=== PATIENT | male | born 1940 | race Caucasian/White ===

== ENCOUNTER 2021-11-20 15:45 | Outpatient (CLI) | payer OTHER, SELFPAY ==
--- NOTE | ~2021-11-20 | US_ITS ---
US renal BI 11/20/2021 16:19 Procedure: Realtime transabdominal ultrasound of the kidneys and bladder. Indication: Essential hypertension Comparison: 12/17/2015 Findings: Renal echotexture is normal bilaterally without hydronephrosis, contour deforming mass or r enal calculus. There are bilateral renal cysts measuring up to 2.9 cm on the right and 1.8 cm on the left The right kidney measures 12.3 cm and left kidney measures 12.9 cm. Bladder wall is mildly irre gular. Enlarged prostate gland. Impression: 1: Bilateral renal cysts. Reviewed, dictated and finalized at location A. Impression: 1: Bilateral renal cysts.
== END 2021-11-20 15:46 | disposition home or self-care (01) ==
PROVIDERS: PCP Internal Medicine; Visit Provider Internal Medicine Nephrology
DX: I10 Essential (primary) hypertension (principal); N28.1 Cyst of kidney, acquired
CPT/HCPCS: 76775

== ENCOUNTER 2021-12-03 23:07 | Emergency (ER) | payer OTHER, SELFPAY ==
--- NOTE | ~2021-12-03 | CT_ITS ---
EXAMINATION: CT brain wo con DATE: 12/04/2021 00:11 INDICATION: Acute confusion TECHNIQUE: Computed tomography (CT) of the head was performed without intravenous contrast. Sagittal and coronal reconstructions were performed. The mA was adjusted according to patient size. Iterative reconstruction technique was employed. The dose-length product was 605.33 mGy-cm. COMPARISON: None FINDINGS: No acute intracranial hemorrhage, acute infarction or abnormal extra axial fluid collection. There is mild scattered white matter hypoattenuation consistent with chronic small vessel ischemic disease. Symmetric prominence of the sulci consistent with mild age-appropriate diffuse cerebral volume loss. Ventricles are normal and symmetric. No mass/mass effect. Mild mucosal thickening the bilateral ethm oid sinuses. The orbits and mastoid air cells are normal. IMPRESSION: 1. No acute intracranial process. 2. Age-related changes including mild diffuse volume loss and mild scattered white matter hypoattenua tion consistent with chronic small vessel ischemic disease. Reviewed, dictated and finalized at location A. IMPRESSION: 1. No acute intracranial process. 2. Age-related changes including mild diffuse volume loss and mild scattered wh ite matter hypoattenuation consistent with chronic small vessel ischemic diseas e.
--- NOTE | ~2021-12-03 | XR_ITS ---
EXAMINATION: XR chest 2V DATE: 12/04/2021 00:15 INDICATION: Confusion TECHNIQUE: PA and lateral views of the chest were obtained. COMPARISON: None FINDINGS: The lungs are clear with no focal airspace opacities, pulmonary edema, pleural effusion or pneumothor ax. The cardiomediastinal silhouette is normal. There are bridging osteophytes at multiple levels in the spine, consistent with diffuse idiopathic skeletal hyperostosis (DISH). IMPRESSION: 1. No acute cardiopulmonary disease. Reviewed, dictated and finalized at location A.
[2021-12-03 23:14] VITALS: BP 129/56; PULSE 61; RESP 18; TEMP 36.2; O2SAT 97
--- NOTE | 2021-12-03 23:35 | ECG_ITS ---
Measurements Intervals [place] Rate: 59 P: 16 SC: 193 QRS: -12 QRSD: 88 T: 30 QT: 408 QTc: 407 Interpretive Statements SINUS BRADYCARDIA WITH SINUS ARRHYTHMIA DELAYED PRECORDIAL R/S TRANSITION VOLTAGE CRITERIA FOR LVH BORDERLINE ECG Electronically Signed On 12-04-2021 6:46:30 CDT by Pj Nolasco D.O.
--- NOTE | 2021-12-03 23:35 | PC.NURSE ---
BS 178
[2021-12-03 23:36] LABS: Glucose Point of Care 179 mg/dl (65-105)
--- NOTE | 2021-12-04 00:05 | PC.NURSE ---
Pt to CT scan via stretcher at this time.
--- NOTE | 2021-12-04 00:21 | ED.AMS ---
HPI - Altered Mental Status General Chief Complaint: Altered Mental Status Stated Complaint: disoriented, Altered LOC Time Seen by Provider: 12/03/21 23:15 Source: patient, family, RN notes reviewed and old records reviewed Mode of arrival: ambulatory Limitations: altered mental status History of Present Illness HPI narrative: This is an 81 year old male who presents for evaluation of confusion. Patient is present with his daughter. His daughter states she spoke with patient at 4pm today and he was normal. Patient called her at 1030 pm tonight confused. She states patient told her that he just woke up and he thought it was morning time. She states she could not convince patient that it was night time. She states when she went to his house , he was sitting on the couch drinking coffee and watching the news. His daughter states he does not have diagnosis of dementia. She reports he has forgetfulness at times but nothing like this. Patient does not have any complaints. He is aware of his name, age, year and month. He denies any falls. Related Data Home Medications Medication Instructions Recorded Confirmed aspirin 81 mg tablet,delayed 81 mg PO DAILY 05/25/19 07/09/21 release (Adult Aspirin Regimen) calcium carbonate 600 mg calcium 600 mg PO DAILY 11/24/19 07/09/21 (1,500 mg) tablet (Calcium) cinnamon bark 500 mg capsule 500 mg PO DAILY 11/24/19 07/09/21 (Cinnamon) fish oil-dha-epa 1,200 mg-144 cap PO 11/24/19 07/09/21 mg-216 mg capsule multivitamin (Multiple Vitamins 1 tablet PO DAILY 11/24/19 07/09/21 tablet) vitamin B complex (Super B-50 1 cap PO DAILY 11/24/19 07/09/21 Complex capsule) melatonin 5 mg capsule mg PO .qhs PRN 06/18/20 07/09/21 ketoconazole 2 % topical cream 1 applic topical BID PRN 12/26/20 07/09/21 Allergies Allergy/AdvReac Type Severity Reaction Status Date / Time primidone [From Mysoline] AdvReac Severe Dizziness Verified 12/04/21 00:06 Review of Systems Review of Systems: All systems reviewed & are unremarkable except as noted in HPI and below Constitutional: Constitutional: Denies chills, Denies fatigue and Denies fever(s) Eyes: Eyes: Denies change in vision ENT: Denies nasal congestion and Denies sore throat Cardiovascular: Cardiovascular: Denies chest pain Respiratory: Respiratory: Denies chest congestion and Denies dyspnea Gastrointestinal: Gastrointestinal: Denies nausea and Denies vomiting Neurologic: Denies syncope, Denies headache(s) and Denies focal weakness PMFSH Past Medical History Medical History Athletes foot GERD (gastroesophageal reflux disease) Hyperlipemia Hypertension Surgical History Surgical History History of removal of skin mole Family History Family History Mother Family history of respiratory disorder, Onset Age: 56 Patient's mother is Father Cerebrovascular accident, Onset Age: 89 Patient's father is Sibling Family history of heart disease in male family member before age 55, Onset Age: 79 Patient's brother is Other Hypertension Social History Social History Smoking status: Never smoker Alcohol intake: never Substance use: never Substance use type: does not use Exam Const: General: healthy appearing, no acute distress and alert Nutritional Appearance: well nourished Orientation/consciousness: patient oriented x3 Limitations: no limitations HENMT: Head: normal to inspection Face and sinus: normal facial exam Throat: posterior oropharynx normal Eyes: Pupils: Equal, round and reactive pupils present EOM: EOMs intact bilaterally Chest: Chest palpation & inspection: normal inspection of the chest Resp: Effort & Inspection:
[2021-12-04 00:30] LABS: Appearance Urine Slightly Cloudy (Clear); Bilirubin Urine Negative (Negative); Blood Urine Negative (Negative); Color Urine Yellow (Yellow); Glucose Urine UA Negative (Negative); Ketones Urine Negative (Negative); Leukocyte Esterase Ur Negative LEU/UL (Negative); Nitrate Urine Negative (Negative); Protein Urine Negative (Negative); Urobilinogen Urine 0.2 mg/dL (<2.0); pH Urine 5.5 (5.0-9.0)
[2021-12-04 00:31] LABS: Basophils Percent Auto 0.6 % (0.2-1.2); Eosinophils Absolute Auto 0.3 K/mm3 (0-0.3); Eosinophils Percent Auto 4.9 % (0-4.4); Hematocrit 37.7 % (42.0-52.0); Hemoglobin 12.4 g/dL (14.0-18.0); Immature Granulocyte Absolute 0.01 K/mm3 (0.00-0.031); Immature Granulocyte Percent A 0.2 % (0-0.5); Lymphocytes Absolute Auto 2.27 K/mm3 (0.9-3.2); Lymphocytes Percent Auto 34.9 % (18.3-44.2); Mean Corpuscular HGB Conc 32.9 g/dl (32-36); Mean Corpuscular Hemoglobin 30.1 pg (26-34); Mean Corpuscular Volume 91.5 fl (80-100); Mean Platelet Volume 11.5 fl (7.4-10.4); Monocytes Percent Auto 14.8 % (2.6-8.5); Neutrophils Absolute Auto 2.9 K/mm3 (1.3-6.7); Neutrophils Percent Auto 44.6 % (45.5-73.1); Platelet Count Result 155 k/mm3 (150-375); Red Blood Count 4.12 M/mm3 (4.6-6.20); Red Cell Distribution Width 14.1 % (11.5-14.5); White Blood Count 6.5 K/mm3 (4.5-10.0)
[2021-12-04 00:36] LABS: Alanine Aminotransferase 16 U/L (6-50); Alkaline Phosphatase 59 U/L (38-126); Anion Gap 11 mmol/L (8-16); Aspartate Amino Transferase 23 U/L (17-59); Bilirubin,Total 0.6 mg/dL (0.2-1.3); Blood Urea Nitrogen 20 mg/dL (9-20); Calcium 8.8 mg/dL (8.4-10.2); Carbon Dioxide 23 mmol/L (22-30); Chloride 105 mmol/L (98-107); Estimated CRCL calculation 39 ml/min; Estimated Glomerular Filt Rate 58; Glucose 170 mg/dL (65-110); Potassium 4.1 mmol/L (3.4-5.0); Sodium 139 mmol/L (137-145)
[2021-12-04 00:37] LABS: Mucus Urine Rare /lpf; RBC Urine 0-2 /hpf (0-2); Squamous Epithelial Cell Urine Rare /hpf (Few)
[2021-12-04 00:38] LABS: INR 1.2; Prothrombin Time 14.5 Seconds (11.1-14.7)
[2021-12-04 00:39] LABS: Add Urine Microscopic? YES; Partial Thromboplastin Time 33.5 SECONDS (22.3-36.8)
[2021-12-04 00:47] LABS: Troponin I < 0.012 ng/mL (0.000-0.034)
[2021-12-04 00:53] LABS: Ethanol < 10 mg/dL (<10)
[2021-12-04 01:04] LABS: SARS-CoV-2 RNA PCR Negative
[2021-12-04 01:10] LABS: Amphetamine Screen Urine Negative (Negative); Barbiturate Screen Urine Negative (Negative); Benzodiazepines Screen Urine Negative (Negative); Cannabinoid Screen Urine Negative (Negative); Methadone Screen Urine Negative (Negative); Opiate Screen Urine Negative (Negative); Phencyclidine Screen Urine Negative (Negative)
[2021-12-04 01:13] VITALS: BP 139/63; PULSE 50; RESP 19; O2SAT 96
[2021-12-04 03:06] LABS: Cocaine Screen Urine Negative (Negative)
== END 2021-12-04 02:00 | disposition home or self-care (01) ==
PROVIDERS: Emergency Provider General Practice; PCP Internal Medicine
DX: R41.0 Disorientation, unspecified (principal); Z20.822 Contact with and (suspected) exposure to COVID-19; E78.5 Hyperlipidemia, unspecified; I10 Essential (primary) hypertension; K21.9 Gastro-esophageal reflux disease without esophagitis; Z79.82 Long term (current) use of aspirin; Z66 Do not resuscitate; R00.1 Bradycardia, unspecified; R94.31 Abnormal electrocardiogram [ECG] [EKG]; Z79.899 Other long term (current) drug therapy
CPT/HCPCS: 36415; 70450; 71046; 80053; 80307; 81001; 82948; 84484; 85025; 85610; 85730; 93005; 99284; C9803; U0003; U0005

== ENCOUNTER 2022-09-09 02:03 | Day surgery (SDC) | payer OTHER, SELFPAY ==
[2022-08-29 11:32] VITALS: BMI 25.9
[2022-09-09 07:00] VITALS: BP 173/62; PULSE 50; RESP 20; TEMP 36.3; O2SAT 20
[2022-09-09] MEDS: LACTATED RINGERS 1,000 ML 150 ML IV CONT (07:13)
--- NOTE | 2022-09-09 07:16 | PM.HPGS ---
History of Present Illness History of Present Illness Consent: Risks, benefits, and alternatives have been discussed and questions answered. Patient agrees to proceed with procedure. Chief complaint: positive cologuard Narrative: Erik Her is a 82 year old male Presents for screening colonoscopy. Patient's current weight appetite and bowel movements are normal. Patient denies abdominal pain. He has had no bleeding. Family history noncontributory. Apparently Cologuard test was performed and found to be positive. Review of Systems Review of Systems: Review of systems noncontributory. [facility] Past Medical History Medical History Athletes foot GERD (gastroesophageal reflux disease) Hyperlipemia Hypertension Surgical History Surgical History History of removal of skin mole Family History Family History Mother Family history of respiratory disorder, Onset Age: 56 Patient's mother is Father Cerebrovascular accident, Onset Age: 89 Patient's father is Sibling Family history of heart disease in male family member before age 55, Onset Age: 79 Patient's brother is Other Hypertension Social History Social History (Updated 07/22/22 @ 09:18 by Carlee Segura MA) Smoking status: Never smoker Alcohol intake: never Substance use: never Substance use type: does not use Lack of Transportation: No Lack of Food: Never True Current Housing: I Have Housing Concerned About Future Housing: No Difficulty Paying Gas/Electric Bills: No Difficulty Paying for Meds: No Currently Unemployed: No Education: Trade/Vocational Certificate Difficulty w/ Childcare or Family Care: No Living arrangements: assisted living Spiritual care concerns: No Meds Home Medications and Allergies Home Medications Medication Instructions Recorded Confirmed Type aspirin 81 mg tablet,delayed 81 mg PO DAILY 05/25/19 08/29/22 History release (Adult Aspirin Regimen) cinnamon bark 500 mg capsule 500 mg PO DAILY 11/24/19 08/29/22 History (Cinnamon) multivitamin (Multiple Vitamins 1 tablet PO DAILY 11/24/19 08/29/22 History tablet) vitamin B complex (Super B-50 1 cap PO DAILY 11/24/19 08/29/22 History Complex capsule) melatonin 5 mg capsule 5 mg PO .qhs PRN Insomnia 06/18/20 08/29/22 History donepezil 5 mg tablet (Aricept) 5 mg PO QHS #90 tabs 05/27/22 09/09/22 Rx tamsulosin 0.4 mg capsule See Rx Instructions .Route 05/27/22 08/29/22 Rx .COMPLEX #90 caps verapamil 240 mg 24 hr See Rx Instructions .Route 05/27/22 08/29/22 Rx capsule,extended release .COMPLEX #90 caps sodium,potassium,mag sulfates 17.5 See Rx Instructions PO .COMPLEX 08/28/22 08/29/22 Rx gram-3.13 gram-1.6 gram oral soln #354 mL (Suprep Bowel Prep Kit) acetaminophen 650 mg 650 mg PO QID PRN Pain 08/29/22 08/29/22 History tablet,extended release (Arthritis Pain Relief (acetaminophen) ER) fluticasone propionate 50 1 spray intranasal BID 08/29/22 08/29/22 History mcg/actuation nasal spray,suspension loratadine 10 mg tablet 10 mg PO DAILY PRN Allergy Symptoms 08/29/22 08/29/22 History polyethylene glycol 3350 17 17 g PO DAILY PRN Constipation 08/29/22 08/29/22 History gram/dose oral powder sodium chloride 0.65 % nasal spray 4 spray intranasal QID PRN Dry 08/29/22 08/29/22 History aerosol (Saline Nasal) Nasal Passages Calcium 600/Vit D 800 1 tab-cap PO DAILY 09/02/22 09/02/22 History finasteride 5 mg tablet 5 mg PO DAILY 09/02/22 09/02/22 History omega 3-ggy-egn-fish oil 1,000 mg 1 cap PO DAILY 09/02/22 09/02/22 History (120 mg-180 mg) capsule (Fish Oil) pravastatin 20 mg tablet 20 mg PO DAILY 09/02/22 09/02/22 History propranolol 20 mg tablet 40 mg PO Q12H 09/02/22
--- NOTE | 2022-09-09 07:28 | WPDANESEPPF ---
Anes - Initial Pre Proc Eval Procedure: Operation Date: 09/09/22 08:00 Proposed Procedures p Colonoscopy - Nino Gordon MD Date/Time: 09/09/22 07:28 Surgeon: Nino Gordon MD Pre Op Diagnosis: positive cologuard Patient Data Age: 82 Gender: M Height: 1.7 m Weight: 73.2 kg Last Vital Signs Temp 97.3 F L 09/09/22 07:00 Pulse 50 L 09/09/22 07:00 Resp 20 09/09/22 07:00 BP 173/62 H 09/09/22 07:00 Pulse Ox 20 L 09/09/22 07:00 O2 Del Method Room Air 09/09/22 07:00 Allergies Allergy/AdvReac Type Severity Reaction Status Date / Time primidone [From Mysoline] AdvReac Severe Dizziness Verified 09/09/22 06:56 Home Medications Medication Instructions Recorded Confirmed Type aspirin 81 mg tablet,delayed 81 mg PO DAILY 05/25/19 08/29/22 History release (Adult Aspirin Regimen) cinnamon bark 500 mg capsule 500 mg PO DAILY 11/24/19 08/29/22 History (Cinnamon) multivitamin (Multiple Vitamins 1 tablet PO DAILY 11/24/19 08/29/22 History tablet) vitamin B complex (Super B-50 1 cap PO DAILY 11/24/19 08/29/22 History Complex capsule) melatonin 5 mg capsule 5 mg PO .qhs PRN Insomnia 06/18/20 08/29/22 History donepezil 5 mg tablet (Aricept) 5 mg PO QHS #90 tabs 05/27/22 09/09/22 Rx tamsulosin 0.4 mg capsule See Rx Instructions .Route 05/27/22 08/29/22 Rx .COMPLEX #90 caps verapamil 240 mg 24 hr See Rx Instructions .Route 05/27/22 08/29/22 Rx capsule,extended release .COMPLEX #90 caps sodium,potassium,mag sulfates 17.5 See Rx Instructions PO .COMPLEX 08/28/22 08/29/22 Rx gram-3.13 gram-1.6 gram oral soln #354 mL (Suprep Bowel Prep Kit) acetaminophen 650 mg 650 mg PO QID PRN Pain 08/29/22 08/29/22 History tablet,extended release (Arthritis Pain Relief (acetaminophen) ER) fluticasone propionate 50 1 spray intranasal BID 08/29/22 08/29/22 History mcg/actuation nasal spray,suspension loratadine 10 mg tablet 10 mg PO DAILY PRN Allergy Symptoms 08/29/22 08/29/22 History polyethylene glycol 3350 17 17 g PO DAILY PRN Constipation 08/29/22 08/29/22 History gram/dose oral powder sodium chloride 0.65 % nasal spray 4 spray intranasal QID PRN Dry 08/29/22 08/29/22 History aerosol (Saline Nasal) Nasal Passages Calcium 600/Vit D 800 1 tab-cap PO DAILY 09/02/22 09/02/22 History finasteride 5 mg tablet 5 mg PO DAILY 09/02/22 09/02/22 History omega 8-gyy-omg-fish oil 1,000 mg 1 cap PO DAILY 09/02/22 09/02/22 History (120 mg-180 mg) capsule (Fish Oil) pravastatin 20 mg tablet 20 mg PO DAILY 09/02/22 09/02/22 History propranolol 20 mg tablet 40 mg PO Q12H 09/02/22 09/09/22 History sodium,potassium,mag sulfates 17.5 See Rx Instructions PO .COMPLEX 09/08/22 Rx gram-3.13 gram-1.6 gram oral soln #354 mL (Suprep Bowel Prep Kit) Patient hx anesthesia problems: none Family hx anesthesia problems: none Results Review: All pre-operative results and documents have been reviewed as part of the pre-operative evaluation. [facility] Past Medical History Medical History Athletes foot GERD (gastroesophageal reflux disease) Hyperlipemia Hypertension Surgical History Surgical History History of removal of skin mole Family History Family History Mother Family history of respiratory disorder, Onset Age: 56 Patient's mother is Father Cerebrovascular accident, Onset Age: 89 Patient's father is Sibling Family history of heart disease in male family member before age 55, Onset Age: 79 Patient's brother is Other Hypertension Social History Social History (Updated 07/22/22 @ 09:18 by Carlee Segura MA) Smoking status: Never smoker Alcohol intake: never Substance use: never Substance use type: does not use Lack of Transportati
[2022-09-09 08:11] VITALS: BP 124/58; PULSE 43; RESP 12; O2SAT 97
[2022-09-09 08:21] VITALS: BP 152/66; PULSE 42; RESP 12; O2SAT 97
[2022-09-09 08:28] VITALS: BP 132/58; PULSE 45; RESP 13; O2SAT 98
[2022-09-09 08:38] VITALS: BP 162/76; PULSE 44; RESP 11; O2SAT 97
== END 2022-09-09 08:49 | disposition home or self-care (01) ==
PROVIDERS: PCP Family Medicine; Visit Provider Internal Medicine Gastroenterology
PROC: 0DJD8ZZ Inspection of Lower Intestinal Tract, Via Natural or Artificial Opening Endoscopic (ICD-10-PCS; CPT 45378; principal; 2022-09-09 08:00)
DX: R19.5 Other fecal abnormalities (principal); D12.2 Benign neoplasm of ascending colon; D12.5 Benign neoplasm of sigmoid colon; K57.30 Diverticulosis of large intestine without perforation or abscess without bleeding; K64.8 Other hemorrhoids; I10 Essential (primary) hypertension; E78.5 Hyperlipidemia, unspecified; K21.9 Gastro-esophageal reflux disease without esophagitis; Z79.82 Long term (current) use of aspirin
CPT/HCPCS: 45385; 88305; J2704; J7120

== ENCOUNTER 2022-11-08 13:10 | Observation (INO) | payer OTHER, SELFPAY ==
[2022-11-08] VITALS (8 sets, daily range): BP systolic 126–162; BP diastolic 54–141; PULSE 56–61; RESP 13–21; TEMP 37.4–37.8; O2SAT 95–98
--- NOTE | ~2022-11-08 | XR_ITS ---
EXAMINATION: XR chest 2V DATE: 11/08/2022 14:13 INDICATION: Weakness TECHNIQUE: Frontal and lateral views of the chest are obtained COMPARISON: 12/04/2021 FINDINGS: There is a small left pleural effusion. There are minimal airspace opacities of the left shira ng base. Cardiomegaly is noted. There is no pneumothorax. There is moderate thoracic spondylosis. IMPRESSION: 1. Cardiomegaly. 2. Small left pleural effusion with left basilar airspace opacity, atelectasis versus pneumonia. Reviewed, dictated and finalized at location A.
--- NOTE | ~2022-11-08 | CT_ITS ---
EXAMINATION: CT brain wo con DATE: 11/08/2022 15:45 INDICATION: Altered mental status TECHNIQUE: Computed tomography (CT) of the head was performed without intravenous contrast. Sagittal and coronal reconstructions were performed. The mA was adjusted according to patient size. Iterative reconstruction technique was employed. The dose-length product was 832.33 mGy-cm. COMPARISON: head CT dated 12/04/2021 FINDINGS: No acute intracranial hemorrhage, acute infarction or abnormal extra axial fluid collection. There is mild scattered white matter hypoattenuation consistent with chronic small vessel ischemic disease. S ymmetric prominence of the sulci and ventricles consistent with mild age-appropriate diffuse cerebral volume loss. Ventricles are normal and symmetric. No mass/mass effect. Mild mucosal thickening the b ilateral paranasal sinuses. The orbits and mastoid air cells are normal. Intracranial calcified cereb ral atherosclerosis is noted. IMPRESSION: 1. No acute intracranial process. 2. Stable appearance of age-related changes including mild diffuse volume loss and mild scattered whi te matter hypoattenuation consistent with chronic small vessel ischemic disease. Reviewed, dictated and finalized at location A. IMPRESSION: 1. No acute intracranial process. 2. Stable appearance of age-related changes including mild diffuse volume loss and mild scattered white matter hypoattenuation consistent with chronic small v essel ischemic disease.
--- NOTE | 2022-11-08 13:14 | ECG_ITS ---
Measurements Intervals [place] Rate: 56 P: 44 [place]: 195 QRS: -10 QRSD: 93 T: 43 QT: 381 QTc: 370 Interpretive Statements SINUS BRADYCARDIA WITH SINUS ARRHYTHMIA INCOMPLETE RIGHT BUNDLE BRANCH BLOCK DELAYED PRECORDIAL R/S TRANSITION VOLTAGE CRITERIA FOR LVH BASELINE ARTIFACT- I, II, III, AVR, AVF, V1-V6 BORDERLINE ECG COMPARED TO ECG 12/03/2021 23:34:34 INCOMPLETE RIGHT BUNDLE-BRANCH BLOCK NOW PRESENT Electronically Signed On 11-08-2022 15:51:11 CDT by Pj Nolasco D.O.
[2022-11-08 13:29] LABS: Basophils Absolute Auto 0.1 K/mm3 (0.0-0.1); Basophils Percent Auto 0.5 % (0.2-1.2); Eosinophils Absolute Auto 0.2 K/mm3 (0-0.3); Eosinophils Percent Auto 1.5 % (0-4.4); Hematocrit 39.2 % (42.0-52.0); Hemoglobin 13.1 g/dL (14.0-18.0); Immature Granulocyte Absolute 0.03 K/mm3 (0.00-0.031); Immature Granulocyte Percent A 0.3 % (0-0.5); Lymphocytes Absolute Auto 1.77 K/mm3 (0.9-3.2); Lymphocytes Percent Auto 16.1 % (18.3-44.2); Mean Corpuscular HGB Conc 33.4 g/dl (32-36); Mean Corpuscular Hemoglobin 30.8 pg (26-34); Mean Corpuscular Volume 92.2 fl (80-100); Mean Platelet Volume 10.4 fl (7.4-10.4); Monocytes Absolute Auto 1.6 K/mm3 (0.1-0.6); Monocytes Percent Auto 14.5 % (2.6-8.5); Neutrophils Absolute Auto 7.4 K/mm3 (1.3-6.7); Neutrophils Percent Auto 67.1 % (45.5-73.1); Platelet Count Result 157 k/mm3 (150-375); Red Blood Count 4.25 M/mm3 (4.6-6.20); Red Cell Distribution Width 14.2 % (11.5-14.5)
[2022-11-08 13:33] LABS: Appearance Urine Clear (Clear); Bacteria Urine None Seen /hpf; Bilirubin Urine Negative (Negative); Blood Urine Negative (Negative); Color Urine Dark Yellow (Yellow); Glucose Urine UA Negative (Negative); Ketones Urine Trace mg/dL (Negative); Leukocyte Esterase Ur Negative LEU/UL (Negative); Nitrate Urine Negative (Negative); Non Pathogenic Casts 0-2; Protein Urine 3+ mg/dL (Negative); RBC Urine 0-2 /hpf (0-2); Specific Grav Ur 1.022 (1.001-1.035); Squamous Epithelial Cell Urine None seen /hpf (Few); WBC Urine 0-5 /hpf; pH Urine 5.5 (5.0-9.0)
[2022-11-08 13:38] LABS: Add Urine Microscopic? YES
[2022-11-08 13:39] LABS: Alanine Aminotransferase 21 U/L (6-50); Albumin Level 4.1 g/dL (3.5-5.1); Alkaline Phosphatase 59 U/L (38-126); Anion Gap 6 mmol/L (8-16); Aspartate Amino Transferase 28 U/L (17-59); Bilirubin,Total 0.9 mg/dL (0.2-1.3); Blood Urea Nitrogen 24 mg/dL (9-20); Carbon Dioxide 29 mmol/L (22-30); Chloride 104 mmol/L (98-107); Estimated CRCL calculation 38 ml/min; Estimated Glomerular Filt Rate 53; Glucose 125 mg/dL (65-110); Potassium 3.9 mmol/L (3.4-5.0); Sodium 139 mmol/L (137-145)
--- NOTE | 2022-11-08 15:06 | ED.WEAKNESS ---
HPI - Weakness General Chief complaint: Weakness Stated complaint: lethargy/weakness Time Seen by Provider: 11/08/22 14:35 History of Present Illness HPI Narrative: Patient is an 82-year-old male with a history of hypertension, hyperlipidemia presenting with weakness and altered mental status. Patient's family is at bedside and helps with the history. They state that they went to visit him at his nursing facility today and he was much more confused than normal. States that he is normally very active and likes to walk around the facility but he has been increasingly weak and lethargic. States that he has not gotten out of bed today. He also states that he has been coughing a lot. Patient is currently oriented x1. He denies any pain right now. States that he feels tired. Related Data Home Medications Medication Instructions Recorded Confirmed aspirin 81 mg tablet,delayed 81 mg PO DAILY 05/25/19 11/08/22 release (Adult Aspirin Regimen) cinnamon bark 500 mg capsule 500 mg PO DAILY 11/24/19 11/08/22 (Cinnamon) multivitamin (Multiple Vitamins 1 tablet PO DAILY 11/24/19 11/08/22 tablet) vitamin B complex (Super B-50 1 cap PO DAILY 11/24/19 11/08/22 Complex capsule) melatonin 5 mg capsule 5 mg PO .qhs PRN Insomnia 06/18/20 11/08/22 acetaminophen 650 mg 650 mg PO QID PRN Pain 08/29/22 11/08/22 tablet,extended release (Arthritis Pain Relief (acetaminophen) ER) loratadine 10 mg tablet 10 mg PO DAILY PRN Allergy Symptoms 08/29/22 11/08/22 polyethylene glycol 3350 17 17 g PO DAILY PRN Constipation 08/29/22 11/08/22 gram/dose oral powder sodium chloride 0.65 % nasal spray 4 spray intranasal QID PRN Dry 08/29/22 11/08/22 aerosol (Saline Nasal) Nasal Passages Calcium 600/Vit D 800 1 tab-cap PO DAILY 09/02/22 11/08/22 pravastatin 20 mg tablet 20 mg PO DAILY 09/02/22 11/08/22 propranolol 20 mg tablet 40 mg PO Q12H 09/02/22 11/08/22 omega-3 fatty acids-vitamin E 1 cap PO DAILY 11/08/22 11/08/22 1,000 mg capsule tamsulosin 0.4 mg capsule 0.4 mg PO DAILY 11/08/22 11/08/22 verapamil 240 mg 24 hr 240 mg PO DAILY 11/08/22 11/08/22 capsule,extended release Allergies Allergy/AdvReac Type Severity Reaction Status Date / Time primidone [From Mysoline] AdvReac Severe Dizziness Verified 09/10/22 14:42 Review of Systems Review of Systems: All systems reviewed & are unremarkable except as noted in HPI and below PMFSH Past Medical History Medical History (Updated 11/10/22 @ 19:00 by Kandis Guan MD) Benign prostatic hyperplasia Dementia Gastroesophageal reflux disease Hyperlipemia Hypertension Surgical History Surgical History History of removal of skin mole Family History Family History Mother Family history of respiratory disorder, Onset Age: 56 Patient's mother is Father Cerebrovascular accident, Onset Age: 89 Patient's father is Sibling Family history of heart disease in male family member before age 55, Onset Age: 79 Patient's brother is Other Hypertension Social History Social History Smoking status: Never smoker Alcohol intake: never Substance use: never Substance use type: does not use Lack of Transportation: No Lack of Food: Never True Current Housing: I Have Housing Concerned About Future Housing: No Difficulty Paying Gas/Electric Bills: No Difficulty Paying for Meds: No Currently Unemployed: No Education: Trade/Vocational Certificate Difficulty w/ Childcare or Family Care: No Living arrangements: assisted living Spiritual care concerns: No Exam Narrative: GENERAL: Frail elderly male laying in bed, ill-appearing HEAD: Normocephalic, atraumatic. EYES: PERRLA and EOMI. ENT: Nares clear, no rhinorrhea or epist
[2022-11-08] MEDS: SODIUM CHLORIDE 0.9% IV 1,000 ML 999 ML IV CONT (15:11)
[2022-11-08 16:11] LABS: Lipase 28 U/L (23-300)
[2022-11-08 16:15] LABS: Influenza A QL RT-PCR Negative (Negative); Influenza B QL RT-PCR Negative (Negative); SARS-CoV-2 RNA PCR Negative (Negative)
[2022-11-08 16:24] LABS: NT Pro B Type Natriuretic Pept 317 pg/mL (19.9-100); Troponin I < 0.012 ng/mL (0.000-0.034)
[2022-11-08] MEDS: AZITHROMYCIN 500 MG/NS 250 ML 500 MG/250 ML BAG 250 MG IVPB (16:33)
[2022-11-08 17:00] LABS: Troponin I < 0.012 ng/mL (0.000-0.034)
--- NOTE | 2022-11-08 18:57 | PM.IMHP ---
H&P: HPI History of Present Illness Date/Time: 11/08/22 19:00 Chief Complaint: Weakness and increasing confusion. Narrative: This is an 82-year-old male with dementia, hypertension, and hyperlipidemia who presented to the emergency department via EMS from [place] for evaluation of weakness and increasing confusion. He is not an accurate or reliable historian and his daughter Mary provides a majority of the following history, with the patient's permission. Either least or her siblings speak with their father or see him daily. He was last in his usual state of health on Thursday and since that time he has become increasingly confused, lethargic, and he has not been getting up and walking which is very unusual for him. Family members have also noticed that he has developed a dry cough. Staff at his assisted living facility were concerned about him today as he would not get out of bed and he was brought in for evaluation. Temperature was 100.1? F on arrival with stable vital signs. Workup was significant for a WBC count of 11.0, BUN 24, sodium 139, lactic acid 1.0. Chest x-ray showed left basilar airspace opacities and he was given a dose of azithromycin and ceftriaxone for presumed pneumonia. He is being admitted in this setting for further treatment. At the time of my evaluation he has no active complaints aside from mild left-sided pleuritic chest pain when coughing. He denies chills, sweats, headache, sore throat, sinus congestion, exertional chest pain, abdominal pain, nausea, vomiting, and diarrhea Review of Systems Review of Systems: Unable to obtain accurately given his dementia. [facility] Past Medical History Medical History (Updated 11/08/22 @ 23:46 by Josephine Still PA-C) Benign prostatic hyperplasia Dementia Gastroesophageal reflux disease Hyperlipemia Hypertension Surgical History Surgical History History of removal of skin mole Family History Family History Mother Family history of respiratory disorder, Onset Age: 56 Patient's mother is Father Cerebrovascular accident, Onset Age: 89 Patient's father is Sibling Family history of heart disease in male family member before age 55, Onset Age: 79 Patient's brother is Other Hypertension Social History Social History Smoking status: Never smoker Alcohol intake: never Substance use: never Substance use type: does not use Lack of Transportation: No Lack of Food: Never True Current Housing: I Have Housing Concerned About Future Housing: No Difficulty Paying Gas/Electric Bills: No Difficulty Paying for Meds: No Currently Unemployed: No Education: Trade/Vocational Certificate Difficulty w/ Childcare or Family Care: No Living arrangements: assisted living Spiritual care concerns: No Meds Home Medications and Allergies Home Medications Medication Instructions Recorded Confirmed Type aspirin 81 mg tablet,delayed 81 mg PO DAILY 05/25/19 11/08/22 History release (Adult Aspirin Regimen) cinnamon bark 500 mg capsule 500 mg PO DAILY 11/24/19 11/08/22 History (Cinnamon) multivitamin (Multiple Vitamins 1 tablet PO DAILY 11/24/19 11/08/22 History tablet) vitamin B complex (Super B-50 1 cap PO DAILY 11/24/19 11/08/22 History Complex capsule) melatonin 5 mg capsule 5 mg PO .qhs PRN Insomnia 06/18/20 11/08/22 History donepezil 5 mg tablet (Aricept) 5 mg PO QHS #90 tabs 05/27/22 11/08/22 Rx acetaminophen 650 mg 650 mg PO QID PRN Pain 08/29/22 11/08/22 History tablet,extended release (Arthritis Pain Relief (acetaminophen) ER) loratadine 10 mg tablet 10 mg PO DAILY PRN Allergy Symptoms 08/29/22 11/08/22 History polyethylene glycol 3350 17 17 g PO DAILY PRN Constipation 08/29/22
--- NOTE | 2022-11-08 20:05 | ADMGEN ---
This patient, Erik Her, was admitted to Medical Room 344-01. Patient/family oriented to hospital policies and general routines including ID bracelet, bed and alarms, visiting hours, pain management, procedures, bathroom and other care routines, personal items, smoking policy, room service/diet, and visiting hours. Information on how to activate the Rapid Response Team has been discussed. Patient/Family are encouraged to report perceived risks to care and to ask questions if they do not understand what they are told or what they should do.
--- NOTE | 2022-11-08 22:25 | PC.NURSE ---
Patient alert to person. Attempting several times to get out of bed. All side rails are up with alarm on zone 2. Patient not easily redirected and is becoming increasingly agitated. Staffed [employer]ER IS currently sitting bedside. Son, Nino, called to see if he was able to calm patient. Charge nurse and clay house worker notified. Will call physician if further intervention is needed.
[2022-11-09 00:57] LABS: Total Protein Urine Random 110 mg/dL
[2022-11-09 05:37] LABS: Hematocrit 34.3 % (42.0-52.0); Hemoglobin 11.2 g/dL (14.0-18.0); Mean Corpuscular HGB Conc 32.7 g/dl (32-36); Mean Corpuscular Hemoglobin 30.1 pg (26-34); Mean Corpuscular Volume 92.2 fl (80-100); Mean Platelet Volume 10.4 fl (7.4-10.4); Platelet Count Result 141 k/mm3 (150-375); Red Blood Count 3.72 M/mm3 (4.6-6.20); White Blood Count 8.2 K/mm3 (4.5-10.0)
[2022-11-09 05:52] LABS: Anion Gap 4 mmol/L (8-16); Blood Urea Nitrogen 19 mg/dL (9-20); Calcium 7.7 mg/dL (8.4-10.2); Carbon Dioxide 25 mmol/L (22-30); Chloride 109 mmol/L (98-107); Estimated CRCL calculation 41 ml/min; Estimated Glomerular Filt Rate 58; Glucose 102 mg/dL (65-110); Magnesium 1.9 mg/dL (1.6-2.3); Potassium 3.7 mmol/L (3.4-5.0); Sodium 138 mmol/L (137-145)
[2022-11-09 06:00] VITALS: BP 138/53; PULSE 100; RESP 18; TEMP 37; O2SAT 91
[2022-11-09 09:45] VITALS: BP 146/54; PULSE 50
[2022-11-09] MEDS: OMEGA 3 POLYUNSAT FATTY ACIDS 1 GM CAP PO (09:51)
[2022-11-09] MEDS: ENOXAPARIN 40 MG/0.4 ML SYRINGE SUB-Q (09:51)
[2022-11-09] MEDS: PRAVASTATIN SODIUM 20 MG TABLET PO (09:51)
[2022-11-09] MEDS: MULTIVITAMINS THERAPEUTIC TAB (*BKC) 1 TABLET PO (09:51)
[2022-11-09] MEDS: TAMSULOSIN HCL 0.4 MG CAPSULE PO (09:51)
[2022-11-09] MEDS: FLUTICASONE PROPIONATE 0.05% NA SPR 16 GM BTL (*BKC) 1 SPRAY NASAL (09:51)
[2022-11-09] MEDS: FINASTERIDE 5 MG TABLET PO (09:51)
[2022-11-09] MEDS: VITAMIN B COMPLEX CAPSULE 1 CAP PO (09:51)
[2022-11-09] MEDS: ASPIRIN 81 MG ENTERIC TABLET PO (09:51)
--- NOTE | 2022-11-09 12:00 | PM.IMPN ---
Progress Note: A&P Assessment and Plan (1) Community acquired pneumonia: Code(s): J18.9 - Pneumonia, unspecified organism Status: Acute Assessment and Plan: Continue antibiotics (2) Mild dehydration: Code(s): E86.0 - Dehydration Status: Acute (3) Proteinuria: Code(s): R80.9 - Proteinuria, unspecified Status: Acute (4) Dementia: Code(s): F03.90 - Unspecified dementia, unspecified severity, without behavioral disturbance, psychotic disturbance, mood disturbance, and anxiety Status: Acute (5) Essential (primary) hypertension: Code(s): I10 - Essential (primary) hypertension Status: Acute (6) Benign prostatic hyperplasia: Code(s): N40.0 - Benign prostatic hyperplasia without lower urinary tract symptoms Status: Acute Subjective Date/time seen: 11/09/22 12:00 Interval history: No respiratory complaints Exam Narrative: General: Mildly ill-appearing gentleman the semi-Moreno position in bed in no acute distress. Weight: 70.2 kg. BMI: 22.9. HEENT: PERRL, EOMI. Sclera anicteric. Tacky mucous membranes. Neck: Supple. Respiratory: Respirations are nonlabored and lungs are clear to auscultation anteriorly and at the flanks. Cardiovascular: Regular rate and rhythm with S1-S2. Soft systolic murmur at the upper sternal border. Gastrointestinal: Abdomen is soft, nontender, and nondistended with positive bowel sounds. Skin: Warm and dry. No rash or lesions on limited exam. Extremities: No cyanosis, clubbing, or edema. Radial and pedal pulses intact. Neurological: Alert and oriented x1 which is his baseline. Cranial nerves 2-12 are grossly intact. Generalized weakness without gross focal findings. Psychiatric: Cooperative with appropriate mood. Slightly restless. Objective Data Vital Signs Vital Signs: Vital Signs - 24 hr 11/08/22 13:06 11/08/22 13:13 11/08/22 15:14 Temperature 100.1 F H Pulse Rate 56 L 58 L 60 Respiratory Rate 18 19 Blood Pressure 160/62 H 126/86 Pulse Oximetry 96 96 Oxygen Delivery Room Air Fraction of Inspired Oxygen 11/08/22 17:17 11/08/22 18:54 11/08/22 18:57 Temperature Pulse Rate 58 L 61 60 Respiratory Rate 21 H 19 13 Blood Pressure 162/81 H 142/54 H 152/141 H Pulse Oximetry 98 97 98 Oxygen Delivery Fraction of Inspired Oxygen 11/08/22 20:09 11/08/22 20:18 11/08/22 21:00 Temperature 99.3 F Pulse Rate 61 56 L Respiratory Rate 18 18 Blood Pressure 147/55 H Pulse Oximetry 98 95 Oxygen Delivery Room Air Room Air Fraction of Inspired Oxygen 21 11/09/22 06:00 11/09/22 09:51 Temperature 98.6 F Pulse Rate 100 Respiratory Rate 18 Blood Pressure 138/53 L Pulse Oximetry 91 Oxygen Delivery Room Air Fraction of Inspired Oxygen Intake/Output Intake/Output: Intake & Output 11/06/22 11/07/22 11/08/22 11/09/22 23:59 23:59 23:59 23:59 Intake Total 1300 290 Output Total 200 300 Balance 1100 -10 Meds/Results Medications: Active Medications Generic Name Dose Route Start Last Admin Trade Name Freq PRN Reason Stop Dose Admin Acetaminophen 650 mg 11/08/22 23:48 Acetaminophen 325 Mg Tablet PO Q6H PRN Mild Pain (1-3) or Fever Aspirin 81 mg 11/09/22 09:00 11/09/22 09:51 Aspirin 81 Mg Enteric Tablet PO 81 mg DAILY [facility] Administration Calcium Carbonate 500 mg 11/09/22 09:00 11/09/22 09:51 Calcium/Vitamin D 500 Mg Tablet PO 500 mg QAM YOSEPH Administration Donepezil HCl 5 mg 11/09/22 21:00 Donepezil Hcl 5 Mg Tablet PO QHS [facility] Enoxaparin Sodium 40 mg 11/09/22 09:00 11/09/22 09:51 Enoxaparin 40 Mg/0.4 Ml Syringe SUB-Q 40 mg DAILY YOSEPH Administration Finasteride 5 mg 11/09/22 09:00 11/09/22 09:51 Finasteride 5 Mg Tablet PO 5 mg DAILY YOSEPH Administration Fish Oil 1 gm 11/09/22 09:00 11/09/22 09:51 Vansant 3 Polyunsat Fatty Acids 1 Gm Cap PO 1 gm QAM YOSEPH Administrat
[2022-11-09 14:00] VITALS: BP 138/45; PULSE 56; RESP 16; TEMP 36.9; O2SAT 95
[2022-11-09 20:00] VITALS: PULSE 58; RESP 20; O2SAT 94
[2022-11-09 20:44] VITALS: BP 145/54; PULSE 58; RESP 20; TEMP 37.5; O2SAT 94
[2022-11-09] MEDS: PROPRANOLOL HCL 20 MG TABLET 40 MG PO (22:11)
[2022-11-09] MEDS: DONEPEZIL HCL 5 MG TABLET PO (22:11)
[2022-11-09] MEDS: MIRTAZAPINE 15 MG TABLET PO (22:12)
[2022-11-10 03:08] VITALS: BP 179/58; PULSE 50; RESP 20; TEMP 37.2; O2SAT 95
[2022-11-10 05:31] VITALS: BP 157/52
[2022-11-10 08:45] VITALS: BP 187/54; PULSE 43
[2022-11-10] MEDS: PRAVASTATIN SODIUM 20 MG TABLET PO (08:49)
[2022-11-10] MEDS: TAMSULOSIN HCL 0.4 MG CAPSULE PO (08:49)
[2022-11-10] MEDS: FLUTICASONE PROPIONATE 0.05% NA SPR 16 GM BTL (*BKC) 1 SPRAY NASAL (08:49)
[2022-11-10] MEDS: OMEGA 3 POLYUNSAT FATTY ACIDS 1 GM CAP PO (08:49)
[2022-11-10] MEDS: ASPIRIN 81 MG ENTERIC TABLET PO (08:49)
[2022-11-10] MEDS: VITAMIN B COMPLEX CAPSULE 1 CAP PO (08:49)
[2022-11-10] MEDS: FINASTERIDE 5 MG TABLET PO (08:49)
[2022-11-10] MEDS: ENOXAPARIN 40 MG/0.4 ML SYRINGE SUB-Q (08:49)
[2022-11-10] MEDS: MULTIVITAMINS THERAPEUTIC TAB (*BKC) 1 TABLET PO (08:49)
--- NOTE | 2022-11-10 09:07 | PC.NURSE ---
Distillery Worker spoke with Hospitalist Nick in regards to patients blood pressure, heart rate, and AM medications. Holding cardiac medications accordingly (see MAR). Patient is asymptomatic. Distillery Worker will continue to monitor.
[2022-11-10] MEDS: CEFDINIR 300 MG CAPSULE PO (09:24)
--- NOTE | 2022-11-10 12:14 | PM.DS ---
DS: Admitting Diagnosis Discharge Date November 10, 2022 Admitting Diagnosis Pneumonia, worsening dementia DS: Discharge Diagnosis Discharge Diagnosis (1) Community acquired pneumonia: Code(s): J18.9 - Pneumonia, unspecified organism Status: Acute (2) Mild dehydration: Code(s): E86.0 - Dehydration Status: Acute (3) Proteinuria: Code(s): R80.9 - Proteinuria, unspecified Status: Acute (4) Dementia: Code(s): F03.90 - Unspecified dementia, unspecified severity, without behavioral disturbance, psychotic disturbance, mood disturbance, and anxiety Status: Acute (5) Essential (primary) hypertension: Code(s): I10 - Essential (primary) hypertension Status: Acute (6) Benign prostatic hyperplasia: Code(s): N40.0 - Benign prostatic hyperplasia without lower urinary tract symptoms Status: Acute Plan The patient presented to the emergency department from his assisted living facility for evaluation of weakness and lethargy as per HPI. Labs, imaging, EKG, and all reports were personally reviewed. He appears to have a left-sided pneumonia and he has been started on azithromycin and ceftriaxone. Attempt sputum for culture. Check Legionella and pneumococcal antigens as well as mycoplasma IgM. He will be judiciously hydrated overnight as he appears dehydrated. Blood pressures were reviewed and they have been stable. One of his children will be staying with him while in the hospital as he does tend to get restless at night. His increasing confusion is likely related to the underlying infection. Urine shows 3+ protein which we will quantitate. His home medications will be reviewed and resumed as appropriate. DS: Summary Hospital Course Hospital Course: Patient is an 82-year-old gentleman came in with altered mental status and worsening from his baseline dementia. Hyper leave most of this was likely related to worsening dementia overall. He is doing normal activities now. He likely has good days and bad days. Possible pneumonia on chest x-ray. This will be treated with Omnicef on discharge. Time Spent with Patient Time attestation: Total time spent providing and/or coordinating discharge services: Exam Narrative: General: Mildly ill-appearing gentleman the semi-Moreno position in bed in no acute distress. Weight: 70.2 kg. BMI: 22.9. HEENT: PERRL, EOMI. Sclera anicteric. Tacky mucous membranes. Neck: Supple. Respiratory: Respirations are nonlabored and lungs are clear to auscultation anteriorly and at the flanks. Cardiovascular: Regular rate and rhythm with S1-S2. Soft systolic murmur at the upper sternal border. Gastrointestinal: Abdomen is soft, nontender, and nondistended with positive bowel sounds. Skin: Warm and dry. No rash or lesions on limited exam. Extremities: No cyanosis, clubbing, or edema. Radial and pedal pulses intact. Neurological: Alert and oriented x1 which is his baseline. Cranial nerves 2-12 are grossly intact. Generalized weakness without gross focal findings. Psychiatric: Cooperative with appropriate mood. Slightly restless. DS: Data Data Completed and Pending Labs on day of discharge: Preliminary micro results at discharge 11/08/22 15:30 Blood Culture - Preliminary Blood 11/08/22 15:27 Blood Culture - Preliminary Blood Discharge Plan Discharge Attending physician on discharge: Dameon Romero Discharging Clinician: Dameon Romero Patient Disposition: Home, Self-Care Activity: as tolerated Diet: as tolerated Patient Instructions: Antibiotic Form Stand Alone Forms: General Discharge Information Follow-up/Referrals: Roberto Wan MD [Primary Care Provider] - Discharge Medications: New cefdinir 300 mg capsule 300 mg PO Q12H Qty: 10 0RF Continued multivitamin [Multiple Vitamins] Tablet 1 tablet PO DAILY cinnamon bark [Cinnamon] 500 mg capsule 500 mg PO DAILY vit
[2022-11-10 15:00] VITALS: BP 185/59; PULSE 46; RESP 18; TEMP 36.6; O2SAT 98
[2022-11-12 01:29] LABS: Pneumococcal Antigen Urine Not Detected (Not Detected)
[2022-11-13 23:14] LABS: Legionella pneumophila Ag Ur Not Detected (Not Detected)
[2022-11-14 13:18] LABS: Mycoplasma IgM Antibody Titer 0 U/mL (<770)
== END 2022-11-10 16:35 | disposition home or self-care (01) ==
LOC: ANHED 14:35 → ANH3MED 18:18
PROVIDERS: Physician Assistant; Admitting Provider Chiropractor; Emergency Provider Emergency Medicine; PCP Family Medicine; Visit Provider Chiropractor
DX: J18.9 Pneumonia, unspecified organism (principal); E86.0 Dehydration; R80.9 Proteinuria, unspecified; F03.90 Unspecified dementia, unspecified severity, without behavioral disturbance, psychotic disturbance, mood disturbance, and anxiety; I10 Essential (primary) hypertension; N40.0 Benign prostatic hyperplasia without lower urinary tract symptoms; R07.89 Other chest pain; R05.9 Cough, unspecified; R53.1 Weakness; E78.5 Hyperlipidemia, unspecified; R41.82 Altered mental status, unspecified; Z20.822 Contact with and (suspected) exposure to COVID-19; R00.1 Bradycardia, unspecified; J90 Pleural effusion, not elsewhere classified; I45.10 Unspecified right bundle-branch block; K21.9 Gastro-esophageal reflux disease without esophagitis; Z82.49 Family history of ischemic heart disease and other diseases of the circulatory system; Z79.1 Long term (current) use of non-steroidal anti-inflammatories (NSAID); Z79.82 Long term (current) use of aspirin; Z79.899 Other long term (current) drug therapy
CPT/HCPCS: 36415; 70450; 71046; 80048; 80053; 81001; 81050; 83605; 83690; 83735; 83880; 84156; 84484; 85025; 85027; 86738; 87040; 87449; 87636; 87899; 93005; 96365; 96367; 96372; 99285; A9270; G0378; J0456; J0696; J1650; J7030

== ENCOUNTER 2023-03-21 21:21 | Emergency (ER) | payer OTHER, SELFPAY ==
--- NOTE | ~2023-03-21 | XR_ITS ---
EXAMINATION: XR humerus RT DATE: 03/21/2023 22:54 INDICATION: Right upper arm pain. TECHNIQUE: 2 views of right humerus on 3 radiographs were obtained. COMPARISON: None. FINDINGS: Bone alignment is normal. No fracture. There is mild osteoarthritis of the elbow joint and glenohumeral joint and severe osteoarthritis of acromioclavicular joint. IMPRESSION: 1. Polyarticular osteoarthritis. Reviewed, dictated and finalized at location E. OCHEMIST
--- NOTE | ~2023-03-21 | XR_ITS ---
EXAMINATION: XR hip BI 2V w AP pelvis DATE: 03/21/2023 22:54 INDICATION: Right hip pain. Fall. TECHNIQUE: An anteroposterior view of the pelvis and 2 views of each hip were obtained. COMPARISON: None. FINDINGS: There is lumbar dextrocurvature and severe spondylosis. No fracture. There is mild osteoart hritis of the hips. IMPRESSION: 1. Mild osteoarthritis of the hips. Reviewed, dictated and finalized at location E. OCK MAKER
--- NOTE | ~2023-03-21 | CT_ITS ---
EXAMINATION: CT brain wo con DATE: 03/21/2023 23:17 INDICATION: Head injury. TECHNIQUE: Computed tomography (CT) of the head was performed without intravenous contrast. The mA wa s adjusted according to patient size. Iterative reconstruction technique was employed. The dose-lengt h product was 756.67 mGy-cm. COMPARISON: Head CT 11/08/2022 FINDINGS: There are scattered areas of low attenuation in the cerebral white matter, which is within normal limits for the patient's age. There is no intracranial hemorrhage, acute infarction, or abnorm al intracranial mass lesion. The ventricles are normal in size. The orbits are normal. There is a rig ht frontal scalp hematoma. There are fractures of the nasal bones and right nasal process of maxilla. There is mild mucosal thickening in the paranasal sinuses. The mastoid air cells are normal. IMPRESSION: 1. Normal aging brain. 2. Fractures of the nasal bones and right nasal process of maxilla. Reviewed, dictated and finalized at location E. URY OPERATOR
--- NOTE | ~2023-03-21 | CT_ITS ---
EXAMINATION: CT facial & cervical spine wo DATE: 03/21/2023 23:17 INDICATION: Head injury. TECHNIQUE: Computed tomography (CT) of the maxillofacial region and cervical spine was performed with out intravenous contrast. Automated exposure control and iterative reconstruction technique were empl oyed. The dose-length product was 404.38 mGy-cm. COMPARISON: None FINDINGS: MAXILLOFACIAL CT: There is a right frontal scalp hematoma. The orbits are normal. There are fractures of the nasal bone s and right nasal process of maxilla. There is leftward deviation of the nasal septum. There is mucos al thickening in the paranasal sinuses. The mastoid air cells are normal. CERVICAL SPINE CT: There is 5 degrees dextrocurvature of cervical spine. There is kyphosis of cervical spine. There is m ild chronic anterior wedging of T1 vertebral body. There is mildly decreased disc height at C2-C3, mo derately decreased disc height at C3-C4 and C4-C5, and severely decreased disc height at C5-C6 and C6 -C7. There are bridging endplate osteophytes at C3-C4, C4-C5, and C6-C7. The following disc levels ar e specifically discussed: C2-C3: There is severe right and mild left uncovertebral joint osteoarthritis. There is severe bilate ral facet joint osteoarthritis. There is mild bilateral neural foraminal stenosis. There is no centra l canal stenosis. C3-C4: There is ankylosis of the uncovertebral joints with severe hypertrophy. There is ankylosis of the facet joints with severe right and moderate left hypertrophy. There is moderate bilateral neural foraminal stenosis. There is no central canal stenosis. C4-C5: There is ankylosis of the uncovertebral joints with mild hypertrophy. There is ankylosis of th e facet joints with moderate right and severe left hypertrophy. There is mild bilateral neural forami nal stenosis. There is no central canal stenosis. C5-C6: There is severe bilateral uncovertebral joint osteoarthritis. There is severe bilateral facet joint osteoarthritis. There is mild bilateral neural foraminal stenosis. There is mild central canal stenosis. C6-C7: There is severe bilateral uncovertebral joint osteoarthritis. There is mild bilateral facet justino int osteoarthritis. There is moderate right and mild left neural foraminal stenosis. There is mild ce ntral canal stenosis. C7-T1: There is mild bilateral uncovertebral joint osteoarthritis. There is severe bilateral facet justino int osteoarthritis. There is mild bilateral neural foraminal stenosis. There is no central canal sten osis. IMPRESSION: 1. Fractures of the nasal bones and right nasal process of maxilla. 2. Severe cervical spondylosis. Reviewed, dictated and finalized at location E. F COUNSEL
--- NOTE | ~2023-03-21 | XR_ITS ---
EXAMINATION: XR hand LT min 3V DATE: 03/22/2023 01:28 INDICATION: Left hand pain. Fall. TECHNIQUE: 3 views of left hand were obtained. COMPARISON: None. FINDINGS: Bone alignment is normal. No fracture. There is mild osteoarthritis of first carpometacarpa l joint and most of the metacarpophalangeal joints and interphalangeal joints. IMPRESSION: 1. Mild polyarticular osteoarthritis. Reviewed, dictated and finalized at location E. [place] SALES VITAMIN CONSULTANT
--- NOTE | ~2023-03-21 | XR_ITS ---
EXAMINATION: XR hand RT min 3V DATE: 03/22/2023 01:28 INDICATION: Right hand pain. Fall. TECHNIQUE: 3 views of right hand were obtained. COMPARISON: None. FINDINGS: Bone alignment is normal. No fracture. There is mild osteoarthritis of triscaphe joint and most of the metacarpophalangeal joints and interphalangeal joints. There is moderate osteoarthritis o f third and fourth distal interphalangeal joints. IMPRESSION: 1. Polyarticular osteoarthritis. Reviewed, dictated and finalized at location E. ANCE TECHNICIAN
[2023-03-21 21:21] VITALS: BP 176/66; PULSE 45; RESP 15; TEMP 36.3; O2SAT 97
--- NOTE | 2023-03-21 21:34 | ECG_ITS ---
Measurements Intervals [place] Rate: 47 P: 40 AK: 197 QRS: -13 QRSD: 85 T: 20 QT: 468 QTc: 415 Interpretive Statements SINUS BRADYCARDIA WITH SINUS ARRHYTHMIA DELAYED PRECORDIAL R/S TRANSITION VOLTAGE CRITERIA FOR LVH BASELINE ARTIFACT- I, II, III, AVR, AVL, AVF BORDERLINE ECG COMPARED TO ECG 11/08/2022 13:14:12 NO SIGNIFICANT CHANGES Electronically Signed On 03-22-2023 11:59:55 JEWELRY CASTING MODEL MAKER APPRENTICE by Pj Nolasco D.O.
[2023-03-21 22:17] LABS: Basophils Absolute Auto 0.1 K/mm3 (0.0-0.1); Basophils Percent Auto 0.6 % (0.2-1.2); Eosinophils Absolute Auto 0.3 K/mm3 (0-0.3); Eosinophils Percent Auto 3.7 % (0-4.4); Hematocrit 38.9 % (42.0-52.0); Hemoglobin 12.6 g/dL (14.0-18.0); Immature Granulocyte Absolute 0.03 K/mm3 (0.00-0.031); Immature Granulocyte Percent A 0.4 % (0-0.5); Lymphocytes Absolute Auto 1.89 K/mm3 (0.9-3.2); Lymphocytes Percent Auto 22.1 % (18.3-44.2); Mean Corpuscular HGB Conc 32.4 g/dl (32-36); Mean Corpuscular Hemoglobin 29.9 pg (26-34); Mean Corpuscular Volume 92.4 fl (80-100); Mean Platelet Volume 11.3 fl (7.4-10.4); Monocytes Percent Auto 11.9 % (2.6-8.5); Neutrophils Absolute Auto 5.2 K/mm3 (1.3-6.7); Neutrophils Percent Auto 61.3 % (45.5-73.1); Platelet Count Result 165 k/mm3 (150-375); Red Blood Count 4.21 M/mm3 (4.6-6.20); Red Cell Distribution Width 13.5 % (11.5-14.5); White Blood Count 8.6 K/mm3 (4.5-10.0)
[2023-03-21 22:28] LABS: Alanine Aminotransferase 23 U/L (6-50); Albumin Level 3.8 g/dL (3.5-5.1); Alkaline Phosphatase 64 U/L (38-126); Anion Gap 9 mmol/L (8-16); Aspartate Amino Transferase 31 U/L (17-59); Bilirubin,Total 0.5 mg/dL (0.2-1.3); Blood Urea Nitrogen 28 mg/dL (9-20); Carbon Dioxide 26 mmol/L (22-30); Chloride 105 mmol/L (98-107); Estimated CRCL calculation 38 ml/min; Estimated Glomerular Filt Rate 52; Glucose 134 mg/dL (65-110); Potassium 4.2 mmol/L (3.4-5.0); Sodium 140 mmol/L (137-145)
--- NOTE | 2023-03-21 23:11 | PC.NURSE ---
Report given to ESTHELA Montano. All questions addressed, care of pt transferred.
--- NOTE | 2023-03-21 23:27 | ED.FALL ---
HPI - Fall General Chief Complaint: Fall Stated Complaint: FALL Time Seen by Provider: 03/21/23 21:47 Source: patient and family Mode of arrival: EMS Limitations: dementia History of Present Illness HPI Narrative: Patient is an 83-year-old male, with past medical history of dementia, who presents to the ED via EMS with report of a fall. Patient is a resident of [facility]. Per penitentiary report, patient eloped from the facility today and was running down the street. He tripped and fell sustaining a large laceration to his nose and forehead. He was then brought here for further evaluation. C-collar placed prior to arrival. Patient unable to tell me how the fall occurred. Complains of pain to his face, right shoulder, right hip. Patient is not on any blood thinners. Tetanus status unknown. Related Data Home Medications Medication Instructions Recorded Confirmed aspirin 81 mg tablet,delayed 81 mg PO DAILY 05/25/19 11/08/22 release (Adult Aspirin Regimen) cinnamon bark 500 mg capsule 500 mg PO DAILY 11/24/19 11/08/22 (Cinnamon) multivitamin (Multiple Vitamins 1 tablet PO DAILY 11/24/19 11/08/22 tablet) vitamin B complex (Super B-50 1 cap PO DAILY 11/24/19 11/08/22 Complex capsule) melatonin 5 mg capsule 5 mg PO .qhs PRN Insomnia 06/18/20 11/08/22 acetaminophen 650 mg 650 mg PO QID PRN Pain 08/29/22 11/08/22 tablet,extended release (Arthritis Pain Relief (acetaminophen) ER) loratadine 10 mg tablet 10 mg PO DAILY PRN Allergy Symptoms 08/29/22 11/08/22 polyethylene glycol 3350 17 17 g PO DAILY PRN Constipation 08/29/22 11/08/22 gram/dose oral powder sodium chloride 0.65 % nasal spray 4 spray intranasal QID PRN Dry 08/29/22 11/08/22 aerosol (Saline Nasal) Nasal Passages Calcium 600/Vit D 800 1 tab-cap PO DAILY 09/02/22 11/08/22 omega-3 fatty acids-vitamin E 1 cap PO DAILY 11/08/22 11/08/22 1,000 mg capsule tamsulosin 0.4 mg capsule 0.4 mg PO DAILY 11/08/22 11/08/22 Allergies Allergy/AdvReac Type Severity Reaction Status Date / Time primidone [From Mysoline] AdvReac Severe Dizziness Verified 09/10/22 14:42 Review of Systems Review of Systems: CONSTITUTIONAL: Denies fever, chills, or sweats. CARDIOVASCULAR: Denies chest pain. RESPIRATORY: Denies dyspnea. GASTROINTESTINAL: Denies abdominal pain, nausea, vomiting. SKIN: See HPI. MUSCULOSKELETAL: See HPI. NEUROLOGIC: See HPI. All systems reviewed & are unremarkable except as noted in HPI and below PMFSH Past Medical History Medical History Benign prostatic hyperplasia Dementia Gastroesophageal reflux disease Hyperlipemia Hypertension Surgical History Surgical History History of removal of skin mole Family History Family History Mother Family history of respiratory disorder, Onset Age: 56 Patient's mother is Father Cerebrovascular accident, Onset Age: 89 Patient's father is Sibling Family history of heart disease in male family member before age 55, Onset Age: 79 Patient's brother is Other Hypertension Social History Social History Smoking status: Never smoker Alcohol intake: never Substance use: never Substance use type: does not use Lack of Transportation: No Lack of Food: Never True Current Housing: I Have Housing Concerned About Future Housing: No Difficulty Paying Gas/Electric Bills: No Difficulty Paying for Meds: No Currently Unemployed: No Education: Trade/Vocational Certificate Difficulty w/ Childcare or Family Care: No Living arrangements: assisted living Spiritual care concerns: No Exam Narrative: GENERAL: Elderly, well-nourished, non-toxic, in no
[2023-03-22] MEDS: TETANUS,DIPHTHERIA,AC PERTUSSIS ADULT (0.5 ML) BOOSTRIX IM (01:13)
[2023-03-22] MEDS: ACETAMINOPHEN 325 MG TABLET 650 MG PO (01:38)
[2023-03-22] MEDS: CEPHALEXIN 500 MG CAPSULE PO (01:38)
[2023-03-22 02:27] VITALS: BP 174/70; PULSE 56; RESP 18; O2SAT 99
== END 2023-03-22 01:45 ==
PROVIDERS: Emergency Provider Physician Assistant; PCP Family Medicine
DX: S01.81XA Laceration without foreign body of other part of head, initial encounter (principal); S02.2XXA Fracture of nasal bones, initial encounter for closed fracture; S20.311A Abrasion of right front wall of thorax, initial encounter; S60.417A Abrasion of left little finger, initial encounter; S60.414A Abrasion of right ring finger, initial encounter; S60.512A Abrasion of left hand, initial encounter; S60.511A Abrasion of right hand, initial encounter; F03.90 Unspecified dementia, unspecified severity, without behavioral disturbance, psychotic disturbance, mood disturbance, and anxiety; Z23 Encounter for immunization; E78.5 Hyperlipidemia, unspecified; I10 Essential (primary) hypertension; N40.0 Benign prostatic hyperplasia without lower urinary tract symptoms; K21.9 Gastro-esophageal reflux disease without esophagitis; Z79.82 Long term (current) use of aspirin; M19.042 Primary osteoarthritis, left hand; M19.041 Primary osteoarthritis, right hand; M19.031 Primary osteoarthritis, right wrist; M19.021 Primary osteoarthritis, right elbow; M19.011 Primary osteoarthritis, right shoulder; M16.0 Bilateral primary osteoarthritis of hip; M47.812 Spondylosis without myelopathy or radiculopathy, cervical region; R00.1 Bradycardia, unspecified; W01.0XXA Fall on same level from slipping, tripping and stumbling without subsequent striking against object, initial encounter
CPT/HCPCS: 12013; 36415; 70450; 70486; 72125; 73060; 73130; 73521; 80053; 85025; 90471; 90715; 93005; 99284; A9270; L0140

== ENCOUNTER 2023-05-18 02:01 | Emergency (ER) | payer MEDICARE, SELFPAY ==
[2023-05-18] VITALS (20 sets, daily range): BP systolic 141–169; BP diastolic 57–139; PULSE 46–60; RESP 11–20; TEMP 36.8; O2SAT 93–98
--- NOTE | ~2023-05-18 | CT_ITS ---
Noncontrast CT scan of the cervical spine Technique: Multiple contiguous axial [address] images of the cervical spine were obtained and rec onstructed in 2D sagittal and coronal planes on the acquisition scanner. Dose reduction technique was used on this scan by utilizing automated exposure control, adjustment of the mA and/or kV according to patient size. The dose-length product (DLP) was 324.89 mGy-cm. Clinical History: Pain Findings: No fractures or dislocations. There is fusion of the right C3-C4 and C4-C5 facet joints, a nd fusion of the left C4-C5 facet joint, probable partial fusion of the left C3-C4 facet joint. There is moderate degenerative disc narrowing throughout the cervical spine, sparing C2-C3. There are exte nsive anterior osteophytes from C4 through C7. There is degenerative change at the articulation of th e odontoid process with the anterior arch of C1. There is probable right neural foraminal narrowing a t C2-C3 with facet arthropathy and disc osteophyte complex. There is right neural foraminal narrowing at C3-C4 with probable right facet arthropathy, and mild left facet arthropathy. There is probable b ilateral neural foraminal narrowing at C5-C6 and C6-C7. No prevertebral soft tissue swelling. Impression: No fracture or subluxation of the cervical spine. Extensive degenerative spondylosis, as above. Reviewed, dictated and finalized at [facility]. NER Impression: No fracture or subluxation of the cervical spine. Extensive degenerative spondylosis, as above.
--- NOTE | ~2023-05-18 | CT_ITS ---
CT head without contrast Indication: Head injury COMPARISON: 03/21/2023 Technique: Serial scans were obtained through the brain without the administration of contrast. Dose reduction technique was used on this scan by utilizing automated exposure control and iterative recon struction technique. The dose-length product (DLP) was 605.33 mGy-cm. Findings: There is no evidence of intracranial hemorrhage, mass lesion, or acute infarct. The ventri cles and subarachnoid spaces are dilated, consistent with moderate atrophy. Low attenuation regions are seen within the periventricular white matter bilaterally, likely representing changes from chroni c microvascular ischemic disease. There is no evidence of edema, mass effect or midline shift. The visualized paranasal sinuses and mastoid air cells are clear. Impression: No intracranial hemorrhage, mass, or acute infarct. Atrophy and chronic white matter changes, as above. Reviewed, dictated and finalized at [facility]. [employer] Impression: No intracranial hemorrhage, mass, or acute infarct. Atrophy and chronic white matter changes, as above.
--- NOTE | 2023-05-18 03:56 | ED.GENADULT ---
HPI - General Adult General Chief complaint: Fall Stated complaint: FALL, LAC TO HEAD Time Seen by Provider: 05/18/23 03:16 History of Present Illness HPI narrative: Patient 83-year-old gentleman who presents emergency department chief complaint of fall. Patient is resident of [place] and had a ground level fall was unwitnessed. Patient is at baseline a and O x1 due to dementia. In facility reported there was a small laceration on his scalp Related Data Home Medications Medication Instructions Recorded Confirmed aspirin 81 mg tablet,delayed 81 mg PO DAILY 05/25/19 11/08/22 release (Adult Aspirin Regimen) cinnamon bark 500 mg capsule 500 mg PO DAILY 11/24/19 11/08/22 (Cinnamon) multivitamin (Multiple Vitamins 1 tablet PO DAILY 11/24/19 11/08/22 tablet) vitamin B complex (Super B-50 1 cap PO DAILY 11/24/19 11/08/22 Complex capsule) melatonin 5 mg capsule 5 mg PO .qhs PRN Insomnia 06/18/20 11/08/22 acetaminophen 650 mg 650 mg PO QID PRN Pain 08/29/22 11/08/22 tablet,extended release (Arthritis Pain Relief (acetaminophen) ER) loratadine 10 mg tablet 10 mg PO DAILY PRN Allergy Symptoms 08/29/22 11/08/22 polyethylene glycol 3350 17 17 g PO DAILY PRN Constipation 08/29/22 11/08/22 gram/dose oral powder sodium chloride 0.65 % nasal spray 4 spray intranasal QID PRN Dry 08/29/22 11/08/22 aerosol (Saline Nasal) Nasal Passages Calcium 600/Vit D 800 1 tab-cap PO DAILY 09/02/22 11/08/22 omega-3 fatty acids-vitamin E 1 cap PO DAILY 11/08/22 11/08/22 1,000 mg capsule tamsulosin 0.4 mg capsule 0.4 mg PO DAILY 11/08/22 11/08/22 Allergies Allergy/AdvReac Type Severity Reaction Status Date / Time primidone [From Mysoline] AdvReac Severe Dizziness Verified 09/10/22 14:42 Review of Systems Review of Systems: A 10 system review of systems was completed on the patient and is negative except for what is stated in the HPI. Nursing and ancillary documentation was reviewed. [facility] Past Medical History Medical History Benign prostatic hyperplasia Dementia Gastroesophageal reflux disease Hyperlipemia Hypertension Surgical History Surgical History History of removal of skin mole Family History Family History Mother Family history of respiratory disorder, Onset Age: 56 Patient's mother is Father Cerebrovascular accident, Onset Age: 89 Patient's father is Sibling Family history of heart disease in male family member before age 55, Onset Age: 79 Patient's brother is Other Hypertension Social History Social History Smoking status: Never smoker Alcohol intake: never Substance use: never Substance use type: does not use Lack of Transportation: No Lack of Food: Never True Current Housing: I Have Housing Concerned About Future Housing: No Difficulty Paying Gas/Electric Bills: No Difficulty Paying for Meds: No Currently Unemployed: No Education: Trade/Vocational Certificate Difficulty w/ Childcare or Family Care: No Living arrangements: assisted living Spiritual care concerns: No Exam Narrative: GENERAL: Well-appearing, well-nourished, and in no acute distress. HEAD: Normocephalic, 2 cm laceration of scalp. EYES: PERRLA and EOMI. ENT: Nares clear, no rhinorrhea or epistaxis. Mucous membranes moist. NECK: Supple. CHEST: Clear to auscultation. No respiratory distress. HEART: Regular rate and rhythm. No murmur heard. Normal peripheral pulses. ABDOMEN: Soft, nontender, nondistended, normal active bowel sounds. EXTREMITIES: Normal range of motion. No edema. SKIN: Warm, dry, no rash. NEURO: No focal deficits. Alert and oriented x1. PSYCH: Normal mood an
== END 2023-05-18 05:10 ==
PROVIDERS: Emergency Provider Emergency Medicine; PCP Family Medicine
DX: S01.01XA Laceration without foreign body of scalp, initial encounter (principal); F03.90 Unspecified dementia, unspecified severity, without behavioral disturbance, psychotic disturbance, mood disturbance, and anxiety; E78.5 Hyperlipidemia, unspecified; I10 Essential (primary) hypertension; N40.0 Benign prostatic hyperplasia without lower urinary tract symptoms; K21.9 Gastro-esophageal reflux disease without esophagitis; W18.30XA Fall on same level, unspecified, initial encounter
CPT/HCPCS: 12001; 70450; 72125; 99284

== ENCOUNTER 2023-07-31 11:27 | Emergency (ER) | payer MEDICARE, SELFPAY ==
--- NOTE | ~2023-07-31 | XR_ITS ---
EXAMINATION: XR chest 1V portable INDICATION: Lower limb swelling TECHNIQUE: Portable AP chest at 1445 hours COMPARISON: 11/08/2022 FINDINGS: The lungs are free of acute opacities. No pleural effusion or pneumothorax. The cardiomedia stinal silhouette is normal. IMPRESSION: 1. No acute cardiopulmonary abnormality. Reviewed, dictated and finalized at location [facility].
[2023-07-31 11:44] VITALS: BP 156/90; PULSE 47; RESP 18; TEMP 36.2; O2SAT 98
[2023-07-31 12:07] VITALS: RESP 16
--- NOTE | 2023-07-31 14:25 | ED.RECABL ---
HPI - Recheck/Abnormal Lab/Rx General Chief Complaint: Recheck/Abnormal Lab/Rx Stated Complaint: BLE swelling Time Seen by Provider: 07/31/23 12:57 History of Present Illness HPI narrative: 83-year-old male with a history of dementia, hypertension, hyperlipidemia presenting with leg swelling. Patient's family is at bedside and helps with the history. States that his memory care facility noticed that his legs looked swollen today. The swelling has gone down now that he has been lying flat and he took off his socks. States that they also looked swollen over the weekend. Patient denies any complaints. No chest pain, shortness of breath, lightheadedness, orthopnea. He denies any complaints currently. Related Data Home Medications Medication Instructions Recorded Confirmed aspirin 81 mg tablet,delayed 81 mg PO DAILY 05/25/19 11/08/22 release (Adult Aspirin Regimen) cinnamon bark 500 mg capsule 500 mg PO DAILY 11/24/19 11/08/22 (Cinnamon) multivitamin (Multiple Vitamins 1 tablet PO DAILY 11/24/19 11/08/22 tablet) vitamin B complex (Super B-50 1 cap PO DAILY 11/24/19 11/08/22 Complex capsule) melatonin 5 mg capsule 5 mg PO .qhs PRN Insomnia 06/18/20 11/08/22 acetaminophen 650 mg 650 mg PO QID PRN Pain 08/29/22 11/08/22 tablet,extended release (Arthritis Pain Relief (acetaminophen) ER) loratadine 10 mg tablet 10 mg PO DAILY PRN Allergy Symptoms 08/29/22 11/08/22 polyethylene glycol 3350 17 17 g PO DAILY PRN Constipation 08/29/22 11/08/22 gram/dose oral powder sodium chloride 0.65 % nasal spray 4 spray intranasal QID PRN Dry 08/29/22 11/08/22 aerosol (Saline Nasal) Nasal Passages Calcium 600/Vit D 800 1 tab-cap PO DAILY 09/02/22 11/08/22 omega-3 fatty acids-vitamin E 1 cap PO DAILY 11/08/22 11/08/22 1,000 mg capsule tamsulosin 0.4 mg capsule 0.4 mg PO DAILY 11/08/22 11/08/22 Allergies Allergy/AdvReac Type Severity Reaction Status Date / Time primidone [From Mysoline] AdvReac Severe Dizziness Verified 05/03/23 14:42 Review of Systems Review of Systems: ROS unobtainable: Yes unobtainable due to mental status and other ( Underlying dementia) [facility] Past Medical History Medical History Benign prostatic hyperplasia Dementia Gastroesophageal reflux disease Hyperlipemia Hypertension Surgical History Surgical History History of removal of skin mole Family History Family History Mother Family history of respiratory disorder, Onset Age: 56 Patient's mother is Father Cerebrovascular accident, Onset Age: 89 Patient's father is Sibling Family history of heart disease in male family member before age 55, Onset Age: 79 Patient's brother is Other Hypertension Social History Social History Smoking status: Never smoker Alcohol intake: never Substance use: never Substance use type: does not use Lack of Transportation: No Lack of Food: Never True Current Housing: I Have Housing Concerned About Future Housing: No Difficulty Paying Gas/Electric Bills: No Difficulty Paying for Meds: No Currently Unemployed: No Education: Trade/Vocational Certificate Difficulty w/ Childcare or Family Care: No Living arrangements: assisted living Spiritual care concerns: No Exam Narrative: GENERAL: elderly male lying in bed in no acute distress HEAD: Normocephalic, atraumatic. EYES: PERRLA and EOMI. ENT: grossly unremarkable NECK: Supple. CHEST: Clear to auscultation. No respiratory distress. HEART: Regular rate and rhythm. ABDOMEN: Soft, nontender, nondistended EXTREMITIES: Normal range of motion. 1+ pitting edema to just above ankles bilaterally SKIN: Warm, dry, no rash. NE
--- NOTE | 2023-07-31 14:26 | ECG_ITS ---
Measurements Intervals [place] Rate: 43 P: 30 [place]: 201 QRS: -15 QRSD: 89 T: 12 QT: 435 QTc: 371 Interpretive Statements SINUS BRADYCARDIA WITH SINUS ARRHYTHMIA DELAYED PRECORDIAL R/S TRANSITION LEFT VENTRICULAR HYPERTROPHY BASELINE ARTIFACT- I, II, AVR, AVF, V1-V6 ABNORMAL ECG COMPARED TO ECG 03/21/2023 21:40:58 NO SIGNIFICANT CHANGES Electronically Signed On 07-31-2023 15:06:04 CDT by Pj Nolasco D.O.
[2023-07-31 14:41] VITALS: BP 173/75; O2SAT 91
[2023-07-31 14:46] VITALS: BP 170/62; O2SAT 97
[2023-07-31 14:57] LABS: Basophils Absolute Auto 0.1 K/mm3 (0.0-0.1); Basophils Percent Auto 0.7 % (0.2-1.2); Eosinophils Absolute Auto 0.4 K/mm3 (0-0.3); Eosinophils Percent Auto 4.8 % (0-4.4); Hematocrit 38.1 % (42.0-52.0); Hemoglobin 12.8 g/dL (14.0-18.0); Immature Granulocyte Absolute 0.03 K/mm3 (0.00-0.031); Immature Granulocyte Percent A 0.4 % (0-0.5); Lymphocytes Absolute Auto 2.01 K/mm3 (0.9-3.2); Lymphocytes Percent Auto 27.5 % (18.3-44.2); Mean Corpuscular HGB Conc 33.6 g/dl (32-36); Mean Corpuscular Volume 89.4 fl (80-100); Mean Platelet Volume 11.3 fl (7.4-10.4); Monocytes Absolute Auto 0.8 K/mm3 (0.1-0.6); Monocytes Percent Auto 11.3 % (2.6-8.5); Neutrophils Absolute Auto 4.1 K/mm3 (1.3-6.7); Neutrophils Percent Auto 55.3 % (45.5-73.1); Platelet Count Result 164 k/mm3 (150-375); Red Blood Count 4.26 M/mm3 (4.6-6.20); White Blood Count 7.3 K/mm3 (4.5-10.0)
[2023-07-31 15:01] VITALS: BP 158/72; O2SAT 96
--- NOTE | 2023-07-31 15:07 | PC.NURSE ---
1430 Spoke with Elio from [place] and gave an update on pts current status.
[2023-07-31 15:15] LABS: Partial Thromboplastin Time 31.1 Seconds (22.3-36.8)
[2023-07-31 15:16] VITALS: BP 174/64; O2SAT 98
[2023-07-31 15:18] LABS: Alanine Aminotransferase 17 U/L (6-50); Albumin Level 3.7 g/dL (3.5-5.1); Alkaline Phosphatase 70 U/L (38-126); Anion Gap 3 mmol/L (8-16); Aspartate Amino Transferase 26 U/L (17-59); Bilirubin,Total 0.5 mg/dL (0.2-1.3); Blood Urea Nitrogen 23 mg/dL (9-20); Calcium 9.2 mg/dL (8.4-10.2); Carbon Dioxide 27 mmol/L (22-30); Chloride 109 mmol/L (98-107); Estimated CRCL calculation 39 ml/min; Estimated Glomerular Filt Rate 58; Glucose 95 mg/dL (65-110); Potassium 4.3 mmol/L (3.4-5.0); Sodium 139 mmol/L (137-145)
[2023-07-31 15:39] LABS: NT Pro B Type Natriuretic Pept 170 pg/mL (19.9-100); Troponin I < 0.012 ng/mL (0.000-0.034)
== END 2023-07-31 17:37 | disposition home or self-care (01) ==
PROVIDERS: Emergency Provider Emergency Medicine; PCP Family Medicine
DX: R22.43 Localized swelling, mass and lump, lower limb, bilateral (principal); F03.90 Unspecified dementia, unspecified severity, without behavioral disturbance, psychotic disturbance, mood disturbance, and anxiety; I10 Essential (primary) hypertension; E78.5 Hyperlipidemia, unspecified; N40.0 Benign prostatic hyperplasia without lower urinary tract symptoms; K21.9 Gastro-esophageal reflux disease without esophagitis; Z79.82 Long term (current) use of aspirin; R00.1 Bradycardia, unspecified; I51.7 Cardiomegaly
CPT/HCPCS: 36415; 71045; 80053; 83880; 84484; 85025; 85610; 85730; 93005; 99284

== ENCOUNTER 2023-11-04 10:19 | Emergency (ER) | payer MEDICARE, SELFPAY ==
[2023-11-04 10:18] VITALS: BP 152/63; PULSE 38; RESP 17; TEMP 36.4; O2SAT 100
--- NOTE | 2023-11-04 10:22 | ECG_ITS ---
Test Date: 2023-11-04 10:21:49 Measurements Intervals [place] Rate: 37 P: 23 IN: 203 QRS: -5 QRSD: 89 T: 24 QT: 492 QTc: 387 Interpretive Statements SINUS BRADYCARDIA MODERATE VOLTAGE CRITERIA FOR LVH, CONSIDER NORMAL VARIANT [MEETS CRITERIA IN ONE OF: R(aVL), S(V1), R(V5), R(V5/V6)+S(V1)] No previous ECG available for comparison Electronically Signed On 11-04-2023 11:56:07 CDT by Eris Vazquez M.D.
[2023-11-04 10:25] VITALS: PULSE 36
--- NOTE | 2023-11-04 10:36 | ED.ARRPALP ---
HPI - Arrhythmia/Palpitations General Chief Complaint: Arrhythmia/Palpitations Stated Complaint: low heart rate Time Seen by Provider: 11/04/23 10:31 History of Present Illness HPI narrative: Pt sent in for evaluation of bradycardia from [place]. Pt has no complaints currently and has not fallen. Pt denies CP or SOB. Pt is on propanolol. Pt is not hypotensive. Pt is his normal alert and oriented x 1. Related Data Home Medications Medication Instructions Recorded Confirmed aspirin 81 mg tablet,delayed 81 mg PO DAILY 05/25/19 11/08/22 release (Adult Aspirin Regimen) cinnamon bark 500 mg capsule 500 mg PO DAILY 11/24/19 11/08/22 (Cinnamon) multivitamin (Multiple Vitamins 1 tablet PO DAILY 11/24/19 11/08/22 tablet) vitamin B complex (Super B-50 1 cap PO DAILY 11/24/19 11/08/22 Complex capsule) melatonin 5 mg capsule 5 mg PO .qhs PRN Insomnia 06/18/20 11/08/22 acetaminophen 650 mg 650 mg PO QID PRN Pain 08/29/22 11/08/22 tablet,extended release (Arthritis Pain Relief (acetaminophen) ER) loratadine 10 mg tablet 10 mg PO DAILY PRN Allergy Symptoms 08/29/22 11/08/22 polyethylene glycol 3350 17 17 g PO DAILY PRN Constipation 08/29/22 11/08/22 gram/dose oral powder sodium chloride 0.65 % nasal spray 4 spray intranasal QID PRN Dry 08/29/22 11/08/22 aerosol (Saline Nasal) Nasal Passages Calcium 600/Vit D 800 1 tab-cap PO DAILY 09/02/22 11/08/22 omega-3 fatty acids-vitamin E 1 cap PO DAILY 11/08/22 11/08/22 1,000 mg capsule tamsulosin 0.4 mg capsule 0.4 mg PO DAILY 11/08/22 11/08/22 Allergies Allergy/AdvReac Type Severity Reaction Status Date / Time primidone [From Mysoline] AdvReac Severe Dizziness Verified 09/10/22 14:42 Review of Systems Review of Systems: ROS unobtainable: Yes unobtainable due to mental status PMFSH Past Medical History Medical History Benign prostatic hyperplasia Dementia Gastroesophageal reflux disease Hyperlipemia Hypertension Surgical History Surgical History History of removal of skin mole Family History Family History Mother Family history of respiratory disorder, Onset Age: 56 Patient's mother is Father Cerebrovascular accident, Onset Age: 89 Patient's father is Sibling Family history of heart disease in male family member before age 55, Onset Age: 79 Patient's brother is Other Hypertension Social History Social History Smoking status: Never smoker Alcohol intake: never Substance use: never Substance use type: does not use Lack of Transportation: No Lack of Food: Never True Current Housing: I Have Housing Concerned About Future Housing: No Difficulty Paying Gas/Electric Bills: No Difficulty Paying for Meds: No Currently Unemployed: No Education: Trade/Vocational Certificate Difficulty w/ Childcare or Family Care: No Living arrangements: assisted living Spiritual care concerns: No Exam Const: General: healthy appearing and no acute distress Nutritional Appearance: well nourished Orientation/consciousness: patient oriented x3 Limitations: other limitations (dementia) HENMT: Head: normal to inspection Eyes: EOM: EOMs intact bilaterally Neck: Neck: normal visual inspection Chest: Chest palpation & inspection: normal inspection of the chest Resp: Effort & Inspection: normal respiratory effort Auscultation: clear to auscultation bilaterally Cardio: Rate: bradycardic Rhythm: regular rhythm GI: Auscultation: normal bowel sounds Skin: General skin exam: normal color Rashes: no rashes Wounds: no wounds Neuro: General: moves all extremities, no meningeal signs and no focal motor deficits Extrem: General: normal to in
[2023-11-04 10:45] LABS: Basophils Absolute Auto 0.1 K/mm3 (0.0-0.1); Basophils Percent Auto 0.8 % (0.2-1.2); Eosinophils Absolute Auto 0.4 K/mm3 (0-0.3); Hematocrit 40.4 % (42.0-52.0); Hemoglobin 13.3 g/dL (14.0-18.0); Immature Granulocyte Absolute 0.02 K/mm3 (0.00-0.031); Immature Granulocyte Percent A 0.2 % (0-0.5); Lymphocytes Absolute Auto 2.18 K/mm3 (0.9-3.2); Lymphocytes Percent Auto 24.1 % (18.3-44.2); Mean Corpuscular HGB Conc 32.9 g/dl (32-36); Mean Corpuscular Hemoglobin 30.4 pg (26-34); Mean Corpuscular Volume 92.4 fl (80-100); Mean Platelet Volume 11.1 fl (7.4-10.4); Monocytes Absolute Auto 0.7 K/mm3 (0.1-0.6); Neutrophils Absolute Auto 5.7 K/mm3 (1.3-6.7); Neutrophils Percent Auto 62.9 % (45.5-73.1); Platelet Count Result 196 k/mm3 (150-375); Red Blood Count 4.37 M/mm3 (4.6-6.20); Red Cell Distribution Width 14.3 % (11.5-14.5); White Blood Count 9.1 K/mm3 (4.5-10.0)
[2023-11-04 10:55] LABS: INR 1.1; Prothrombin Time 14.9 Seconds (11.1-14.7)
[2023-11-04 11:11] LABS: NT Pro B Type Natriuretic Pept 176 pg/mL (19.9-100); Troponin I < 0.012 ng/mL (0.000-0.034)
[2023-11-04 12:22] LABS: Alanine Aminotransferase 28 U/L (6-50); Albumin Level 3.9 g/dL (3.5-5.1); Alkaline Phosphatase 70 U/L (38-126); Anion Gap 8 mmol/L (4-12); Aspartate Amino Transferase 30 U/L (17-59); Bilirubin,Total 0.6 mg/dL (0.2-1.3); Blood Urea Nitrogen 26 mg/dL (9-20); Calcium 8.8 mg/dL (8.4-10.2); Carbon Dioxide 25 mmol/L (22-30); Chloride 110 mmol/L (98-107); Estimated CRCL calculation 35 ml/min; Estimated Glomerular Filt Rate 48; Glucose 120 mg/dL (65-110); Potassium 4.3 mmol/L (3.4-5.0); Sodium 143 mmol/L (137-145)
[2023-11-04 12:32] VITALS: BP 152/52; PULSE 39; RESP 12
[2023-11-04 13:02] VITALS: BP 159/56; PULSE 44; RESP 12; O2SAT 99
== END 2023-11-04 14:19 ==
PROVIDERS: Emergency Provider Emergency Medicine; PCP Family Medicine
DX: R00.1 Bradycardia, unspecified (principal); F03.90 Unspecified dementia, unspecified severity, without behavioral disturbance, psychotic disturbance, mood disturbance, and anxiety; I10 Essential (primary) hypertension; E78.5 Hyperlipidemia, unspecified; N40.0 Benign prostatic hyperplasia without lower urinary tract symptoms; K21.9 Gastro-esophageal reflux disease without esophagitis; Z79.899 Other long term (current) drug therapy; Z79.82 Long term (current) use of aspirin
CPT/HCPCS: 36415; 80053; 83880; 84484; 85025; 85610; 85730; 93005; 99284

== ENCOUNTER 2024-06-26 03:40 | Observation (INO) | payer MEDICARE, SELFPAY ==
--- NOTE | ~2024-06-26 | XR_ITS ---
CHEST RADIOGRAPH CLINICAL HISTORY: Fevers . COMPARISON: 07/31/2023 TECHNIQUE: Single portable view of the chest. FINDINGS The cardiomediastinal silhouette is enlarged, unchanged. Elevation of the right hemidiaphragm with adjacent compressive atelectasis. Remainder of the lungs are clear. IMPRESSION: No focal infiltrate or effusion. Reviewed, dictated and finalized at location A. ERCIAL OR INSTITUTIONAL CLEANER
--- NOTE | ~2024-06-26 | CT_ITS ---
History: Altered mental status PROCEDURE: CT head without contrast. COMPARISON: 05/18/2023 TECHNIQUE: Axial imaging of the head performed from the skull base to the vertex without IV contrast. Sagittal a nd coronal reformations obtained. DLP: 681 mGy-cm FINDINGS: The ventricles are enlarged. The dilatation of the ventricles is proportional to the degree of sulcal prominence, not uncommon in the senescent brain. Decreased attenuation is identified within the periventricular white matter, likely secondary to micr ovascular ischemic disease, in a patient of this age. There is no mass, mass effect or midline shift. There is no abnormal extra-axial fluid collection or intracranial hemorrhage. Visualized paranasal sinuses are clear. The mastoid air cells are well aerated. No acute displaced fractures within the overlying cranium. Impression: No acute intracranial hemorrhage or suspicious mass effect. Reviewed, dictated and finalized at location A. RVISOR SHEARING Impression: No acute intracranial hemorrhage or suspicious mass effect.
[2024-06-26 03:41] VITALS: BP 116/64; PULSE 66; RESP 17; TEMP 36.6; O2SAT 95
--- OUTSIDE RECORDS SUMMARY | 2024-06-26 03:43 | XMS_ITS | Clinical Summary ---
Author Organization [facility] Address [address] [place] [address] Care Team Providers Care Spinning Frame Tender Name Role Phone Willi Leiva MD Primary Care Provider [phone] Allergies Active Allergy Reactions Criticality Noted Date Comments Primidone Dizziness High 04/15/2024 Medications pravastatin (PRAVACHOL) 20 MG tablet Take 1 tablet (20 mg total) by mouth daily. Active QUEtiapine (SEROQUEL) 25 MG tablet Take 1 tablet (25 mg total) by mouth nightly at bedtime. Active tamsulosin (FLOMAX) 0.4 MG CapIndications:B enign Prostatic Hypertrophy Take 1 capsule (0.4 mg total) by mouth daily. Indications: Benign Enlargement of Prostate Active finasteride (PROSCAR) 5 MG tablet Take 1 tablet (5 mg total) by mouth daily. Active donepezil (ARICEPT) 5 MG TabIndications:D ementia Take 1 tablet (5 mg total) by mouth nightly at bedtime. 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 Indications: Trouble Sleeping Active aspirin EC (ECOTRIN) 81 MG tablet Take 1 tablet (81 mg total) by mouth daily. Active melatonin 5 MG tablet Take 1 tablet (5 mg total) by mouth nightly as needed. Active B complex-C Cap capsule Take 1 capsule by mouth daily. Active polyethylene glycol (GLYCOLAX) 17 GM/SCOOP powder Take 17 g by mouth as needed (Constipation). 4 Active B Flrhqwu-S-Rrhlm Acid Tab Take 1 tablet by mouth daily. 4 Active Calcium Carbonate-Vitami n D (CALCIUM 600 + D OR) Take 1 tablet by mouth daily. 4 Active Active Problems Problem Noted Date Diagnosed Date Sepsis ([facility]) 04/15/2024 Encounters Date Type Department Care Team Description 04/27/2024 11:23 AM WHEEL TUNER - 04/27/2024 3:06 PM WHEEL TUNER Emergency [facility] [place] [address] Tab Gonzalez PA-C Urinary Symptoms; Blood In Urine Discharge Disposition: Home or Self Care (Routine Discharge) 04/27/2024 Travel 04/15/2024 2:14 AM WHEEL TUNER - 04/19/2024 4:16 PM WHEEL TUNER Hospital Encounter [facility] Med/Surg [address] [place] [address] Chris Gilmore MD,PHD Desiree Cannon MD Doan, Melissa K, PA Duenas, Vincent J, MD Urinary Symptoms Discharge Disposition: [facility] Facility 04/15/2024 Travel 04/14/2024 9:27 PM WHEEL TUNER - 04/15/2024 2:14 AM WHEEL TUNER Hospital Encounter [facility] [place] [address] Chris Gilmore MD,PHD Desiree Cannon MD Non-Staff, Provider Urinary Symptoms Discharge Disposition: Still a Patient 04/14/2024 Travel from Last 3 Months Family History Medical History Relation Comments Heart Attack Brother Stroke Father Relation Status Comments Brother Father Social History Tobacco Use Types Packs/Day Years Used Date Smoking Tobacco: Never Smokeless Tobacco: Never Tobacco Cessation:Counseling Given: No Alcohol Use Standard Drinks/Week Comments Never 0 (1 standard drink = 0.6 oz pur e alcohol) [facility] Utilities Answer Date Recorded In the past 12 months has th e electric, gas, oil, or water [employer] threatened to shut off services in your home? No 04/15/2024 Humiliation, Afraid, Rape, and Kick questionnair e Answer Date Recorded Within the last year, have y ou been afraid of your partner or ex-partner? No 04/15/2024 Within the last year, have y ou been humiliated or emotionally abused in other ways by your partner or ex-partner? No Within the last year, have y ou been kicked, hit, slapped, or otherwise physically hurt by your partner or ex-partner? No 04/15/2024 Within the last year, have y ou been raped or forced to have any kind of sexual activity by your partner or ex-partner? No 04/15/2024 Overall Financial Resource Strain (CARDIA) Answe r Date Recorded How hard is it for you to pa y for the very basics like food, housing, medical care, and heating? Not hard at all 04/15/2024 Hunger Vital Sign Answer Date Recorded Within the past 12 months, y ou worried that your food would run out before you got the money to buy more. Never true 04/15/20 24 Within the past 12 months, t he food you bought just didn't last and you didn't have money to get more. Never true 04/15/2024 PRAPARE - Transportation Answer Date Re corded In the past 12 months, has l ack of transportation kept you from medical appointments or from getting medications? No 10/2023 In the past 12 months, has l ack of transportation kept you from meetings, work, or from getting things needed for daily living? No 04/15/2024 Housing Stability Vital Sign Answer Weston e Recorded In the last 12 months, was t here a time when you were not able to pay the mortgage or rent on time? No 04/15/2024 In the past 12 months, how m any times have you moved where you were living? 0 04/15/2024 At any time in the past 12 m [facility], were you homeless or living in a senior care (including now)? No 04/15/2024 Sex and Gender Information Value Date Recorded Sex Assigned at Not on file Legal Sex Male 1:53 AM WHEEL TUNER Gender Identity Not on file Sexual Orientation Not on file Last Filed Vital Signs Vital Sign Reading Time Taken Comments Blood Pressure 162/93 04/27/2024 2:01 PM WHEEL TUNER Pulse 60 04/27/2024 2:21 PM WHEEL TUNER Temperature 36.6 C (97.9 F) 04/27/2024 11:03 AM WHEEL TUNER Respiratory Rate 17 04/27/2024 2:21 PM WHEEL TUNER Oxygen Saturation 92% 04/27/2024 2:21 PM WHEEL TUNER Inhaled Oxygen Concentration - - Weight 72.6 kg (160 lb 0.9 oz) 04/18/2024 6:03 A M WHEEL TUNER Height 172.7 cm (5' 8 ) 04/27/2024 11:03 AM WHEEL TUNER Body Mass Index 24.34 04/15/2024 4:44 AM WHEEL TUNER Plan of Treatment Health Maintenance Due Date Last Done Comments Annual Medicare Wellness Visit 2003 RSV Immunization or 60+ Years (1 - 1-dose 75+ series) 2013 COVID-19 Vaccine ( season) 2024 02/06/2021, 07/27/2020, 07/06/2020 Influenza Adult (#1) 2024 01/20/2022, 02/06/2021, 01/06/2020, Additional history exists DTaP, Tdap and Td Vaccines (4 - Td or Tdap) 03/22/2033 03/22/2023, 04/15/2016, 06/11/2015 Pneumococcal Vaccine: 65+ Years Completed 01/10/2020, 03/21/2018, 04/15/2016 Zoster Vaccines Completed 04/02/2020, 01/10, 02/21/2011 Meningococcal B Vaccine Aged Out No l onger eligible based on patient's age to complete this topic Meningococcal Vaccine Aged Out No ryan willy eligible based on patient's age to complete this topic RSV Immunizations Under 20 Months Aged Out No longer eligible based on patient's age to complete this topic Procedures Procedure Name Priority Date/Time Associated Diagnosis Comments URINE BACTERIA CULTURE STAT 11:36 AM WHEEL TUNER HC URINALYSIS AUTO W/O MICRO STAT 04/27/2024 11:36 AM WHEEL TUNER COMPREHENSIVE METABOLIC PANEL STAT 04/27/2024 11:36 AM WHEEL TUNER CBC W/DIFF AUTOMATED STAT 04/27/2024 11:36 AM WHEEL TUNER CBC W/DIFF AUTOMATED Routine 04/18/2024 5:55 AM WHEEL TUNER BASIC METABOLIC PANEL Routine 04/18/2024 5:55 AM WHEEL TUNER CBC W/DIFF AUTOMATED Routine 04/17/2024 5:00 AM WHEEL TUNER BASIC METABOLIC PANEL Routine 04/17/2024 5:00 AM WHEEL TUNER XR CHEST PORTABLE Today 04/16/2024 12: 00 PM WHEEL TUNER CBC W/DIFF AUTOMATED Routine 04/16/2024 5:49 AM WHEEL TUNER BASIC METABOLIC PANEL Routine 04/16/2024 5:49 AM WHEEL TUNER FOLIC ACID SERUM Routine 04/15/2024 9:13 AM WHEEL TUNER VITAMIN B-12 Routine 04/15/2024 9:13 AM WHEEL TUNER BASIC METABOLIC PANEL Routine 04/15/2024 9:13 AM WHEEL TUNER THYROID STIM HORMONE TSH Routine 04/15/2024 9:13 AM WHEEL TUNER HEMOGLOBIN, GLYCOSYLATED Routine 04/15/2024 9:13 AM WHEEL TUNER MAGNESIUM Routine 04/15/2024 9:13 AM WHEEL TUNER PROTHROMBIN TIME, VENOUS Routine 04/15/2024 9:13 AM WHEEL TUNER CBC W/DIFF AUTOMATED Routine 04/15/2024 9:[address] HEAD WO CON STAT 04/15/2024 2:21 AM WHEEL TUNER URINE BACTERIA CULTURE STAT 11:02 PM WHEEL TUNER HC URINALYSIS AUTO W/O MICRO STAT 04/14/2024 11:02 PM WHEEL TUNER PHOSPHORUS, INORGANIC PHOSPHATE STAT 04/14/2024 10:51 PM WHEEL TUNER MAGNESIUM STAT 04/14/2024 10:51 PM WHEEL TUNER THYROXINE, FREE (FT4) STAT 04/14/2024 10:51 PM WHEEL TUNER THYROID STIM HORMONE TSH STAT 04/14/2024 10:51 PM WHEEL TUNER LACTIC ACID W REFLEX (SEPSIS) STAT 04/14/2024 10:51 PM WHEEL TUNER COMPREHENSIVE METABOLIC PANEL STAT 04/14/2024 10:51 PM WHEEL TUNER CBC W/DIFF AUTOMATED STAT 04/14/2024 10:51 PM WHEEL TUNER INFLUENZA A & B STAT 04/14/2024 10:35 PM WHEEL TUNER CORONAVIRUS (COVID 19) STAT 10:35 PM WHEEL TUNER CULTURE, BACTERIA, BLOOD STAT 04/14/2024 10:34 PM WHEEL TUNER PROCALCITONIN (PCT) STAT 04/14/2024 1 0:34 PM WHEEL TUNER XR CHEST PORTABLE STAT 04/14/2024 10: 00 PM WHEEL TUNER from Last 3 Months Results * URINALYSIS (04/27/2024 11:36 AM WHEEL TUNER) Only the most recent of2 resultswithin the time period is included. SPECIMEN TYPE URINE CLEAN CATCH 04/27/2024 1:32 PM WHEEL TUNER [facility] COLOR (U) YELLOW 04/27/2024 1:46 PM WHEEL TUNER [facility] TRANSPARENCY CLEAR 04/27/2024 1:46 PM WHEEL TUNER [facility] SPECIFIC GRAVITY (U) 1.019 1.001 - 1.030 04/27/2024 1:46 PM WHEEL TUNER [facility] U PH 5.5 5.0 - 9.0 04/27/2024 1:46 PM WHEEL TUNER [facility] LEUKOCYTES (U) NEGATIVE NEGATIVE 04/27/2024 1:46 PM WHEEL TUNER [facility] NITRITES NEGATIVE NEGATIVE 04/27/2024 1:46 PM WHEEL TUNER [facility] PROTEIN RANDOM (U) 20 <30 MG/DL 04/27/2024 1:46 PM WHEEL TUNER [facility] GLUCOSE (U) NORMAL NORMAL MG/DL 04/27/2024 1:46 PM WHEEL TUNER [facility] KETONES MG/DL (U) NEGATIVE NEGATIVE MG/DL 04/27/2024 1:46 PM WHEEL TUNER [facility] UROBILINOGEN NORMAL NORMAL MG/DL 04/27/2024 1:46 PM WHEEL TUNER [facility] BILIRUBIN (U) NEGATIVE NEGATIVE MG/DL 04/27/2024 1:46 PM WHEEL TUNER [facility] BLOOD (U) NEGATIVE NEGATIVE 04/27/2024 1:46 PM [facility] URINE SPECIMEN OBTAINED BY CLEAN CATCH PROCEDURE / Unknown 04/27/2024 11:36 AM WHEEL TUNER us Joel Hardin [employer]PER[employer]OR URINE ORDERABLES Final Result [facility] [address] [place] [address], [place] [phone] * CULTURE URINE (04/27/2024 11:36 AM WHEEL TUNER) Only the most recent of2 resultswithin the time period is included. SPEC DESCRIPTION URINE CLEAN CATCH 04/27/2024 1:32 PM WHEEL TUNER [facility] SPECIAL REQUESTS NO SPECIAL REQUEST 04/27/2024 1:32 PM WHEEL TUNER [facility] CULTURE RESULT NO GROWTH 2 DAYS 04/29/2024 9:07 AM WHEEL TUNER [facility] URINE SPECIMEN OBTAINED BY CLEAN CATCH PROCEDURE / Unknown 04/27/2024 11:36 AM WHEEL TUNER 04/27/2024 1:34 PM WHEEL TUNER us Joel Hardin NP MICROBIOLOGY - GENERAL ORDERAB LES Final Result [facility] [address] [place] [address], * (ABNORMAL) COMPREHENSIVE METABOLIC PANEL (04/27/2024 11:36 AM WHEEL TUNER) Only the most recent of2 resultswithin the time period is included. GLUCOSE 100(H) 70 - 99 MG/DL 04/27/2024 12:14 PM [facility] BUN 19(H) 7 - 18 MG/DL 04/27/2024 12:14 PM [facility] CREATININE S/P/B 1.54(H) 0.7 - 1.3 MG/DL 04/27/2024 12:14 PM WHEEL TUNER [facility] SODIUM S/P/B 142 136 - 145 MMOL/L 04/27/2024 12:14 PM [facility] POTASSIUM S/P/B 3.8 3.5 - 5.1 MMOL/L 04/27/2024 12:14 PM [facility] CHLORIDE S/P/B 109 97 - 115 MMOL/L 04/27/2024 12:14 PM [facility] CO2 31.3 21 - 32 MMOL/L 04/27/2024 12:14 PM [facility] CALCIUM S/P/B 9.3 8.5 - 10.1 MG/DL 04/27/2024 12:14 PM [facility] BILIRUBIN TOTAL S/P/B 0.6 0.2 - 1.2 MG/DL 04/27/2024 12:14 PM [facility] Comment: THIS ASSAY IS NOT RECOMMENDED FOR PATIENTS UNDERGOING TREATMENT WITH ELTROMBOPAG DUE TO THE POTENTIAL FOR FALSELY ELEVATED RESULTS. TOTAL PROTEIN S/P/B 7.5 6.4 - 8.2 G/DL 04/27/2024 12:14 PM [facility] ALBUMIN S/P/B 3.3(L) 3.4 - 5.0 G/DL 04/27/2024 12:14 PM [facility] AST 20 15 - 37 U/L 04/27/2024 12:14 PM [facility] ALT 45 16 - 60 U/L 04/27/2024 12:14 PM [facility] ALKALINE PHOSPHATASE S/P/B 95 50 - 136 U/L 04/27/2024 12:14 PM [facility] ANION GAP 1.7(L) 2 - 10 MMOL/L 04/27/2024 12:14 PM [facility] BUN CREATININE RATIO 12.3 6 - 26 04/27/2024 12:14 PM [facility] A/G RATIO 0.8(L) 1.0 - 2.0 RATIO 04/27/2024 12:14 PM [facility] GFR ESTIMATE 44(L) >90 ML/MIN/1.7 3 M2 04/27/2024 12:14 PM [facility] Comment: NOTE: eGFR is not calculated for patients <18 years of age or gender unknown. This is an estimated GFR calculation using the new CKD EPI creatinine equation without race and so does not require a correction factor for race. This estimated GFR should not be used for calculating drug doses. 04/27/2024 11:3 6 AM WHEEL TUNER us Joel Radha Hradin NP LABORATORY Final Result [facility] [address] [place] [address], * (ABNORMAL) CBC W/DIFF AUTOMATED (04/27/2024 11:36 AM WHEEL TUNER) Only the most recent of6 resultswithin the time period is included. WBC 8.03 4.5 - 11.0 x10'3/uL 04/27/2024 12:10 PM WHEEL TUNER [facility] RBC 4.74 4.70 - 6.10 x10'6/uL 04/27/2024 12:10 PM WHEEL TUNER [facility] HGB 13.8(L) 14.0 - 18.0 G/DL 04/27/2024 12:10 PM [facility] HCT 42.6(L) 43.0 - 54.0 % 04/27/2024 12:10 PM WHEEL TUNER [facility] MCV 89.9 80.0 - 94.0 FL 04/27/2024 12:10 PM WHEEL TUNER [facility] MCH 29.1 27.0 - 31.0 PG 04/27/2024 12:10 PM WHEEL TUNER [facility] MCHC 32.4 32.0 - 36.0 G/DL 04/27/2024 12:10 PM [facility] RDW 14.6(H) 11.5 - 14.5 % 04/27/2024 12:10 PM [facility] PLT 314 130 - 400 x10'3/uL 04/27/2024 12:10 PM WHEEL TUNER [facility] MPV 10.7 9.3 - 12.2 FL 04/27/2024 12:10 PM [facility] DIFFERENTIAL TYPE AUTOMATED DIFFERENTIAL 04/27/2024 12:10 PM WHEEL TUNER [facility] NEUTROPHILS % 51.9 % 04/27/2024 12:10 PM WHEEL TUNER [facility] LYMPHOCYTES % 33.3 % 04/27/2024 12:10 PM WHEEL TUNER [facility] MONOCYTES % 11.0 % 04/27/2024 12:10 PM WHEEL TUNER [facility] EOSINOPHILS 2.7 % 04/27/2024 12:10 PM WHEEL TUNER [facility] BASOPHILS 0.6 % 04/27/2024 12:10 PM WHEEL TUNER [facility] IMMATURE GRANS % 0.5 % 04/27/20 12:10 PM WHEEL TUNER [facility] ABS. NEUTROPHILS 4.17 1.80 - 7.70 x10'3/uL 04/27/2024 12:10 PM WHEEL TUNER [facility] ABS. LYMPHOCYTES 2.67 1.00 - 4.80 x10'3/uL 04/27/2024 12:10 PM WHEEL TUNER [facility] ABS. MONOCYTES 0.88(H) 0.30 - 0.82 x10'3/uL 04/27/2024 12:10 PM WHEEL TUNER [facility] ABS. EOSINOPHILS 0.22 0.04 - 0.54 x10'3/uL 04/27/2024 12:10 PM WHEEL TUNER [facility] ABS. BASOPHILS 0.05 0.01 - 0.08 x10'3/uL 04/27/2024 12:10 PM [facility] ABS. IMMATURE GRANULOCYTES 0.04 0.00 - 0.49 x10'3/uL 04/27/2024 12:10 PM [facility] 04/27/2024 11:3 6 AM WHEEL TUNER Joel Radha Hardin [employer]PER[employer] LABORATORY Final Result [facility] [address] [place] [address], [place] [phone] * (ABNORMAL) BASIC METABOLIC PANEL (04/18/2024 5:55 AM WHEEL TUNER) Only the most recent of4 resultswithin the time period is included. GLUCOSE 111(H) 70 - 99 MG/DL 04/18/2024 6:34 AM [facility] BUN 14 7 - 18 MG/DL 04/18/2024 6:34 AM [facility] CREATININE S/P/B 1.16 0.7 - 1.3 MG/DL 04/18/2024 6:34 AM [facility] SODIUM S/P/B 141 136 - 145 MMOL/L 04/18/2024 6:34 AM [facility] POTASSIUM S/P/B 3.4(L) 3.5 - 5.1 MMOL/L 04/18/2024 6:34 AM [facility] CHLORIDE S/P/B 111 97 - 115 MMOL/L 04/18/2024 6:34 AM [facility] CO2 27.1 21 - 32 MMOL/L 04/18/2024 6:34 AM [facility] CALCIUM S/P/B 8.2(L) 8.5 - 10.1 MG/DL 04/18/2024 6:34 AM [facility] ANION GAP 2.9 2 - 10 MMOL/L 04/18/2024 6:34 AM [facility] BUN CREATININE RATIO 12.1 6 - 26 04/18/2024 6:34 AM WHEEL TUNER [facility] GFR ESTIMATE 61(L) >90 ML/MIN/1.7 3 M2 04/18/2024 6:34 AM WHEEL TUNER [facility] Comment: NOTE: eGFR is not calculated for patients <18 years of age or gender unknown. This is an estimated GFR calculation using the new CKD EPI creatinine equation without race and so does not require a correction factor for race. This estimated GFR should not be used for calculating drug doses. 04/18/2024 5:55 AM WHEEL TUNER Kelly LEHMAN LABORATORY Final Result [facility] [address] [place] [address], * XR CHEST PORTABLE (04/16/2024 12:00 PM WHEEL TUNER) Only the most recent of2 resultswithin the time period is included. Anatomical Region Laterality Modality Chest Radiographic Christy ging 04/16/2024 12:2 3 PM WHEEL TUNER Impressions 04/16/2024 12:26 PM WHEEL TUNER IMPRESSION: Low inspiratory volumes. Bibasilar opacities which may reflect atelectasis or infiltrate. Referred By: Interpreted By: Sang Cano MD, 04/16/2024 12:23 PM Narrative 04/16/2024 12:26 PM WHEEL TUNER [facility] [address] [place], [place] [address] XR CHEST PORTABLE INDICATION: sepsis, increasing work of breathing TECHNIQUE: Portable AP view of the chest. COMPARISON: None available. FINDINGS: Low inspiratory volumes decreases sensitivity of this examination. Cardiac size is magnified. No pulmonary vascular congestion. Bibasilar opacities which may reflect atelectasis or infiltrate. No sizable pleural effusion or pneumothorax. Procedure Note Sang Cano MD - 04/16/2024 [facility] [address] [place], [place] [address] XR CHEST PORTABLE INDICATION: sepsis, increasing work of breathing TECHNIQUE: Portable AP view of the chest. COMPARISON: None available. FINDINGS: Low inspiratory volumes decreases sensitivity of this examination.Cardiac size is magnified. No pulmonary vascular congestion. Bibasilaropacities which may reflect atelectasis or infiltrate. No sizable pleuraleffusion or pneumothorax. IMPRESSION: Low inspiratory volumes. Bibasilar opacities which may reflectatelectasis or infiltrate. Referred By: Interpreted By: Sang Cano MD, 04/16/2024 12:23 PM Kvng Sterling MD GENERAL IMAGING Final Result * (ABNORMAL) HEMOGLOBIN, GLYCATED (04/15/2024 9:13 AM WHEEL TUNER) HGB A1C 6.5(H) <5.7 % 04/15/2024 10:17 AM WHEEL TUNER [facility] Comment: ADA GUIDELINES 2010 5.7 TO 6.4% INCREASED RISK OF DIABETES > OR = 6.5% CONSISTENT WITH DIABETES ESTIMATED AVG GLUCOSE 140 mg/dL 04/15/2024 10:17 AM WHEEL TUNER [facility] 04/15/2024 9:13 AM WHEEL TUNER Desiree Cannon MD LABORATORY Final Resul t [facility] [address] [place] [address], [place] [phone] * VITAMIN B-12 (04/15/2024 9:13 AM WHEEL TUNER) VITAMIN B12 S/P/B 321 254 - 1,320 PG/ML 04/15/2024 12:58 PM WHEEL TUNER [facility] 04/15/2024 9:13 AM WHEEL TUNER Kelly LEHMAN LABORATORY Final Result Performing Organization Address [facility] Co de Phone Number [facility] [address] [place] [phone], * (ABNORMAL) PROTHROMBIN TIME, VENOUS (04/15/2024 9:13 AM WHEEL TUNER) PROTIME 14.1(H) 10.2 - 12.9 SEC 04/15/2024 9:50 AM WHEEL TUNER [facility] INR 1.2 04/15/2024 9:50 AM WHEEL TUNER [facility] Comment: Recommended INR Therapeutic Goals: 2.0-3.0 Routine Therapy 2.5-3.5 Mechanical Prosthetic Valves (High Risk) 04/15/2024 9:13 AM WHEEL TUNER Desiree Cannon MD LABORATORY Final Resul t Performing Organization Address [facility] Co de Phone Number [facility] [address] [place] [phone], * (ABNORMAL) FOLIC ACID SERUM (04/15/2024 9:13 AM WHEEL TUNER) FOLATE 23.0(H) 3.1 - 17.5 NG/ML 04/15/2024 12:58 PM WHEEL TUNER [facility] 04/15/2024 9:13 AM WHEEL TUNER Kelly LEHMAN LABORATORY Final Result Performing Organization Address City/[facility]/ZIP Co de Phone Number [facility] [address] [place] [address], * THYROID STIM HORMONE, TSH (04/15/2024 9:13 AM WHEEL TUNER) Only the most recent of2 resultswithin the time period is included. TSH 1.540 0.358 - 3.74 uIU/ML 04/15/2024 10:12 AM WHEEL TUNER [facility] Comment: HIGH DOSES OF BIOTIN MAY INTERFERE WITH THIS TEST RESULT. CORRELATION TO CLINICAL HISTORY AND PRESENTATION RECOMMENDED. 04/15/2024 9:13 AM WHEEL TUNER Desiree Cannon MD LABORATORY Final Resul t [facility] [address] [place] [id number], * MAGNESIUM (04/15/2024 9:13 AM WHEEL TUNER) Only the most recent of2 resultswithin the time period is included. MAGNESIUM 1.8 1.8 - 2.4 MG/DL 04/15/2024 10:12 AM WHEEL TUNER [facility] 04/15/2024 9:13 AM WHEEL TUNER Desiree Cannon MD LABORATORY Final Resul t [facility] [address] [place] [phone], * CT HEAD WO CON (04/15/2024 2:21 AM WHEEL TUNER) Anatomical Region Laterality Modality Head Computed Tomogra phy 04/15/2024 2:24 AM WHEEL TUNER Impressions 04/15/2024 2:26 AM WHEEL TUNER IMPRESSION: 1. No evidence of acute intracranial pathology. 2. Age-related atrophy and mild small vessel ischemic changes. Referred By: Interpreted By: Sugar Wang MD, 04/15/2024 2:24 AM Narrative 04/15/2024 2:26 AM WHEEL TUNER [place] [address] EXAMINATION: CT Head without INDICATION: Altered mental status. Known dementia. COMPARISON: No pertinent prior available for comparison. TECHNIQUE: Axial images were obtained through the head without intravenous contrast administration. DOSE OPTIMIZATION: This facility uses dose optimization techniques as appropriate to perform exams, including at least one of the following techniques: 1. Automated exposure control. 2. Adjustment of the mA and/or kV according to patient size (this includes techniques or standardized protocols for targeted exams where dose is matched to the indication/reason for exam, i.e. extremities or head). 3. Use of iterative reconstructive technique. FINDINGS: Cerebral Parenchyma: There is normal kang-white matter differentiation bilaterally with no evidence of acute ischemia. Age-related atrophy with central predominance. Mild small vessel ischemic changes. Ventricles: No mass effect or midline shift. Hemorrhage: None. Sinus and Mastoids: Trace left maxillary sinus mucoperiosteal thickening. The mastoid air cells are well aerated. Bones: The calvaria is normal and intact. Soft Tissues: The visualized soft tissues appear unremarkable. Procedure Note Sugar Wang MD - 04/15/2024 [facility] [address] [place], [place] [address] EXAMINATION: CT Head without INDICATION: Altered mental status. Known dementia. COMPARISON: No pertinent prior available for comparison. TECHNIQUE: Axial images were obtained through the head without intravenouscontrast administration. DOSE OPTIMIZATION: This facility uses dose optimization techniques asappropriate to perform exams, including at least one of the followingtechniques: 1. Automated exposure control. 2. Adjustment of the mA and/or kV according to patient size (this includestechniques or standardized protocols for targeted exams where dose ismatched to the indication/reason for exam, i.e. extremities or head). 3. Use of iterative reconstructive technique. FINDINGS: Cerebral Parenchyma: There is normal kang-white matter differentiation bilaterally with noevidence of acute ischemia. Age-related atrophy with centralpredominance. Mild small vessel ischemic changes. Ventricles: No mass effect or midline shift. Hemorrhage: None. Sinus and Mastoids: Trace left maxillary sinus mucoperiosteal thickening. The mastoid aircells are well aerated. Bones: The calvaria is normal and intact. Soft Tissues: The visualized soft tissues appear unremarkable. IMPRESSION: 1. No evidence of acute intracranial pathology. 2. Age-related atrophy and mild small vessel ischemic changes. Referred By: Interpreted By: Sugar Wang MD, 04/15/2024 2:24 AM Desiree Cannon MD CT Final Resul t * LACTIC ACID W REFLEX (SEPSIS) (04/14/2024 10:51 PM WHEEL TUNER) LACTIC ACID VENOUS 1.4 0.4 - 2.0 MMOL/L 04/14/2024 11:32 PM WHEEL TUNER [facility] 04/14/2024 10:5 1 PM WHEEL TUNER Chris Gilmore MD,PHD LABORATORY Final Resu lt [facility] [address] [place] [address], * THYROXINE, FREE (FT4) (04/14/2024 10:51 PM WHEEL TUNER) FREE T4 0.99 0.76 - 1.46 NG/DL 04/14/2024 11:42 PM WHEEL TUNER [facility] 04/14/2024 10:5 1 PM WHEEL TUNER Chris Gilmore MD,PHD LABORATORY Final Resu lt Performing Organization Address City/[facility] Co de Phone Number [facility] [address] [place] [address], [place] [phone] * (ABNORMAL) PHOSPHORUS, INORGANIC PHOSPHATE (04/14/2024 10:51 PM WHEEL TUNER) PHOSPHORUS 2.1(L) 2.5 - 4.9 MG/DL 04/14/2024 11:42 PM WHEEL TUNER [facility] 04/14/2024 10:5 1 PM WHEEL TUNER us Chris Gilmore MD,PHD LABORATORY Final Resu lt Performing Organization Address [facility] Co de Phone Number [facility] [address] [place] [address], [place] [phone] * CORONAVIRUS (COVID 19) (04/14/2024 10:35 PM WHEEL TUNER) CORONAVIRUS SARS COV 2 RNA NEGATIVE NEGATIVE 04/14/2024 11:39 PM WHEEL TUNER [facility] Comment: NEGATIVE RESULTS DO NOT RULE OUT COVID 19 AND SHOULD NOT BE USED THE SOLE BASIS FOR TREATMENT OR PATIENT MANAGEMENT DECISIONS, INCLUDING INFECTION CONTROL DECISIONS. NEGATIVE RESULTS SHOULD BE CONSIDERED IN THE CONTEXT OF A PATIENT'S RECENT EXPOSURES, HISTORY AND THE PRESENCE OF CLINICAL SIGNS AND SYMPTOMS CONSISTENT WITH COVID 19. THE ID NOW COVID-19 2.0 TEST HAS BEEN AUTHORIZED BY THE FDA UNDER EAU FOR USE BY AUTHORIZED LABORATORIES. PERFORMED BY NUCLEIC ACID AMPLIFICATION FOR MOLECULAR QUALITATIVE DETECTION OF SARS-COV-2. SPECIMEN TYPE NASAL 04/14/2024 11:06 PM WHEEL TUNER [facility] NASAL STRUCTURE / Unknown 04/14/2024 10:35 PM WHEEL TUNER us Chris Gilmore MD,PHD MICROBIOLOGY - GENERAL ORD ERABLES Final Result Performing Organization Address City/[facility]/ZIP Co de Phone Number [facility] [address] [place] [address], [place] [phone] * INFLUENZA A & B, RAPID (04/14/2024 10:35 PM WHEEL TUNER) SPECIMEN TYPE NASAL 04/14/2024 11:11 PM WHEEL TUNER [facility] INFLUENZA A NEGATIVE NEGATIVE 04/14/2024 11:38 PM WHEEL TUNER [facility] INFLUENZA B NEGATIVE NEGATIVE 04/14/2024 11:38 PM WHEEL TUNER [facility] Comment: Interpretation: Negative for Influenza A and B. A negative result does not exclude influenza virus infection. If influenza is circulating in your community, a diagnosis of influenza should be considered based on a patient's clinical presentation and empiric antiviral treatment should be considered, if indicated. If more conclusive testing is needed for hospitalized inpatients, follow-up confirmatory testing with RT-PCR requires a separate order. NASOPHARYNGEAL SWAB / Unknown 04/14/2024 10:35 PM WHEEL TUNER us Chris Gilmore MD,PHD MICROBIOLOGY - GENERAL ORD ERABLES Final Result [facility] [address] [place] [address], [place] [phone] * PROCALCITONIN (PCT) (04/14/2024 10:34 PM WHEEL TUNER) Procalcitonin 0.43 0.00 - 0.49 NG/ML 04/15/2024 12:13 AM WHEEL TUNER [facility] 04/14/2024 10:3 4 PM WHEEL TUNER us Chris Gilmore MD,PHD LABORATORY Final Resu lt [facility] [address] [facility] [place] [address], * CULTURE BACTERIA, BLOOD (04/14/2024 10:34 PM WHEEL TUNER) SPEC DESCRIPTION BLOOD 04/14/2024 9:50 PM WHEEL TUNER [facility] SPECIAL REQUESTS NO SPECIAL REQUEST 04/14/2024 9:50 PM WHEEL TUNER [facility] CULTURE RESULT NO GROWTH 5 DAYS 04/19/2024 7:51 AM WHEEL TUNER [facility] BLOOD SPECIMEN OBTAINED FOR BLOOD CULTURE / Unknown 04/14/2024 10:34 PM WHEEL TUNER 04/14/2024 11:09 PM WHEEL TUNER Chris Gilmore MD,PHD MICROBIOLOGY - GENERAL ORD ERABLES Final Result [facility] [address] [place] [address], from Last 3 Months Insurance [employer] Advance Directives Documents on File Type Date Recorded Patient Football Coach Expl anation DNR (Do Not Resuscitate) Documentation 04/20/2024 2:47 PM Advance Directives and Livin g Will 04/20/2024 2:44 PM Power of Service Support Representative 04/15/2024 2:14 AM POA 1 06-16-2023 * DNR (Latest Code Status on File) Date Activated Date Inactivated Comments 04/15/2024 4:26 AM 04/19/2024 6:26 PM * DNR Date Activated Date Inactivated Comments 04/15/2024 2:44 AM 04/15/2024 2:08 PM Care Teams Spinning Frame Tender Relationship Specialty Start Date End Date Willi Leiva MD [address] [place] [phone] PCP - General FAMILY PRACTICE 04/14/24
--- OUTSIDE RECORDS SUMMARY | 2024-06-26 03:43 | XMS_ITS | Clinical Summary ---
Author Organization [facility] Address [address] [place] [phone] Phone Care Team Providers Care Noodle Maker Name Role Phone Teddy Alexis Primary Care Provider [phone] Allergies No known active allergies Medications Medication Sig Dispensed Refills Start Date End Date Status finasteride (PROSCAR) 5 MG tablet Take 5 mg by mouth 1 (one) time each day 10/18/2021 Active gemfibrozil (LOPID) 600 MG tablet TAKE 1/2 A TABLET BY MOUTH TWICE DAILY 10/17/2021 Active pravastatin (PRAVACHOL) 20 MG tablet Take 20 mg by mouth 1 (one) time each day 10/17/2021 Active tamsulosin (FLOMAX) 0.4 MG 24 hr capsule Take by mouth 1 (one) time each day 10/18/2021 Active verapamil ER (VERELAN) 240 MG 24 hr capsule Take by mouth 1 (one) time each day 10/16/2021 Active cinnamon 500 MG capsule Take 1,000 mg by mouth 1 (one) time each day Active Multiple Vitamin (multivitamin) capsule Take 1 capsule by mouth 1 (one) time each day Active Calcium Carbonate-Vitamin D3 600-400 MG-UNIT tablet Take by mouth Active Misc Natural Products (GINKOGIN PO) Take by mouth Active omega-3 (FISH OIL) 1200 MG capsule Take 1,200 mg by mouth 1 (one) time each day Active aspirin (ST JAMES) 81 MG EC tablet Take 81 mg by mouth 1 (one) time each day Active Active Problems Problem Noted Date Diagnosed Date Essential hypertension 11/14/2021 Dyslipidemia 11/14/2021 Chronic kidney disease stage 3B 11/14/2021 Immunizations Name Administration Dates Next Due Pneumococcal Conjugate 13-Valent 01/10/2020 Family History Medical History Relation Comments Kidney disease Neg Hx Social History Tobacco Use Types Packs/Day Years Used Date Smoking Tobacco: Never Smokeless Tobacco: Never Alcohol Use Standard Drinks/Week Comments Yes 0 (1 standard drink = 0.6 oz pur e alcohol) rare Sex and Gender Information Value Date Recorded Sex Assigned at Male 11/25/2021 6:34 AM MDT Gender Identity Male 11/25/2021 6:34 AM MDT Sexual Orientation Straight 11/25/2021 6: 34 AM MDT Last Filed Vital Signs Vital Sign Reading Time Taken Comments Blood Pressure 118/70 11/14/2021 9:48 AM CDT Pulse 72 11/14/2021 9:48 AM CDT Temperature 36.3 C (97.3 F) 11/14/2021 9:48 AM CDT Respiratory Rate - - Oxygen Saturation - - Inhaled Oxygen Concentration - - Weight 73 kg (161 lb) 11/14/2021 9:48 AM CDT Height 170.2 cm (5' 7 ) 11/14/2021 9:48 AM CDT Body Mass Index 25.22 11/14/2021 9:48 AM CDT Plan of Treatment Health Maintenance Due Date Last Done Comments Pneumococcal PPSV23/PCV13 65 + Years / Low and Medium Risk (2 of 3 - PPSV23 or PCV20) 2021 01/10/2020 Influenza Vaccine (#1) 2024 Care Teams Noodle Maker Relationship Specialty Start Date End Date Teddy Alexis DO [address] [place] [phone] PCP - General Internal Medicine 10/14/21
--- NOTE | 2024-06-26 04:20 | ECG_ITS ---
Test Date: 2024-06-26 07:04:39 Measurements Intervals Rex Rate: 69 P: 24 MD: 196 QRS: 8 QRSD: 90 T: 44 QT: 384 QTc: 412 Interpretive Statements SINUS RHYTHM DELAYED PRECORDIAL R/S TRANSITION VOLTAGE CRITERIA FOR LVH CONSIDER INFERIOR INFARCT, AGE INDETERMINATE BASELINE ARTIFACT- I, II, III, AVR, AVL, AVF, V1-V6 ABNORMAL ECG Compared to ECG 11/04/2023 10:21:49 HEART RATE HAS INCREASED Electronically Signed On 06-26-2024 08:13:56 CORE MOUNTER by Pj Nolasco D.O.
--- OUTSIDE RECORDS SUMMARY | 2024-06-26 04:29 | XMS_ITS | Clinical Summary ---
Author Organization [facility] Address [address] [place] [phone] Phone Care Team Providers Care Finish Production Manager Name Role Phone Teddy Alexis Primary Care Provider [phone] Allergies No known active allergies Medications Medication [...] 01/10/2020 Influenza Vaccine (#1) 2024 Care Teams Finish Production Manager Relationship Specialty Start Date End Date Teddy Alexis DO [address] [phone] PCP - General Internal Medicine 10/14/21
--- OUTSIDE RECORDS SUMMARY | 2024-06-26 04:29 | XMS_ITS | Clinical Summary ---
Author Organization [facility] Address [address] [place] [address] Care Team Providers Care Mailroom Associate Name Role Phone Willi Leiva MD Primary Care Provider [phone] Allergies Active Allergy Reactions Criticality Noted Date [...] mouth as needed (Constipation). 4 Active B Yfefmlh-H-Kpliu Acid Tab Take 1 tablet by mouth daily. 4 Active Calcium Carbonate-Vitami n D (CALCIUM 600 + D OR) Take 1 tablet by mouth daily. 4 Active Active Problems Problem Noted Date Diagnosed Date Sepsis ([facility]) 04/15/2024 Encounters Date Type Department Care Team Description 04/27/2024 11:23 AM SAND DRIER - 04/27/2024 3:06 PM SAND DRIER Emergency [facility] [place] [address] Tab Gonzalez PA-C Urinary Symptoms; Blood In Urine Discharge Disposition: Home or Self Care (Routine Discharge) 04/27/2024 Travel 04/15/2024 2:14 AM SAND DRIER - 04/19/2024 4:16 PM SAND DRIER Hospital Encounter [facility] Med/Surg [address] [place] [address] Chris Gilmore MD,PHD Desiree Cannon MD Doan, Melissa K, PA Duenas, Vincent J, MD Urinary Symptoms Discharge Disposition: Senior Living Facility 04/15/2024 Travel 04/14/2024 9:27 PM SAND DRIER - 04/15/2024 2:14 AM SAND DRIER Hospital Encounter [facility] [place] [address] Chris Gilmore MD,PHD Desiree Cannon MD Non-Staff, [...] drink = 0.6 oz pur e alcohol) [facility] Utilities Answer Date Recorded In the past 12 months has th e electric, gas, oil, or water [employer] threatened to shut off services in your [...] any time in the past 12 m [facility], were you homeless or living in a intermediate (including now)? No 04/15/2024 Sex and Gender Information Value Date Recorded Sex Assigned at Not on file Legal Sex Male 1:53 AM SAND DRIER Gender Identity Not on file Sexual Orientation Not on file Last Filed Vital Signs Vital Sign Reading Time Taken Comments Blood Pressure 162/93 04/27/2024 2:01 PM SAND DRIER Pulse 60 04/27/2024 2:21 PM SAND DRIER Temperature 36.6 C (97.9 F) 04/27/2024 11:03 AM SAND DRIER Respiratory Rate 17 04/27/2024 2:21 PM SAND DRIER Oxygen Saturation 92% 04/27/2024 2:21 PM SAND DRIER Inhaled Oxygen Concentration - - Weight 72.6 kg (160 lb 0.9 oz) 04/18/2024 6:03 A M SAND DRIER Height 172.7 cm (5' 8 ) 04/27/2024 11:03 AM SAND DRIER Body Mass Index 24.34 04/15/2024 4:44 AM SAND DRIER Plan of Treatment Health Maintenance Due Date [...] Comments URINE BACTERIA CULTURE STAT 11:36 AM SAND DRIER HC URINALYSIS AUTO W/O MICRO STAT 04/27/2024 11:36 AM SAND DRIER COMPREHENSIVE METABOLIC PANEL STAT 04/27/2024 11:36 AM SAND DRIER CBC W/DIFF AUTOMATED STAT 04/27/2024 11:36 AM SAND DRIER CBC W/DIFF AUTOMATED Routine 04/18/2024 5:55 AM SAND DRIER BASIC METABOLIC PANEL Routine 04/18/2024 5:55 AM SAND DRIER CBC W/DIFF AUTOMATED Routine 04/17/2024 5:00 AM SAND DRIER BASIC METABOLIC PANEL Routine 04/17/2024 5:00 AM SAND DRIER XR CHEST PORTABLE Today 04/16/2024 12: 00 PM SAND DRIER CBC W/DIFF AUTOMATED Routine 04/16/2024 5:49 AM SAND DRIER BASIC METABOLIC PANEL Routine 04/16/2024 5:49 AM SAND DRIER FOLIC ACID SERUM Routine 04/15/2024 9:13 AM SAND DRIER VITAMIN B-12 Routine 04/15/2024 9:13 AM SAND DRIER BASIC METABOLIC PANEL Routine 04/15/2024 9:13 AM SAND DRIER THYROID STIM HORMONE TSH Routine 04/15/2024 9:13 AM SAND DRIER HEMOGLOBIN, GLYCOSYLATED Routine 04/15/2024 9:13 AM SAND DRIER MAGNESIUM Routine 04/15/2024 9:13 AM SAND DRIER PROTHROMBIN TIME, VENOUS Routine 04/15/2024 9:13 AM SAND DRIER CBC W/DIFF AUTOMATED Routine 04/15/2024 9:[address] HEAD WO CON STAT 04/15/2024 2:21 AM SAND DRIER URINE BACTERIA CULTURE STAT 11:02 PM SAND DRIER HC URINALYSIS AUTO W/O MICRO STAT 04/14/2024 11:02 PM SAND DRIER PHOSPHORUS, INORGANIC PHOSPHATE STAT 04/14/2024 10:51 PM SAND DRIER MAGNESIUM STAT 04/14/2024 10:51 PM SAND DRIER THYROXINE, FREE (FT4) STAT 04/14/2024 10:51 PM SAND DRIER THYROID STIM HORMONE TSH STAT 04/14/2024 10:51 PM SAND DRIER LACTIC ACID W REFLEX (SEPSIS) STAT 04/14/2024 10:51 PM SAND DRIER COMPREHENSIVE METABOLIC PANEL STAT 04/14/2024 10:51 PM SAND DRIER CBC W/DIFF AUTOMATED STAT 04/14/2024 10:51 PM SAND DRIER INFLUENZA A & B STAT 04/14/2024 10:35 PM SAND DRIER CORONAVIRUS (COVID 19) STAT 10:35 PM SAND DRIER CULTURE, BACTERIA, BLOOD STAT 04/14/2024 10:34 PM SAND DRIER PROCALCITONIN (PCT) STAT 04/14/2024 1 0:34 PM SAND DRIER XR CHEST PORTABLE STAT 04/14/2024 10: 00 PM SAND DRIER from Last 3 Months Results * URINALYSIS (04/27/2024 11:36 AM SAND DRIER) Only the most recent of2 resultswithin the time period is included. SPECIMEN TYPE URINE CLEAN CATCH 04/27/2024 1:32 PM SAND DRIER [facility] COLOR (U) YELLOW 04/27/2024 1:46 PM SAND DRIER [facility] TRANSPARENCY CLEAR 04/27/2024 1:46 PM SAND DRIER [facility] SPECIFIC GRAVITY (U) 1.019 1.001 - 1.030 04/27/2024 1:46 PM SAND DRIER [facility] U PH 5.5 5.0 - 9.0 04/27/2024 1:46 PM SAND DRIER [facility] LEUKOCYTES (U) NEGATIVE NEGATIVE 04/27/2024 1:46 PM SAND DRIER [facility] NITRITES NEGATIVE NEGATIVE 04/27/2024 1:46 PM SAND DRIER [facility] PROTEIN RANDOM (U) 20 <30 MG/DL 04/27/2024 1:46 PM SAND DRIER [facility] GLUCOSE (U) NORMAL NORMAL MG/DL 04/27/2024 1:46 PM SAND DRIER [facility] KETONES MG/DL (U) NEGATIVE NEGATIVE MG/DL 04/27/2024 1:46 PM SAND DRIER [facility] UROBILINOGEN NORMAL NORMAL MG/DL 04/27/2024 1:46 PM SAND DRIER [facility] BILIRUBIN (U) NEGATIVE NEGATIVE MG/DL 04/27/2024 1:46 PM SAND DRIER [facility] BLOOD (U) NEGATIVE NEGATIVE 04/27/2024 1:46 PM [facility] URINE SPECIMEN OBTAINED BY CLEAN CATCH PROCEDURE / Unknown 04/27/2024 11:36 AM SAND DRIER us Joel Hardin DAIRY HELPER URINE ORDERABLES Final Result [facility] [address] [place] [address], [place] [phone] * CULTURE URINE (04/27/2024 11:36 AM SAND DRIER) Only the most recent of2 resultswithin the time period is included. SPEC DESCRIPTION URINE CLEAN CATCH 04/27/2024 1:32 PM SAND DRIER [facility] SPECIAL REQUESTS NO SPECIAL REQUEST 04/27/2024 1:32 PM SAND DRIER [facility] CULTURE RESULT NO GROWTH 2 DAYS 04/29/2024 9:07 AM SAND DRIER [facility] URINE SPECIMEN OBTAINED BY CLEAN CATCH PROCEDURE / Unknown 04/27/2024 11:36 AM SAND DRIER 04/27/2024 1:34 PM SAND DRIER us Joel Hardin NP MICROBIOLOGY - GENERAL ORDERAB LES Final Result [facility] [address] [place] [address], * (ABNORMAL) COMPREHENSIVE METABOLIC PANEL (04/27/2024 11:36 AM SAND DRIER) Only the most recent of2 resultswithin the time period is included. GLUCOSE 100(H) 70 - 99 MG/DL 04/27/2024 12:14 PM [facility] BUN 19(H) 7 - 18 MG/DL 04/27/2024 12:14 PM [facility] CREATININE S/P/B 1.54(H) 0.7 - 1.3 MG/DL 04/27/2024 12:14 PM SAND DRIER [facility] SODIUM S/P/B 142 136 - 145 MMOL/L 04/27/2024 12:14 PM [facility] POTASSIUM S/P/B 3.8 3.5 - 5.1 MMOL/L 04/27/2024 12:14 PM [facility] CHLORIDE S/P/B 109 97 - 115 MMOL/L 04/27/2024 12:14 PM [facility] CO2 31.3 21 - 32 MMOL/L 04/27/2024 12:14 PM [facility] CALCIUM S/P/B 9.3 8.5 - 10.1 MG/DL 04/27/2024 12:14 PM [facility] BILIRUBIN TOTAL S/P/B 0.6 0.2 - 1.2 MG/DL 04/27/2024 12:14 PM [facility] Comment: THIS ASSAY IS NOT RECOMMENDED FOR PATIENTS UNDERGOING TREATMENT WITH ELTROMBOPAG DUE TO THE POTENTIAL FOR FALSELY ELEVATED RESULTS. TOTAL PROTEIN S/P/B 7.5 6.4 - 8.2 G/DL 04/27/2024 12:14 PM [facility] ALBUMIN S/P/B 3.3(L) 3.4 - 5.0 G/DL 04/27/2024 12:14 PM [facility] AST 20 15 - 37 U/L 04/27/2024 12:14 PM [facility] ALT 45 16 - 60 U/L 04/27/2024 12:14 PM [facility] ALKALINE PHOSPHATASE S/P/B 95 50 - 136 U/L 04/27/2024 12:14 PM [facility] ANION GAP 1.7(L) 2 - 10 MMOL/L 04/27/2024 12:14 PM [facility] BUN CREATININE RATIO 12.3 6 - 26 04/27/2024 12:14 PM [facility] A/G RATIO 0.8(L) 1.0 - 2.0 RATIO 04/27/2024 12:14 PM [facility] GFR ESTIMATE 44(L) >90 ML/MIN/1.7 3 M2 04/27/2024 12:14 PM [facility] Comment: NOTE: eGFR is not calculated for patients <18 years of age or gender unknown. This is an estimated GFR calculation using the new CKD EPI creatinine equation without race and so does not require a correction factor for race. This estimated GFR should not be used for calculating drug doses. 04/27/2024 11:3 6 AM SAND DRIER us Joel Radha Hardin NP LABORATORY Final Result [facility] [address] [place] [address], * (ABNORMAL) CBC W/DIFF AUTOMATED (04/27/2024 11:36 AM SAND DRIER) Only the most recent of6 resultswithin the time period is included. WBC 8.03 4.5 - 11.0 x10'3/uL 04/27/2024 12:10 PM SAND DRIER [facility] RBC 4.74 4.70 - 6.10 x10'6/uL 04/27/2024 12:10 PM SAND DRIER [facility] HGB 13.8(L) 14.0 - 18.0 G/DL 04/27/2024 12:10 PM [facility] HCT 42.6(L) 43.0 - 54.0 % 04/27/2024 12:10 PM SAND DRIER [facility] MCV 89.9 80.0 - 94.0 FL 04/27/2024 12:10 PM SAND DRIER [facility] MCH 29.1 27.0 - 31.0 PG 04/27/2024 12:10 PM SAND DRIER [facility] MCHC 32.4 32.0 - 36.0 G/DL 04/27/2024 12:10 PM [facility] RDW 14.6(H) 11.5 - 14.5 % 04/27/2024 12:10 PM [facility] PLT 314 130 - 400 x10'3/uL 04/27/2024 12:10 PM SAND DRIER [facility] MPV 10.7 9.3 - 12.2 FL 04/27/2024 12:10 PM [facility] DIFFERENTIAL TYPE AUTOMATED DIFFERENTIAL 04/27/2024 12:10 PM SAND DRIER [facility] NEUTROPHILS % 51.9 % 04/27/2024 12:10 PM SAND DRIER [facility] LYMPHOCYTES % 33.3 % 04/27/2024 12:10 PM SAND DRIER [facility] MONOCYTES % 11.0 % 04/27/2024 12:10 PM SAND DRIER [facility] EOSINOPHILS 2.7 % 04/27/2024 12:10 PM SAND DRIER [facility] BASOPHILS 0.6 % 04/27/2024 12:10 PM SAND DRIER [facility] IMMATURE GRANS % 0.5 % 04/27/20 12:10 PM SAND DRIER [facility] ABS. NEUTROPHILS 4.17 1.80 - 7.70 x10'3/uL 04/27/2024 12:10 PM SAND DRIER [facility] ABS. LYMPHOCYTES 2.67 1.00 - 4.80 x10'3/uL 04/27/2024 12:10 PM SAND DRIER [facility] ABS. MONOCYTES 0.88(H) 0.30 - 0.82 x10'3/uL 04/27/2024 12:10 PM SAND DRIER [facility] ABS. EOSINOPHILS 0.22 0.04 - 0.54 x10'3/uL 04/27/2024 12:10 PM SAND DRIER [facility] ABS. BASOPHILS 0.05 0.01 - 0.08 x10'3/uL 04/27/2024 12:10 PM [facility] ABS. IMMATURE GRANULOCYTES 0.04 0.00 - 0.49 x10'3/uL 04/27/2024 12:10 PM [facility] 04/27/2024 11:3 6 AM SAND DRIER Joel Radha Hardin DAIRY HELPER LABORATORY Final Result [facility] [address] [place] [address], [place] [phone] * (ABNORMAL) BASIC METABOLIC PANEL (04/18/2024 5:55 AM SAND DRIER) Only the most recent of4 resultswithin the time period is included. GLUCOSE 111(H) 70 - 99 MG/DL 04/18/2024 6:34 AM [facility] BUN 14 7 - 18 MG/DL 04/18/2024 6:34 AM [facility] CREATININE S/P/B 1.16 0.7 - 1.3 MG/DL 04/18/2024 6:34 AM [facility] SODIUM S/P/B 141 136 - 145 MMOL/L 04/18/2024 6:34 AM [facility] POTASSIUM S/P/B 3.4(L) 3.5 - 5.1 MMOL/L 04/18/2024 6:34 AM [facility] CHLORIDE S/P/B 111 97 - 115 MMOL/L 04/18/2024 6:34 AM [facility] CO2 27.1 21 - 32 MMOL/L 04/18/2024 6:34 AM [facility] CALCIUM S/P/B 8.2(L) 8.5 - 10.1 MG/DL 04/18/2024 6:34 AM [facility] ANION GAP 2.9 2 - 10 MMOL/L 04/18/2024 6:34 AM [facility] BUN CREATININE RATIO 12.1 6 - 26 04/18/2024 6:34 AM SAND DRIER [facility] GFR ESTIMATE 61(L) >90 ML/MIN/1.7 3 M2 04/18/2024 6:34 AM SAND DRIER [facility] Comment: NOTE: eGFR is not calculated for patients <18 years of age or gender unknown. This is an estimated GFR calculation using the new CKD EPI creatinine equation without race and so does not require a correction factor for race. This estimated GFR should not be used for calculating drug doses. 04/18/2024 5:55 AM SAND DRIER Kelly LEHMAN LABORATORY Final Result [facility] [address] [place] [address], * XR CHEST PORTABLE (04/16/2024 12:00 PM SAND DRIER) Only the most recent of2 resultswithin the time period is included. Anatomical Region Laterality Modality Chest Radiographic Christy ging 04/16/2024 12:2 3 PM SAND DRIER Impressions 04/16/2024 12:26 PM SAND DRIER IMPRESSION: Low inspiratory volumes. Bibasilar opacities which may reflect atelectasis or infiltrate. Referred By: Interpreted By: Sang Cano MD, 04/16/2024 12:23 PM Narrative 04/16/2024 12:26 PM SAND DRIER [facility] [address] [place], [place] [address] XR CHEST PORTABLE INDICATION: sepsis, increasing work of breathing TECHNIQUE: Portable AP view of the chest. COMPARISON: None available. FINDINGS: Low inspiratory volumes decreases sensitivity of this examination. Cardiac size is magnified. No pulmonary vascular congestion. Bibasilar opacities which may reflect atelectasis or infiltrate. No sizable pleural effusion or pneumothorax. Procedure Note Sang Cano MD - 04/16/2024 [facility] [address] [place], [place] [address] XR CHEST PORTABLE INDICATION: sepsis, increasing work [...] * (ABNORMAL) HEMOGLOBIN, GLYCATED (04/15/2024 9:13 AM SAND DRIER) HGB A1C 6.5(H) <5.7 % 04/15/2024 10:17 AM SAND DRIER [facility] Comment: ADA GUIDELINES 2010 5.7 TO 6.4% INCREASED RISK OF DIABETES > OR = 6.5% CONSISTENT WITH DIABETES ESTIMATED AVG GLUCOSE 140 mg/dL 04/15/2024 10:17 AM SAND DRIER [facility] 04/15/2024 9:13 AM SAND DRIER Desiree Cannon MD LABORATORY Final Resul t [facility] [address] [place] [address], [place] [phone] * VITAMIN B-12 (04/15/2024 9:13 AM SAND DRIER) VITAMIN B12 S/P/B 321 254 - 1,320 PG/ML 04/15/2024 12:58 PM SAND DRIER [facility] 04/15/2024 9:13 AM SAND DRIER Kelly LEHMAN LABORAT[facility] Final Result Performing Organization Address [facility] Co de Phone Number [facility] [address] [place] [phone], * (ABNORMAL) PROTHROMBIN TIME, VENOUS (04/15/2024 9:13 AM SAND DRIER) PROTIME 14.1(H) 10.2 - 12.9 SEC 04/15/2024 9:50 AM SAND DRIER [facility] INR 1.2 04/15/2024 9:50 AM SAND DRIER [facility] Comment: Recommended INR Therapeutic Goals: 2.0-3.0 Routine Therapy 2.5-3.5 Mechanical Prosthetic Valves (High Risk) 04/15/2024 9:13 AM SAND DRIER Desiree Cannon MD LABORATORY Final Resul t Performing Organization Address [facility] Co de Phone Number [facility] [address] [place] [address], * (ABNORMAL) FOLIC ACID SERUM (04/15/2024 9:13 AM SAND DRIER) FOLATE 23.0(H) 3.1 - 17.5 NG/ML 04/15/2024 12:58 PM SAND DRIER [facility] 04/15/2024 9:13 AM SAND DRIER Kelly LEHMAN LABORAT[facility] Final Result Performing Organization Address [facility]/ZIP Co de Phone Number [facility] [address] [place] [address], * THYROID STIM HORMONE, TSH (04/15/2024 9:13 AM SAND DRIER) Only the most recent of2 resultswithin the time period is included. TSH 1.540 0.358 - 3.74 uIU/ML 04/15/2024 10:12 AM SAND DRIER [facility] Comment: HIGH DOSES OF BIOTIN MAY INTERFERE WITH THIS TEST RESULT. CORRELATION TO CLINICAL HISTORY AND PRESENTATION RECOMMENDED. 04/15/2024 9:13 AM SAND DRIER Desiree Cannon MD LABORATORY Final Resul t [facility] [address] [place] [address], * MAGNESIUM (04/15/2024 9:13 AM SAND DRIER) Only the most recent of2 resultswithin the time period is included. MAGNESIUM 1.8 1.8 - 2.4 MG/DL 04/15/2024 10:12 AM SAND DRIER [facility] 04/15/2024 9:13 AM SAND DRIER Desiree Cannon MD LABORATORY Final Resul t [facility] [address] [place] [address], * CT HEAD WO CON (04/15/2024 2:21 AM SAND DRIER) Anatomical Region Laterality Modality Head Computed Tomogra phy 04/15/2024 2:24 AM SAND DRIER Impressions 04/15/2024 2:26 AM SAND DRIER IMPRESSION: 1. No evidence of acute intracranial pathology. 2. Age-related atrophy and mild small vessel ischemic changes. Referred By: Interpreted By: Sugar Wang MD, 04/15/2024 2:24 AM Narrative 04/15/2024 2:26 AM SAND DRIER [place] [id number] EXAMINATION: CT Head without INDICATION: Altered mental [...] Procedure Note Sugar Wang MD - 04/15/2024 [facility] [address] [place], [place] [address] EXAMINATION: CT Head without INDICATION: Altered mental [...] ACID W REFLEX (SEPSIS) (04/14/2024 10:51 PM SAND DRIER) LACTIC ACID VENOUS 1.4 0.4 - 2.0 MMOL/L 04/14/2024 11:32 PM SAND DRIER [facility] 04/14/2024 10:5 1 PM SAND DRIER Chris Gilmore MD,PHD LABORATORY Final Resu lt [facility] [address] [place] [address], * THYROXINE, FREE (FT4) (04/14/2024 10:51 PM SAND DRIER) FREE T4 0.99 0.76 - 1.46 NG/DL 04/14/2024 11:42 PM SAND DRIER [facility] 04/14/2024 10:5 1 PM SAND DRIER Chris Gilmore MD,PHD LABORATORY Final Resu lt Performing Organization Address [facility] Co de Phone Number [facility] [address] [place] [address], [place] [phone] * (ABNORMAL) PHOSPHORUS, INORGANIC PHOSPHATE (04/14/2024 10:51 PM SAND DRIER) PHOSPHORUS 2.1(L) 2.5 - 4.9 MG/DL 04/14/2024 11:42 PM SAND DRIER [facility] 04/14/2024 10:5 1 PM SAND DRIER us Chris Gilmore MD,PHD LABORATORY Final Resu lt Performing Organization Address [facility] Co de Phone Number [facility] [address] [place] [address], [place] [phone] * CORONAVIRUS (COVID 19) (04/14/2024 10:35 PM SAND DRIER) CORONAVIRUS SARS COV 2 RNA NEGATIVE NEGATIVE 04/14/2024 11:39 PM SAND DRIER [facility] Comment: NEGATIVE RESULTS DO [...] SARS-COV-2. SPECIMEN TYPE NASAL 04/14/2024 11:06 PM SAND DRIER [facility] NASAL STRUCTURE / Unknown 04/14/2024 10:35 PM SAND DRIER us Chris Gilmore MD,PHD MICROBIOLOGY - GENERAL ORD ERABLES Final Result Performing Organization Address [facility]/ZIP Co de Phone Number [facility] [address] [place] [address], [place] [phone] * INFLUENZA A & B, RAPID (04/14/2024 10:35 PM SAND DRIER) SPECIMEN TYPE NASAL 04/14/2024 11:11 PM SAND DRIER [facility] INFLUENZA A NEGATIVE NEGATIVE 04/14/2024 11:38 PM SAND DRIER [facility] INFLUENZA B NEGATIVE NEGATIVE 04/14/2024 11:38 PM SAND DRIER [facility] Comment: Interpretation: Negative for [...] NASOPHARYNGEAL SWAB / Unknown 04/14/2024 10:35 PM SAND DRIER us Chris Gilmore MD,PHD MICROBIOLOGY - GENERAL ORD ERABLES Final Result [facility] [address] [place] [address], [place] [phone] * PROCALCITONIN (PCT) (04/14/2024 10:34 PM SAND DRIER) Procalcitonin 0.43 0.00 - 0.49 NG/ML 04/15/2024 12:13 AM SAND DRIER [facility] 04/14/2024 10:3 4 PM SAND DRIER us Chris Gilmore MD,PHD LABORATORY Final Resu lt [facility] [address] [place] [address], * CULTURE BACTERIA, BLOOD (04/14/2024 10:34 PM SAND DRIER) SPEC DESCRIPTION BLOOD 04/14/2024 9:50 PM SAND DRIER [facility] SPECIAL REQUESTS NO SPECIAL REQUEST 04/14/2024 9:50 PM SAND DRIER [facility] CULTURE RESULT NO GROWTH 5 DAYS 04/19/2024 7:51 AM SAND DRIER [facility] BLOOD SPECIMEN OBTAINED FOR BLOOD CULTURE / Unknown 04/14/2024 10:34 PM SAND DRIER 04/14/2024 11:09 PM SAND DRIER Chris Gilmore MD,PHD MICROBIOLOGY - GENERAL ORD ERABLES Final Result [facility] [address] [place] [address], from Last 3 Months Insurance [employer] Advance Directives Documents on File Type Date Recorded Patient Cook Fruit Expl anation DNR (Do Not Resuscitate) Documentation 04/20/2024 2:47 PM Advance Directives and Livin g Will 04/20/2024 2:44 PM Power of Histologist Technologist 04/15/2024 2:14 AM POA 1 06-16-2023 * DNR (Latest Code Status on File) Date Activated Date Inactivated Comments 04/15/2024 4:26 AM 04/19/2024 6:26 PM * DNR Date Activated Date Inactivated Comments 04/15/2024 2:44 AM 04/15/2024 2:08 PM Care Teams Mailroom Associate Relationship Specialty Start Date End Date Willi Leiva MD [address] [place] [phone] PCP - General FAMILY PRACTICE 04/14/24
--- NOTE | 2024-06-26 04:48 | ED_ITS ---
HPI - General Adult General Chief complaint: Upper Respiratory Infection Stated complaint: flu-like symptoms Time Seen by Provider: 06/26/24 04:01 History of Present Illness HPI narrative: This is an 84-year-old male severe dementia presenting for not feeling well. The custodial called his family and said that he had been more lethargic than usual, and had low oxygen levels. The patient cannot provide any information to guide interview. His children are bedside says that he has severe dementia frequently does not know who they are and cannot tell you his name. Patient is DNR/DNI, medications okay Related Data Home Medications ?Medication ?Instructions ?Recorded ?Confirmed ?Last Taken ?Type aspirin 81 mg tablet,delayed 81 mg PO DAILY 05/25/19 11/08/22 11/08/22 09:00 History release (Adult Aspirin Regimen) cinnamon bark 500 mg capsule 500 mg PO DAILY 11/24/19 11/08/22 11/08/22 History (Cinnamon) multivitamin (Multiple Vitamins 1 tablet PO DAILY 11/24/19 11/08/22 11/08/22 History tablet) vitamin B complex (Super B-50 1 cap PO DAILY 11/24/19 11/08/22 11/08/22 History Complex capsule) melatonin 5 mg capsule 5 mg PO .qhs PRN Insomnia 06/18/20 11/08/22 11/07/22 History acetaminophen 650 mg 650 mg PO QID PRN Pain 08/29/22 11/08/22 Unknown History tablet,extended release (Arthritis Pain Relief (acetaminophen) ER) loratadine 10 mg tablet 10 mg PO DAILY PRN Allergy Symptoms 08/29/22 11/08/22 Unknown History polyethylene glycol 3350 17 17 g PO DAILY PRN Constipation 08/29/22 11/08/22 Unknown History gram/dose oral powder sodium chloride 0.65 % nasal spray 4 spray intranasal QID PRN Dry 08/29/22 11/08/22 Unknown History aerosol (Saline Nasal) Nasal Passages Calcium 600/Vit D 800 1 tab-cap PO DAILY 09/02/22 11/08/22 11/08/22 History omega-3 fatty acids-vitamin E 1 cap PO DAILY 11/08/22 11/08/22 11/08/22 History 1,000 mg capsule tamsulosin 0.4 mg capsule 0.4 mg PO DAILY 11/08/22 11/08/2223 History Allergies Allergy/AdvReac Type Severity Reaction Status Date / Time primidone (From Mysoline) AdvReac Severe Dizziness Verified 09/10/22 14:42 [facility] Past Medical History Medical History Benign prostatic hyperplasia Gastroesophageal reflux disease Dementia Hyperlipemia Hypertension Surgical History Surgical History History of removal of skin mole Family History Family History Mother Family history of respiratory disorder, Onset Age: 56 Patient's mother is Father Cerebrovascular accident, Onset Age: 89 Patient's father is Sibling Family history of heart disease in male family member before age 55, Onset Age: 79 Patient's brother is Other Hypertension Social History Social History Smoking status: Never smoker Alcohol intake: never Substance use: never Substance use type: does not use Lack of Transportation: No Lack of Food: Never True Current Housing: I Have Housing Concerned About Future Housing: No Difficulty Paying Gas/Electric Bills: No Difficulty Paying for Meds: No Currently Unemployed: No Education: Trade/Vocational Certificate Difficulty w/ Childcare or Family Care: No Living arrangements: assisted living Spiritual care concerns: No Exam 2 Narrative: APPEARANCE: No apparent distress. Response to voice, nonverbal Head: atraumatic. EYES: EOMI, NOSE: Atraumatic NECK: Trachea midline RESPIRATORY: No increased rate of breathing, CTAB CARDIOVASCULAR: RRR, no peripheral edema ABDOMINAL: Non-distended, soft nontender MUSCULOSKELETAl: No obvious deformities NEURO: Alert. Moving 4/4 extremities SKIN:: Clammy PSYCHIATRIC: Lethargic Course Vital Signs Vital signs: Vital Signs Temperature 98 F 06/26/24 03:41 Pulse Rate 66 06/26/24 03:41 Respiratory Rate 17 06/26/24 03:41 Blood Pressure 116/64 06/26/24 03:41 Pulse Oximetry 95 06/26/24 03:41 Oxygen Delivery Room Air 06/26/24 03:41 Temperature 98 F 06/26/24 03:41 Pulse Rate 87 06/26/24 06:35 Respiratory Rate 17 06/26/24 06:35 Blood Pressure 116/64 06/26/24 03:41 Pulse Oximetry 96 06/26/24 06:36 Oxygen Delivery Room Air 06/26/24 06:36 Medical Decision Making MDM Narrative Medical decision making narrative: -Course: 84-year-old with severe dementia presenting with not feeling well. On exam the patient is lethargic and responsive to voice. He cannot answer any questions. Goals of care were discussed with the family. They would like to pursue workup and do not want comfort measures this time. Patient will be DNR/DNI, medications okay. Sepsis workup positive for influenza. Patient given 1 L of LR started on Tamiflu. Patient's mental status is poor. Patient's condition and possibility of decline was discussed with the family. Patient will be admitted for further management. UA pending at admission. -DDX includes but is not limited to: Viral syndrome, pneumonia, flu, sepsis, dehydration, UTI Vital Signs Vital Signs: Vital Signs Temperature 98 F 06/26/24 03:41 Pulse Rate 66 06/26/24 03:41 Respiratory Rate 17 06/26/24 03:41 Blood Pressure 116/64 06/26/24 03:41 Pulse Oximetry 95 06/26/24 03:41 Oxygen Delivery Room Air 06/26/24 03:41 Temperature 98 F 06/26/24 03:41 Pulse Rate 87 06/26/24 06:35 Respiratory Rate 17 06/26/24 06:35 Blood Pressure 116/64 06/26/24 03:41 Pulse Oximetry 96 06/26/24 06:36 Oxygen Delivery Room Air 06/26/24 06:36 Lab Data 06/26/24 05:24 06/26/24 05:24 Labs: Lab Results 06/26/24 06/26/24 Range/Units 05:24 06:27 WBC 5.8 (4.5-10.0) K/mm3 RBC 4.13 L (4.6-6.20) M/mm3 Hgb 12.6 L (14.0-18.0) g/dL Hct 38.6 L (42.0-52.0) % MCV 93.5 (80-100) fl MCH 30.5 (26-34) pg MCHC 32.6 (32-36) g/dl RDW 14.6 H (11.5-14.5) % Plt Count 153 (150-375) k/mm3 MPV 10.8 H (7.4-10.4) fl Immature Gran % (Auto) 0.3 (0-0.5) % Neut % (Auto) 62.4 (45.5-73.1) % Lymph % (Auto) 17.2 L (18.3-44.2) % Bureau % (Auto) 17.9 H (2.6-8.5) % Eos % (Auto) 1.5 (0-4.4) % Baso % (Auto) 0.7 (0.2-1.2) % Lymph # (Auto) 1.00 (0.9-3.2) K/mm3 Bureau # (Auto) 1.0 H (0.1-0.6) K/mm3 Eos # (Auto) 0.1 (0-0.3) K/mm3 Baso # (Auto) 0.0 (0.0-0.1) K/mm3 Abs Immat Gran (auto) 0.02 (0.00-0.031) K/mm3 Absolute Neuts (auto) 3.6 (1.3-6.7) K/mm3 Absolute Nucleated RBC 0.000 (0.0-0.012) K/mm3 Nucleated RBC % 0.0 (0.0-0.2) % PT 15.2 H (11.1-14.7) Seconds INR 1.1 APTT 32.5 (22.3-36.8) Seconds Sodium 143 (137-145) mmol/L Potassium 3.9 (3.4-5.0) mmol/L Chloride 106 (98-107) mmol/L Carbon Dioxide 28 (22-30) mmol/L Anion Gap 9 (4-12) mmol/L BUN 17 (9-20) mg/dL Creatinine 1.36 H (0.7-1.3) mg/dL Estim Creat Clear Calc 34 ml/min Estimated GFR 50 L (59 - ) Glucose 125 H (65-110) mg/dL Lactic Acid 1.3 (0.7-2.0) mmol/L Calcium 9.1 (8.4-10.2) mg/dL Phosphorus 4.0 (2.5-4.5) mg/dL Magnesium 1.8 (1.6-2.3) mg/dL Total Bilirubin 0.6 (0.2-1.3) mg/dL AST 30 (17-59) U/L ALT 20 (6-50) U/L Alkaline Phosphatase 77 (38-126) U/L Troponin I < 0.012 (0.000-0.034) ng/mL Total Protein 8.0 (6.3-8.2) g/dL Albumin 4.2 (3.5-5.1) g/dL Lipase 58 (23-300) U/L TSH (Reflex) 1.660 (0.465-4.68) uIU/mL Urine Color Pending Urine Appearance Pending Urine pH Pending Ur Specific [place] Pending Urine Protein Pending Urine Glucose (UA) Pending Urine Ketones Pending Ur Blood (Man) Pending Urine Nitrate Pending Urine Bilirubin Pending Urine Urobilinogen Pending Leukocyte Esterase Rfl Pending Influenza A (RT-PCR) Positive A (Negative) Influenza B (RT-PCR) Negative (Negative) RSV (RT-PCR) Negative (Negative) SARS-CoV-2 RNA (RT-PCR) Negative (Negative) Discharge Plan Discharge Clinical Impression: Altered mental status, Dementia Patient Disposition: Still a Patient Condition: Stable Patient Language: Divehi Prescriptions: No Action multivitamin [Multiple Vitamins] Tablet 1 tablet PO DAILY cinnamon bark [Cinnamon] 500 mg capsule 500 mg PO DAILY vitamin B complex [Super B-50 Complex] Capsule 1 cap PO DAILY aspirin [Adult Aspirin Regimen] 81 mg tablet,delayed release (DR/EC) 81 mg PO DAILY melatonin 5 mg capsule 5 mg PO .qhs PRN (Reason: Insomnia) acetaminophen [Arthritis Pain Relief (acetam)] 650 mg tablet extended release 650 mg PO QID PRN (Reason: Pain) polyethylene glycol 3350 17 gram/dose powder 17 g PO DAILY PRN (Reason: Constipation) loratadine 10 mg tablet 10 mg PO DAILY PRN (Reason: Allergy Symptoms) Saline Nasal 0.65 % aerosol,spray 4 spray INTRANASAL QID PRN (Reason: Dry Nasal Passages) Calcium 600/Vit D 800 1 tab-cap PO DAILY omega-3 fatty acids-vitamin E 1,000 mg Capsule 1 cap PO DAILY tamsulosin 0.4 mg capsule 0.4 mg PO DAILY cefdinir 300 mg capsule 300 mg PO Q12H Qty: 10 0RF cephalexin 500 mg capsule 500 mg PO Q6H 7 Days Qty: 28 0RF mirtazapine 15 mg tablet 15 mg PO QHS Qty: 30 3RF finasteride 5 mg tablet 5 mg PO DAILY Qty: 90 1RF fluticasone propionate 50 mcg/actuation spray,suspension 1 spray INTRANASAL BID Qty: 16 0RF verapamil 240 mg capsule,ext rel. pellets 24 hr 240 mg PO DAILY Qty: 90 1RF donepezil [Aricept] 5 mg tablet 5 mg PO QHS Qty: 90 1RF pravastatin 20 mg tablet 20 mg PO DAILY Qty: 90 0RF Rx Instructions: TAKE 1 TABLET BY MOUTH EVERY DAY propranolol 20 mg tablet 20 mg PO Q12H Qty: 180 1RF Rx Instructions: TAKE 1 TABLET BY MOUTH EVERY 12 HOURS Follow-up/Referrals: Willi Leiva MD [Primary Care Provider] -
[2024-06-26 05:31] LABS: Basophils Percent Auto 0.7 % (0.2-1.2); Eosinophils Absolute Auto 0.1 K/mm3 (0-0.3); Eosinophils Percent Auto 1.5 % (0-4.4); Hematocrit 38.6 % (42.0-52.0); Hemoglobin 12.6 g/dL (14.0-18.0); Immature Granulocyte Absolute 0.02 K/mm3 (0.00-0.031); Immature Granulocyte Percent A 0.3 % (0-0.5); Lymphocytes Percent Auto 17.2 % (18.3-44.2); Mean Corpuscular HGB Conc 32.6 g/dl (32-36); Mean Corpuscular Hemoglobin 30.5 pg (26-34); Mean Corpuscular Volume 93.5 fl (80-100); Mean Platelet Volume 10.8 fl (7.4-10.4); Monocytes Percent Auto 17.9 % (2.6-8.5); Neutrophils Absolute Auto 3.6 K/mm3 (1.3-6.7); Neutrophils Percent Auto 62.4 % (45.5-73.1); Platelet Count Result 153 k/mm3 (150-375); Red Blood Count 4.13 M/mm3 (4.6-6.20); Red Cell Distribution Width 14.6 % (11.5-14.5); White Blood Count 5.8 K/mm3 (4.5-10.0)
[2024-06-26 05:39] LABS: Lactic Acid Reflex 1.3 mmol/L (0.7-2.0)
[2024-06-26 05:41] LABS: Alanine Aminotransferase 20 U/L (6-50); Albumin Level 4.2 g/dL (3.5-5.1); Alkaline Phosphatase 77 U/L (38-126); Anion Gap 9 mmol/L (4-12); Aspartate Amino Transferase 30 U/L (17-59); Bilirubin,Total 0.6 mg/dL (0.2-1.3); Blood Urea Nitrogen 17 mg/dL (9-20); Calcium 9.1 mg/dL (8.4-10.2); Carbon Dioxide 28 mmol/L (22-30); Chloride 106 mmol/L (98-107); Estimated CRCL calculation 34 ml/min; Estimated Glomerular Filt Rate 50; Glucose 125 mg/dL (65-110); Lipase 58 U/L (23-300); Magnesium 1.8 mg/dL (1.6-2.3); Potassium 3.9 mmol/L (3.4-5.0); Sodium 143 mmol/L (137-145)
[2024-06-26 05:44] LABS: INR 1.1; Prothrombin Time 15.2 Seconds (11.1-14.7)
[2024-06-26 05:45] LABS: Partial Thromboplastin Time 32.5 Seconds (22.3-36.8)
[2024-06-26 05:51] LABS: Troponin I < 0.012 ng/mL (0.000-0.034)
--- NOTE | 2024-06-26 06:03 | PC.NURSE ---
Added straight catheter order per ESTHELA Sherman at 0600 on 06/26/2024. Completed straight catheter with Whit.
[2024-06-26 06:05] LABS: Influenza A QL RT-PCR Positive (Negative); Influenza B QL RT-PCR Negative (Negative); RSV RNA, RT-PCR Negative (Negative); SARS-CoV-2 RNA PCR Negative (Negative)
[2024-06-26 06:35] VITALS: PULSE 87; RESP 17; O2SAT 96
[2024-06-26 06:36] VITALS: O2SAT 96
[2024-06-26 06:37] LABS: Add Urine Microscopic? YES; Appearance Urine Clear (Clear); Bacteria Urine None Seen /hpf; Bilirubin Urine Negative (Negative); Blood Urine Negative (Negative); Color Urine Dark Yellow (Yellow); Glucose Urine UA Negative (Negative); Ketones Urine Trace mg/dL (Negative); Leukocyte Esterase Ur Negative LEU/UL (Negative); Nitrate Urine Negative (Negative); Protein Urine 2+ mg/dL (Negative); RBC Urine 0-2 /hpf (0-2); Specific Grav Ur 1.024 (1.001-1.035); Squamous Epithelial Cell Urine None Seen /hpf (Few); WBC Urine 0-5 /hpf (0-3)
--- NOTE | 2024-06-26 06:40 | PC.NURSE ---
This RN spoke with Daina PROCTOR at [facility] and updated about pt POC
[2024-06-26] MEDS: LACTATED RINGERS 1,000 ML 999 ML IV CONT (06:46)
[2024-06-26 07:08] VITALS: PULSE 87; RESP 24; O2SAT 95
--- NOTE | 2024-06-26 07:52 | P.SS_ITS ---
Same Day Admit/Disch: HPI History of Present Illness Chief complaint: influenza Narrative: Erik Her is a 84 year old male with medical History of severe dementia, GERD, hyperlipidemia, vit d deficiency, HTN, CKD stage III, BPH with LUTS, tremors that presented to the the emergency department with reports of not feeling well. According to family at bedside patient is unable to recall family, place or time, he is often responsive to his name, he can not state his name but not often his date of . According to family patient was not feeling well at the local nursing facility, they have had influenza a here. Patient was worked up in our emergency department for sepsis to rule out viral syndrome, UTI or other possible causes. Emergency department workup noted with a count of 5.8, hemoglobin 12.6, 0.6 53 BUN 17, creatinine 1.36. GFR was 50. Continues patient's BUN was 26 creatinine was 1.0 with a GFR that was low at 40. Chest x-ray was negative for any abnormality, CT head noted no acute abnormalities cemented no chronic changes which is correlating with his dementia. UA was normal with no leukocytes, no nitrates, no bacteria. Patient not requiring any oxygen, sats 96? to 98% on room air. Patient is afebrile. patient increasingly of the lower in the emergency department however his lactic acid turned to be 1.3. Patient was started on Tamiflu for his influenza A positive result. [facility] Past Medical History Medical History Benign prostatic hyperplasia Gastroesophageal reflux disease Dementia Hyperlipemia Hypertension Surgical History Surgical History History of removal of skin mole Family History Family History Mother Family history of respiratory disorder, Onset Age: 56 Patient's mother is Father Cerebrovascular accident, Onset Age: 89 Patient's father is Sibling Family history of heart disease in male family member before age 55, Onset Age: 79 Patient's brother is Other Hypertension Social History Social History Smoking status: Never smoker Alcohol intake: never Substance use: never Substance use type: does not use Lack of Transportation: No Lack of Food: Never True Current Housing: I Have Housing Concerned About Future Housing: No Difficulty Paying Gas/Electric Bills: No Difficulty Paying for Meds: No Currently Unemployed: No Education: Trade/Vocational Certificate Difficulty w/ Childcare or Family Care: No Living arrangements: assisted living Spiritual care concerns: No Same Day Admit/Disch: Med Pre-admit Medications Home Medications ?Medication ?Instructions ?Recorded ?Confirmed ?Type aspirin 81 mg tablet,delayed 81 mg PO DAILY 05/25/19 11/08/22 History release (Adult Aspirin Regimen) cinnamon bark 500 mg capsule 500 mg PO DAILY 11/24/19 11/08/22 History (Cinnamon) multivitamin (Multiple Vitamins 1 tablet PO DAILY 11/24/19 11/08/22 History tablet) vitamin B complex (Super B-50 1 cap PO DAILY 11/24/19 11/08/22 History Complex capsule) melatonin 5 mg capsule 5 mg PO .qhs PRN Insomnia 06/18/20 11/08/22 History acetaminophen 650 mg 650 mg PO QID PRN Pain 08/29/22 11/08/22 History tablet,extended release (Arthritis Pain Relief (acetaminophen) ER) loratadine 10 mg tablet 10 mg PO DAILY PRN Allergy Symptoms 08/29/22 11/08/22 History polyethylene glycol 3350 17 17 g PO DAILY PRN Constipation 08/29/22 11/08/22 History gram/dose oral powder sodium chloride 0.65 % nasal spray 4 spray intranasal QID PRN Dry 08/29/22 11/08/22 History aerosol (Saline Nasal) Nasal Passages Calcium 600/Vit D 800 1 tab-cap PO DAILY 09/02/22 11/08/22 History mirtazapine 15 mg tablet 15 mg PO QHS #30 tabs 10/08/22 11/08/22 Rx finasteride 5 mg tablet 5 mg PO DAILY #90 tabs 10/31/22 11/08/22 Rx fluticasone propionate 50 1 spray intranasal BID #16 grams 11/03/22 11/08/22 Rx mcg/actuation nasal spray,suspension omega-3 fatty acids-vitamin E 1 cap PO DAILY 11/08/22 11/08/22 History 1,000 mg capsule tamsulosin 0.4 mg capsule 0.4 mg PO DAILY 11/08/22 11/08/22 History cefdinir 300 mg capsule 300 mg PO Q12H #10 caps 11/10/22 Rx donepezil 5 mg tablet (Aricept) 5 mg PO QHS #90 tabs 12/01/22 Rx pravastatin 20 mg tablet 20 mg PO DAILY #90 tabs 12/01/22 Rx propranolol 20 mg tablet 20 mg PO Q12H #180 tabs 12/01/22 Rx verapamil 240 mg 24 hr 240 mg PO DAILY #90 caps 12/01/22 Rx capsule,extended release cephalexin 500 mg capsule 500 mg PO Q6H 7 days #28 caps 03/22/23 Rx Review of Systems Review of Systems All systems reviewed & are unremarkable except as noted in HPI and below Constitutional Constitutional: Reports as per HPI and Reports no additional constitutional complaints Eyes Eyes: Reports as per HPI and Reports no additional eye complaints ENT Reports system reviewed and no additional complaints, except as documented Cardiovascular Cardiovascular: Reports as per HPI and Reports no additional cardiovascular complaints Respiratory Respiratory: Reports as per HPI, Reports no additional respiratory complaints and Reports cough Gastrointestinal Gastrointestinal: Reports as per HPI and Reports no additional gastrointestinal complaints Genitourinary Genitourinary: Reports no additional male genitourinary complaints and Reports as per HPI Musculoskeletal Musculoskeletal: Reports no additional musculoskeletal complaints and Reports as per HPI Integumentary/Breasts Skin/Breast: Reports system reviewed and no additional complaints, except as docu Neurologic Reports system reviewed and no additional complaints, except as documented Psychiatric Psychiatric: Reports no additional psychiatric complaints Exam Const: General: cooperative, no acute distress, confusion (to his normal state) and well nourished Nutritional Appearance: average body habitus Orientation/consciousness: oriented to person (which is his normal state) Limitations: altered mental status (advanced dementia) HENMT: Head: normal to inspection and normocephalic Eyes: General: appearance normal, both eyes and all related structures Neck: Neck: normal visual inspection, full ROM and no lymphadenopathy Chest: Chest palpation & inspection: normal inspection of the chest Resp: Effort & Inspection: normal respiratory effort and Actively coughing dry Auscultation: clear to auscultation bilaterally Cardio: Jugular venous distension: no JVD Palpation: normal PMI Rate: regular rate Rhythm: regular rhythm Heart sounds: S1 normal heart sound present and S2 normal heart sound present GI: Inspection: normal to inspection GI Palp: Yes Soft to palpation Auscultation: normal bowel sounds Skin: General skin exam: normal color and no rashes or lesions noted Neuro: General: oriented to person and Unable to assess gait (patient normal gait is very limited with moderate assistance) Speech: normal speech Extrem: General: normal to inspection and full ROM Psych: Affect: normal affect Attitude: cooperative DS: Data Data Completed and Pending Labs on day of discharge: Labs from last 24 hours 06/26/24 06/26/24 06/26/24 07:26 06:27 05:24 WBC 5.8 RBC 4.13 L Hgb 12.6 L Hct 38.6 L MCV 93.5 MCH 30.5 MCHC 32.6 RDW 14.6 H Plt Count 153 MPV 10.8 H Immature Gran % (Auto) 0.3 Neut % (Auto) 62.4 Lymph % (Auto) 17.2 L [place] % (Auto) 17.9 H Eos % (Auto) 1.5 Baso % (Auto) 0.7 Lymph # (Auto) 1.00 [place] # (Auto) 1.0 H Eos # (Auto) 0.1 Baso # (Auto) 0.0 Abs Immat Gran (auto) 0.02 Absolute Neuts (auto) 3.6 Absolute Nucleated RBC 0.000 Nucleated RBC % 0.0 PT 15.2 H INR 1.1 APTT 32.5 Sodium 143 Potassium 3.9 Chloride 106 Carbon Dioxide 28 Anion Gap 9 BUN 17 Creatinine 1.36 H Estim Creat Clear Calc 34 Estimated GFR 50 L Glucose 125 H Lactic Acid 1.3 Calcium 9.1 Phosphorus 4.0 Magnesium 1.8 Total Bilirubin 0.6 AST 30 ALT 20 Alkaline Phosphatase 77 Troponin I Pending < 0.012 Total Protein 8.0 Albumin 4.2 Lipase 58 TSH (Reflex) 1.660 Urine Color Dark yellow Urine Appearance Clear Urine pH 5.0 Ur Specific [place] 1.024 Urine Protein 2+ H Urine Glucose (UA) Negative Urine Ketones Trace H Ur Blood (Man) Negative Urine Nitrate Negative Urine Bilirubin Negative Urine Urobilinogen 1.0 Leukocyte Esterase Rfl Negative Urine RBC 0-2 Urine WBC 0-5 Ur Squamous Epith Cells None seen Urine Bacteria None seen Urine Casts 3-5 Influenza A (RT-PCR) Positive A Influenza B (RT-PCR) Negative RSV (RT-PCR) Negative SARS-CoV-2 RNA (RT-PCR) Negative Imaging Radiologist's impression: Chest x-ray - one view - no acute abnormality CT head - FINDINGS: The ventricles are enlarged. The dilatation of the ventricles is proportional to the degree of sulcal prominence, not uncommon in the senescent brain. Decreased attenuation is identified within the periventricular white matter, likely secondary to microvascular ischemic disease, in a patient of this age. There is no mass, mass effect or midline shift. There is no abnormal extra-axial fluid collection or intracranial hemorrhage. Visualized paranasal sinuses are clear. The mastoid air cells are well aerated. No acute displaced fractures within the overlying cranium. Impression: No acute intracranial hemorrhage or suspicious mass effect. DS: Summary Hospital Course Reason for hospitalization: influenza A positive Hospital Course: Erik Her is a 84 year old male with medical History of severe dementia, GERD, hyperlipidemia, vit d deficiency, HTN, CKD stage III, BPH with LUTS, tremors that presented to the the emergency department with reports of not feeling well. According to family at bedside patient is unable to recall family, place or time, he is often responsive to his name, he can not state his name but not often his date of . According to family patient was not feeling well at the local nursing facility, they have had influenza a here. Patient was worked up in our emergency department for sepsis to rule out viral syndrome, UTI or other possible causes. Emergency department workup noted with a count of 5.8, hemoglobin 12.6, 0.6 53 BUN 17, creatinine 1.36. GFR was 50. Continues patient's BUN was 26 creatinine was 1.0 with a GFR that was low at 40. Chest x-ray was negative for any abnormality, CT head noted no acute abnormalities cemented no chronic changes which is correlating with his demen tia. UA was normal with no leukocytes, no nitrates, no bacteria. Patient not requiring any oxygen, sats 96? to 98% on room air. Patient is afebrile. patient increasingly of the lower in the emergency department however his lactic acid turned to be 1.3. Patient was started on Tamiflu for his influenza A positive result. Patient was resting comfortably this a.m., According to family he is in his normal state. Family at bedside reports they were under the understanding he was going to be discharged back to the group home, they are agreeable that he should go back to the group home since he is not wearing any oxygen, he is afebrile, and his labs are actually better than what they were in October. Instructed family we will continue Tamiflu, Robitussin cough syrup as needed for cough, and Tylenol for fever, body aches. Internal family's questions to his satisfaction, they are agreeable to this plan. Patient to be discharged back to [place]. Status at Discharge Functional status at discharge: wheelchair bound (per normal ) Overall status at discharge: patient is back to baseline Time Spent with Patient Time attestation: Total time spent providing and/or coordinating discharge services: Time spent: Greater than 30 minutes (40 minutes) DS: Admitting Diagnosis Discharge Date 06/26/2024 Admitting Diagnosis influenza a Discharge Plan Discharge Attending physician on discharge: Linda Franco Discharging Clinician: Linda Franco Activity: as tolerated Diet: as tolerated Discharge Instructions: Increase fluids, rest, continue Tamiflu b.i.d. for 5 days, will continue with Tylenol every 4 hours as needed for fever. Robitussin cough medication as instructed, q.4 hours p.r.n.. Return to the emergency department with shortness of breath, chest pain, shortness and symptoms of distress Patient Language: Kazakh Discharge Medications: New oseltamivir [Tamiflu] 30 mg Capsule 30 mg PO Q12HR 5 Days Qty: 10 0RF Robitussin Cough and Cold CF 2.5-5-50 mg/5 mL liquid 15 ml PO Q4H PRN (Reason: cold symptoms) Qty: 118 0RF Rx Instructions: take 15 ml po q4hr prn for cough Continued multivitamin [Multiple Vitamins] Tablet 1 tablet PO DAILY cinnamon bark [Cinnamon] 500 mg capsule 500 mg PO DAILY vitamin B complex [Super B-50 Complex] Capsule 1 cap PO DAILY aspirin [Adult Aspirin Regimen] 81 mg tablet,delayed release (DR/EC) 81 mg PO DAILY melatonin 5 mg capsule 5 mg PO .qhs PRN (Reason: Insomnia) acetaminophen [Arthritis Pain Relief (acetam)] 650 mg tablet extended release 650 mg PO QID PRN (Reason: Pain) polyethylene glycol 3350 17 gram/dose powder 17 g PO DAILY PRN (Reason: Constipation) loratadine 10 mg tablet 10 mg PO DAILY PRN (Reason: Allergy Symptoms) Saline Nasal 0.65 % aerosol,spray 4 spray INTRANASAL QID PRN (Reason: Dry Nasal Passages) Calcium 600/Vit D 800 1 tab-cap PO DAILY omega-3 fatty acids-vitamin E 1,000 mg Capsule 1 cap PO DAILY tamsulosin 0.4 mg capsule 0.4 mg PO DAILY mirtazapine 15 mg tablet 15 mg PO QHS Qty: 30 3RF finasteride 5 mg tablet 5 mg PO DAILY Qty: 90 1RF fluticasone propionate 50 mcg/actuation spray,suspension 1 spray INTRANASAL BID Qty: 16 0RF verapamil 240 mg capsule,ext rel. pellets 24 hr 240 mg PO DAILY Qty: 90 1RF donepezil [Aricept] 5 mg tablet 5 mg PO QHS Qty: 90 1RF pravastatin 20 mg tablet 20 mg PO DAILY Qty: 90 0RF Rx Instructions: TAKE 1 TABLET BY MOUTH EVERY DAY propranolol 20 mg tablet 20 mg PO Q12H Qty: 180 1RF Rx Instructions: TAKE 1 TABLET BY MOUTH EVERY 12 HOURS Discontinued cefdinir 300 mg capsule 300 mg PO Q12H Qty: 10 0RF cephalexin 500 mg capsule 500 mg PO Q6H 7 Days Qty: 28 0RF Date of admission: 06/26/24 06:48 Primary Care Provider: Willi Leiva Admitting Provider: Karrie Hale Attending physician on admission: Karrie Hale Condition: Stable Hospitalist MIPS Advance Care Plan I have confirmed that the patient's Advanced Care Plan is present, code status is documented, or surrogate decision maker is listed in patient medical record.: Yes Medication Reconciliation I have utilized all available resources to obtain, update and review the patients current medications (includes all prescriptions, OTC, herbals, cannabis, and nutritional supplements).: Yes
[2024-06-26 07:56] LABS: Troponin I < 0.012 ng/mL (0.000-0.034)
[2024-06-26] MEDS: OSELTAMIVIR PHOSPHATE 75 MG CAPSULE PO (08:18)
--- OUTSIDE RECORDS SUMMARY | 2024-06-26 10:02 | XMS_ITS | Clinical Summary ---
Author Organization [facility] Address [address] [place] [address] Care Team Providers Care Water Pollution Scientist Name Role Phone Willi Leiva MD Primary Care Provider [phone] Allergies Active Allergy Reactions Criticality Noted Date [...] mouth as needed (Constipation). 4 Active B Igfqgjj-N-Zeujj Acid Tab Take 1 tablet by mouth daily. 4 Active Calcium Carbonate-Vitami n D (CALCIUM 600 + D OR) Take 1 tablet by mouth daily. 4 Active Active Problems Problem Noted Date Diagnosed Date Sepsis ([facility]) 04/15/2024 Encounters Date Type Department Care Team Description 04/27/2024 11:23 AM GEOSPATIAL TECHNICIAN - 04/27/2024 3:06 PM GEOSPATIAL TECHNICIAN Emergency [facility] [place] [address] Tab Gonzalez PA-C Urinary Symptoms; Blood In Urine Discharge Disposition: Home or Self Care (Routine Discharge) 04/27/2024 Travel 04/15/2024 2:14 AM GEOSPATIAL TECHNICIAN - 04/19/2024 4:16 PM GEOSPATIAL TECHNICIAN Hospital Encounter [facility] Med/Surg [address] [place] [address] Chris Gilmore MD,PHD Desiree Cannon MD Doan, Melissa K, PA Duenas, Vincent J, MD Urinary Symptoms Discharge Disposition: Care Home Facility 04/15/2024 Travel 04/14/2024 9:27 PM GEOSPATIAL TECHNICIAN - 04/15/2024 2:14 AM GEOSPATIAL TECHNICIAN Hospital Encounter [facility] [place] [address] Chris Gilmore MD,PHD Desiree Cannon MD Non-Staff, [...] drink = 0.6 oz pur e alcohol) [facility] Utilities Answer Date Recorded In the past 12 months has th e electric, gas, oil, or water [employer] threatened to shut off services in [...] any time in the past 12 m [facility], were you homeless or living in a senior care (including now)? No 04/15/2024 Sex and Gender Information Value Date Recorded Sex Assigned at Not on file Legal Sex Male 1:53 AM GEOSPATIAL TECHNICIAN Gender Identity Not on file Sexual Orientation Not on file Last Filed Vital Signs Vital Sign Reading Time Taken Comments Blood Pressure 162/93 04/27/2024 2:01 PM GEOSPATIAL TECHNICIAN Pulse 60 04/27/2024 2:21 PM GEOSPATIAL TECHNICIAN Temperature 36.6 C (97.9 F) 04/27/2024 11:03 AM GEOSPATIAL TECHNICIAN Respiratory Rate 17 04/27/2024 2:21 PM GEOSPATIAL TECHNICIAN Oxygen Saturation 92% 04/27/2024 2:21 PM GEOSPATIAL TECHNICIAN Inhaled Oxygen Concentration - - Weight 72.6 kg (160 lb 0.9 oz) 04/18/2024 6:03 A M GEOSPATIAL TECHNICIAN Height 172.7 cm (5' 8 ) 04/27/2024 11:03 AM GEOSPATIAL TECHNICIAN Body Mass Index 24.34 04/15/2024 4:44 AM GEOSPATIAL TECHNICIAN Plan of Treatment Health Maintenance Due Date [...] Comments URINE BACTERIA CULTURE STAT 11:36 AM GEOSPATIAL TECHNICIAN HC URINALYSIS AUTO W/O MICRO STAT 04/27/2024 11:36 AM GEOSPATIAL TECHNICIAN COMPREHENSIVE METABOLIC PANEL STAT 04/27/2024 11:36 AM GEOSPATIAL TECHNICIAN CBC W/DIFF AUTOMATED STAT 04/27/2024 11:36 AM GEOSPATIAL TECHNICIAN CBC W/DIFF AUTOMATED Routine 04/18/2024 5:55 AM GEOSPATIAL TECHNICIAN BASIC METABOLIC PANEL Routine 04/18/2024 5:55 AM GEOSPATIAL TECHNICIAN CBC W/DIFF AUTOMATED Routine 04/17/2024 5:00 AM GEOSPATIAL TECHNICIAN BASIC METABOLIC PANEL Routine 04/17/2024 5:00 AM GEOSPATIAL TECHNICIAN XR CHEST PORTABLE Today 04/16/2024 12: 00 PM GEOSPATIAL TECHNICIAN CBC W/DIFF AUTOMATED Routine 04/16/2024 5:49 AM GEOSPATIAL TECHNICIAN BASIC METABOLIC PANEL Routine 04/16/2024 5:49 AM GEOSPATIAL TECHNICIAN FOLIC ACID SERUM Routine 04/15/2024 9:13 AM GEOSPATIAL TECHNICIAN VITAMIN B-12 Routine 04/15/2024 9:13 AM GEOSPATIAL TECHNICIAN BASIC METABOLIC PANEL Routine 04/15/2024 9:13 AM GEOSPATIAL TECHNICIAN THYROID STIM HORMONE TSH Routine 04/15/2024 9:13 AM GEOSPATIAL TECHNICIAN HEMOGLOBIN, GLYCOSYLATED Routine 04/15/2024 9:13 AM GEOSPATIAL TECHNICIAN MAGNESIUM Routine 04/15/2024 9:13 AM GEOSPATIAL TECHNICIAN PROTHROMBIN TIME, VENOUS Routine 04/15/2024 9:13 AM GEOSPATIAL TECHNICIAN CBC W/DIFF AUTOMATED Routine 04/15/2024 9:[address] HEAD WO CON STAT 04/15/2024 2:21 AM GEOSPATIAL TECHNICIAN URINE BACTERIA CULTURE STAT 11:02 PM GEOSPATIAL TECHNICIAN HC URINALYSIS AUTO W/O MICRO STAT 04/14/2024 11:02 PM GEOSPATIAL TECHNICIAN PHOSPHORUS, INORGANIC PHOSPHATE STAT 04/14/2024 10:51 PM GEOSPATIAL TECHNICIAN MAGNESIUM STAT 04/14/2024 10:51 PM GEOSPATIAL TECHNICIAN THYROXINE, FREE (FT4) STAT 04/14/2024 10:51 PM GEOSPATIAL TECHNICIAN THYROID STIM HORMONE TSH STAT 04/14/2024 10:51 PM GEOSPATIAL TECHNICIAN LACTIC ACID W REFLEX (SEPSIS) STAT 04/14/2024 10:51 PM GEOSPATIAL TECHNICIAN COMPREHENSIVE METABOLIC PANEL STAT 04/14/2024 10:51 PM GEOSPATIAL TECHNICIAN CBC W/DIFF AUTOMATED STAT 04/14/2024 10:51 PM GEOSPATIAL TECHNICIAN INFLUENZA A & B STAT 04/14/2024 10:35 PM GEOSPATIAL TECHNICIAN CORONAVIRUS (COVID 19) STAT 10:35 PM GEOSPATIAL TECHNICIAN CULTURE, BACTERIA, BLOOD STAT 04/14/2024 10:34 PM GEOSPATIAL TECHNICIAN PROCALCITONIN (PCT) STAT 04/14/2024 1 0:34 PM GEOSPATIAL TECHNICIAN XR CHEST PORTABLE STAT 04/14/2024 10: 00 PM GEOSPATIAL TECHNICIAN from Last 3 Months Results * URINALYSIS (04/27/2024 11:36 AM GEOSPATIAL TECHNICIAN) Only the most recent of2 resultswithin the time period is included. SPECIMEN TYPE URINE CLEAN CATCH 04/27/2024 1:32 PM GEOSPATIAL TECHNICIAN [facility] COLOR (U) YELLOW 04/27/2024 1:46 PM GEOSPATIAL TECHNICIAN [facility] TRANSPARENCY CLEAR 04/27/2024 1:46 PM GEOSPATIAL TECHNICIAN [facility] SPECIFIC GRAVITY (U) 1.019 1.001 - 1.030 04/27/2024 1:46 PM GEOSPATIAL TECHNICIAN [facility] U PH 5.5 5.0 - 9.0 04/27/2024 1:46 PM GEOSPATIAL TECHNICIAN [facility] LEUKOCYTES (U) NEGATIVE NEGATIVE 04/27/2024 1:46 PM GEOSPATIAL TECHNICIAN [facility] NITRITES NEGATIVE NEGATIVE 04/27/2024 1:46 PM GEOSPATIAL TECHNICIAN [facility] PROTEIN RANDOM (U) 20 <30 MG/DL 04/27/2024 1:46 PM GEOSPATIAL TECHNICIAN [facility] GLUCOSE (U) NORMAL NORMAL MG/DL 04/27/2024 1:46 PM GEOSPATIAL TECHNICIAN [facility] KETONES MG/DL (U) NEGATIVE NEGATIVE MG/DL 04/27/2024 1:46 PM GEOSPATIAL TECHNICIAN [facility] UROBILINOGEN NORMAL NORMAL MG/DL 04/27/2024 1:46 PM GEOSPATIAL TECHNICIAN [facility] BILIRUBIN (U) NEGATIVE NEGATIVE MG/DL 04/27/2024 1:46 PM GEOSPATIAL TECHNICIAN [facility] BLOOD (U) NEGATIVE NEGATIVE 04/27/2024 1:[address] [facility] URINE SPECIMEN OBTAINED BY CLEAN CATCH PROCEDURE / Unknown 04/27/2024 11:36 AM GEOSPATIAL TECHNICIAN us Joel Hardin PHOTO TECHNICIAN URINE ORDERABLES Final Result [facility] [address] [place] [address], [place] [phone] * CULTURE URINE (04/27/2024 11:36 AM GEOSPATIAL TECHNICIAN) Only the most recent of2 resultswithin the time period is included. SPEC DESCRIPTION URINE CLEAN CATCH 04/27/2024 1:32 PM GEOSPATIAL TECHNICIAN [facility] SPECIAL REQUESTS NO SPECIAL REQUEST 04/27/2024 1:32 PM GEOSPATIAL TECHNICIAN [facility] CULTURE RESULT NO GROWTH 2 DAYS 04/29/2024 9:07 AM GEOSPATIAL TECHNICIAN [facility] URINE SPECIMEN OBTAINED BY CLEAN CATCH PROCEDURE / Unknown 04/27/2024 11:36 AM GEOSPATIAL TECHNICIAN 04/27/2024 1:34 PM GEOSPATIAL TECHNICIAN us Joel Hardin NP MICROBIOLOGY - GENERAL ORDERAB LES Final Result [facility] [address] [place] [address], * (ABNORMAL) COMPREHENSIVE METABOLIC PANEL (04/27/2024 11:36 AM GEOSPATIAL TECHNICIAN) Only the most recent of2 resultswithin the time period is included. GLUCOSE 100(H) 70 - 99 MG/DL 04/27/2024 12:[address] [facility] BUN 19(H) 7 - 18 MG/DL 04/27/2024 12:[address] [facility] CREATININE S/P/B 1.54(H) 0.7 - 1.3 MG/DL 04/27/2024 12:14 PM GEOSPATIAL TECHNICIAN [facility] SODIUM S/P/B 142 136 - 145 MMOL/L 04/27/2024 12:[address] [facility] POTASSIUM S/P/B 3.8 3.5 - 5.1 MMOL/L 04/27/2024 12:[address] [facility] CHLORIDE S/P/B 109 97 - 115 MMOL/L 04/27/2024 12:[address] [facility] CO2 31.3 21 - 32 MMOL/L 04/27/2024 12:[address] [facility] CALCIUM S/P/B 9.3 8.5 - 10.1 MG/DL 04/27/2024 12:[address] [facility] BILIRUBIN TOTAL S/P/B 0.6 0.2 - 1.2 MG/DL 04/27/2024 12:[address] [facility] Comment: THIS ASSAY IS NOT RECOMMENDED FOR PATIENTS UNDERGOING TREATMENT WITH ELTROMBOPAG DUE TO THE POTENTIAL FOR FALSELY ELEVATED RESULTS. TOTAL PROTEIN S/P/B 7.5 6.4 - 8.2 G/DL 04/27/2024 12:[address] [facility] ALBUMIN S/P/B 3.3(L) 3.4 - 5.0 G/DL 04/27/2024 12:[address] [facility] AST 20 15 - 37 U/L 04/27/2024 12:[address] [facility] ALT 45 16 - 60 U/L 04/27/2024 12:[address] [facility] ALKALINE PHOSPHATASE S/P/B 95 50 - 136 U/L 04/27/2024 12:[address] [facility] ANION GAP 1.7(L) 2 - 10 MMOL/L 04/27/2024 12:[address] [facility] BUN CREATININE RATIO 12.3 6 - 26 04/27/2024 12:[address] [facility] A/G RATIO 0.8(L) 1.0 - 2.0 RATIO 04/27/2024 12:[address] [facility] GFR ESTIMATE 44(L) >90 ML/MIN/1.7 3 M2 04/27/2024 12:[address] [facility] Comment: NOTE: eGFR is not calculated for patients <18 years of age or gender unknown. This is an estimated GFR calculation using the new CKD EPI creatinine equation without race and so does not require a correction factor for race. This estimated GFR should not be used for calculating drug doses. 04/27/2024 11:3 6 AM GEOSPATIAL TECHNICIAN us Joel Radha Hardin NP LABORATORY Final Result [facility] [address] [place] [address], * (ABNORMAL) CBC W/DIFF AUTOMATED (04/27/2024 11:36 AM GEOSPATIAL TECHNICIAN) Only the most recent of6 resultswithin the time period is included. WBC 8.03 4.5 - 11.0 x10'3/uL 04/27/2024 12:10 PM GEOSPATIAL TECHNICIAN [facility] RBC 4.74 4.70 - 6.10 x10'6/uL 04/27/2024 12:10 PM GEOSPATIAL TECHNICIAN [facility] HGB 13.8(L) 14.0 - 18.0 G/DL 04/27/2024 12:[address] [facility] HCT 42.6(L) 43.0 - 54.0 % 04/27/2024 12:10 PM GEOSPATIAL TECHNICIAN [facility] MCV 89.9 80.0 - 94.0 FL 04/27/2024 12:10 PM GEOSPATIAL TECHNICIAN [facility] MCH 29.1 27.0 - 31.0 PG 04/27/2024 12:10 PM GEOSPATIAL TECHNICIAN [facility] MCHC 32.4 32.0 - 36.0 G/DL 04/27/2024 12:[address] [facility] RDW 14.6(H) 11.5 - 14.5 % 04/27/2024 12:[address] [facility] PLT 314 130 - 400 x10'3/uL 04/27/2024 12:10 PM GEOSPATIAL TECHNICIAN [facility] MPV 10.7 9.3 - 12.2 FL 04/27/2024 12:[address] [facility] DIFFERENTIAL TYPE AUTOMATED DIFFERENTIAL 04/27/2024 12:10 PM GEOSPATIAL TECHNICIAN [facility] NEUTROPHILS % 51.9 % 04/27/2024 12:10 PM GEOSPATIAL TECHNICIAN [facility] LYMPHOCYTES % 33.3 % 04/27/2024 12:10 PM GEOSPATIAL TECHNICIAN [facility] MONOCYTES % 11.0 % 04/27/2024 12:10 PM GEOSPATIAL TECHNICIAN [facility] EOSINOPHILS 2.7 % 04/27/2024 12:10 PM GEOSPATIAL TECHNICIAN [facility] BASOPHILS 0.6 % 04/27/2024 12:10 PM GEOSPATIAL TECHNICIAN [facility] IMMATURE GRANS % 0.5 % 04/27/20 12:10 PM GEOSPATIAL TECHNICIAN [facility] ABS. NEUTROPHILS 4.17 1.80 - 7.70 x10'3/uL 04/27/2024 12:10 PM GEOSPATIAL TECHNICIAN [facility] ABS. LYMPHOCYTES 2.67 1.00 - 4.80 x10'3/uL 04/27/2024 12:10 PM GEOSPATIAL TECHNICIAN [facility] ABS. MONOCYTES 0.88(H) 0.30 - 0.82 x10'3/uL 04/27/2024 12:10 PM GEOSPATIAL TECHNICIAN [facility] ABS. EOSINOPHILS 0.22 0.04 - 0.54 x10'3/uL 04/27/2024 12:10 PM GEOSPATIAL TECHNICIAN [facility] ABS. BASOPHILS 0.05 0.01 - 0.08 x10'3/uL 04/27/2024 12:[address] [facility] ABS. IMMATURE GRANULOCYTES 0.04 0.00 - 0.49 x10'3/uL 04/27/2024 12:[address] [facility] 04/27/2024 11:3 6 AM GEOSPATIAL TECHNICIAN Joel Radha Hardin PHOTO TECHNICIAN LABORATORY Final Result [facility] [address] [place] [address], [place] [phone] * (ABNORMAL) BASIC METABOLIC PANEL (04/18/2024 5:55 AM GEOSPATIAL TECHNICIAN) Only the most recent of4 resultswithin the time period is included. GLUCOSE 111(H) 70 - 99 MG/DL 04/18/2024 6:[address] [facility] BUN 14 7 - 18 MG/DL 04/18/2024 6:[address] [facility] CREATININE S/P/B 1.16 0.7 - 1.3 MG/DL 04/18/2024 6:[address] [facility] SODIUM S/P/B 141 136 - 145 MMOL/L 04/18/2024 6:[address] [facility] POTASSIUM S/P/B 3.4(L) 3.5 - 5.1 MMOL/L 04/18/2024 6:[address] [facility] CHLORIDE S/P/B 111 97 - 115 MMOL/L 04/18/2024 6:[address] [facility] CO2 27.1 21 - 32 MMOL/L 04/18/2024 6:[address] [facility] CALCIUM S/P/B 8.2(L) 8.5 - 10.1 MG/DL 04/18/2024 6:[address] [facility] ANION GAP 2.9 2 - 10 MMOL/L 04/18/2024 6:[address] [facility] BUN CREATININE RATIO 12.1 6 - 26 04/18/2024 6:34 AM GEOSPATIAL TECHNICIAN [facility] GFR ESTIMATE 61(L) >90 ML/MIN/1.7 3 M2 04/18/2024 6:34 AM GEOSPATIAL TECHNICIAN [facility] Comment: NOTE: eGFR is not calculated for patients <18 years of age or gender unknown. This is an estimated GFR calculation using the new CKD EPI creatinine equation without race and so does not require a correction factor for race. This estimated GFR should not be used for calculating drug doses. 04/18/2024 5:55 AM GEOSPATIAL TECHNICIAN Kelly LEHMAN LABORATORY Final Result [facility] [address] [place] [address], * XR CHEST PORTABLE (04/16/2024 12:00 PM GEOSPATIAL TECHNICIAN) Only the most recent of2 resultswithin the time period is included. Anatomical Region Laterality Modality Chest Radiographic Christy ging 04/16/2024 12:2 3 PM GEOSPATIAL TECHNICIAN Impressions 04/16/2024 12:26 PM GEOSPATIAL TECHNICIAN IMPRESSION: Low inspiratory volumes. Bibasilar opacities which may reflect atelectasis or infiltrate. Referred By: Interpreted By: Sang Cano MD, 04/16/2024 12:23 PM Narrative 04/16/2024 12:26 PM GEOSPATIAL TECHNICIAN [facility] [address] [place], [place] [address] XR CHEST PORTABLE INDICATION: sepsis, increasing work of breathing TECHNIQUE: Portable AP view of the chest. COMPARISON: None available. FINDINGS: Low inspiratory volumes decreases sensitivity of this examination. Cardiac size is magnified. No pulmonary vascular congestion. Bibasilar opacities which may reflect atelectasis or infiltrate. No sizable pleural effusion or pneumothorax. Procedure Note Sang Cano MD - 04/16/2024 [facility] [address] [place], [place] [address] XR CHEST PORTABLE INDICATION: sepsis, increasing work [...] * (ABNORMAL) HEMOGLOBIN, GLYCATED (04/15/2024 9:13 AM GEOSPATIAL TECHNICIAN) HGB A1C 6.5(H) <5.7 % 04/15/2024 10:17 AM GEOSPATIAL TECHNICIAN [facility] Comment: ADA GUIDELINES 2010 5.7 TO 6.4% INCREASED RISK OF DIABETES > OR = 6.5% CONSISTENT WITH DIABETES ESTIMATED AVG GLUCOSE 140 mg/dL 04/15/2024 10:17 AM GEOSPATIAL TECHNICIAN [facility] 04/15/2024 9:13 AM GEOSPATIAL TECHNICIAN Desiree Cannon MD LABORATORY Final Resul t [facility] [address] [place] [address], [place] [phone] * VITAMIN B-12 (04/15/2024 9:13 AM GEOSPATIAL TECHNICIAN) VITAMIN B12 S/P/B 321 254 - 1,320 PG/ML 04/15/2024 12:58 PM GEOSPATIAL TECHNICIAN [facility] 04/15/2024 9:13 AM GEOSPATIAL TECHNICIAN Kelly LEHMAN LABORATORY Final Result Performing Organization Address [facility] Co de Phone Number [facility] [address] [place] [phone], * (ABNORMAL) PROTHROMBIN TIME, VENOUS (04/15/2024 9:13 AM GEOSPATIAL TECHNICIAN) PROTIME 14.1(H) 10.2 - 12.9 SEC 04/15/2024 9:50 AM GEOSPATIAL TECHNICIAN [facility] INR 1.2 04/15/2024 9:50 AM GEOSPATIAL TECHNICIAN [facility] Comment: Recommended INR Therapeutic Goals: 2.0-3.0 Routine Therapy 2.5-3.5 Mechanical Prosthetic Valves (High Risk) 04/15/2024 9:13 AM GEOSPATIAL TECHNICIAN Desiree Cannon MD LABORATORY Final Resul t Performing Organization Address [facility] Co de Phone Number [facility] [address] [place] [phone], * (ABNORMAL) FOLIC ACID SERUM (04/15/2024 9:13 AM GEOSPATIAL TECHNICIAN) FOLATE 23.0(H) 3.1 - 17.5 NG/ML 04/15/2024 12:58 PM GEOSPATIAL TECHNICIAN [facility] 04/15/2024 9:13 AM GEOSPATIAL TECHNICIAN Kelly LEHMAN LABORATORY Final Result Performing Organization Address City/[facility]/ZIP Co de Phone Number [facility] [address] [place] [address], * THYROID STIM HORMONE, TSH (04/15/2024 9:13 AM GEOSPATIAL TECHNICIAN) Only the most recent of2 resultswithin the time period is included. TSH 1.540 0.358 - 3.74 uIU/ML 04/15/2024 10:12 AM GEOSPATIAL TECHNICIAN [facility] Comment: HIGH DOSES OF BIOTIN MAY INTERFERE WITH THIS TEST RESULT. CORRELATION TO CLINICAL HISTORY AND PRESENTATION RECOMMENDED. 04/15/2024 9:13 AM GEOSPATIAL TECHNICIAN Desiree Cannon MD LABORATORY Final Resul t [facility] [address] [place] [phone], * MAGNESIUM (04/15/2024 9:13 AM GEOSPATIAL TECHNICIAN) Only the most recent of2 resultswithin the time period is included. MAGNESIUM 1.8 1.8 - 2.4 MG/DL 04/15/2024 10:12 AM GEOSPATIAL TECHNICIAN [facility] 04/15/2024 9:13 AM GEOSPATIAL TECHNICIAN Desiree Cannon MD LABORATORY Final Resul t [facility] [address] [place] [phone], * CT HEAD WO CON (04/15/2024 2:21 AM GEOSPATIAL TECHNICIAN) Anatomical Region Laterality Modality Head Computed Tomogra phy 04/15/2024 2:24 AM GEOSPATIAL TECHNICIAN Impressions 04/15/2024 2:26 AM GEOSPATIAL TECHNICIAN IMPRESSION: 1. No evidence of acute intracranial pathology. 2. Age-related atrophy and mild small vessel ischemic changes. Referred By: Interpreted By: Sugar Wang MD, 04/15/2024 2:24 AM Narrative 04/15/2024 2:26 AM GEOSPATIAL TECHNICIAN [place] [id number] EXAMINATION: CT Head without INDICATION: Altered mental [...] Procedure Note Sugar Wang MD - 04/15/2024 [facility] [address] [place], [place] [address] EXAMINATION: CT Head without INDICATION: Altered mental [...] ACID W REFLEX (SEPSIS) (04/14/2024 10:51 PM GEOSPATIAL TECHNICIAN) LACTIC ACID VENOUS 1.4 0.4 - 2.0 MMOL/L 04/14/2024 11:32 PM GEOSPATIAL TECHNICIAN [facility] 04/14/2024 10:5 1 PM GEOSPATIAL TECHNICIAN Chris Gilmore MD,PHD LABORATORY Final Resu lt [facility] [address] [place] [address], * THYROXINE, FREE (FT4) (04/14/2024 10:51 PM GEOSPATIAL TECHNICIAN) FREE T4 0.99 0.76 - 1.46 NG/DL 04/14/2024 11:42 PM GEOSPATIAL TECHNICIAN [facility] 04/14/2024 10:5 1 PM GEOSPATIAL TECHNICIAN Chris Gilmore MD,PHD LABORATORY Final Resu lt Performing Organization Address City/[facility] Co de Phone Number [facility] [address] [place] [address], [place] [phone] * (ABNORMAL) PHOSPHORUS, INORGANIC PHOSPHATE (04/14/2024 10:51 PM GEOSPATIAL TECHNICIAN) PHOSPHORUS 2.1(L) 2.5 - 4.9 MG/DL 04/14/2024 11:42 PM GEOSPATIAL TECHNICIAN [facility] 04/14/2024 10:5 1 PM GEOSPATIAL TECHNICIAN us Chris Gilmore MD,PHD LABORATORY Final Resu lt Performing Organization Address [facility] Co de Phone Number [facility] [address] [place] [address], [place] [phone] * CORONAVIRUS (COVID 19) (04/14/2024 10:35 PM GEOSPATIAL TECHNICIAN) CORONAVIRUS SARS COV 2 RNA NEGATIVE NEGATIVE 04/14/2024 11:39 PM GEOSPATIAL TECHNICIAN [facility] Comment: NEGATIVE RESULTS DO NOT [...] SARS-COV-2. SPECIMEN TYPE NASAL 04/14/2024 11:06 PM GEOSPATIAL TECHNICIAN [facility] NASAL STRUCTURE / Unknown 04/14/2024 10:35 PM GEOSPATIAL TECHNICIAN us Chris Gilmore MD,PHD MICROBIOLOGY - GENERAL ORD ERABLES Final Result Performing Organization Address City/[facility]/ZIP Co de Phone Number [facility] [address] [place] [address], [place] [phone] * INFLUENZA A & B, RAPID (04/14/2024 10:35 PM GEOSPATIAL TECHNICIAN) SPECIMEN TYPE NASAL 04/14/2024 11:11 PM GEOSPATIAL TECHNICIAN [facility] INFLUENZA A NEGATIVE NEGATIVE 04/14/2024 11:38 PM GEOSPATIAL TECHNICIAN [facility] INFLUENZA B NEGATIVE NEGATIVE 04/14/2024 11:38 PM GEOSPATIAL TECHNICIAN [facility] Comment: Interpretation: Negative for Influenza [...] NASOPHARYNGEAL SWAB / Unknown 04/14/2024 10:35 PM GEOSPATIAL TECHNICIAN us Chris Gilmore MD,PHD MICROBIOLOGY - GENERAL ORD ERABLES Final Result [facility] [address] [place] [id number], [place] [phone] * PROCALCITONIN (PCT) (04/14/2024 10:34 PM GEOSPATIAL TECHNICIAN) Procalcitonin 0.43 0.00 - 0.49 NG/ML 04/15/2024 12:13 AM GEOSPATIAL TECHNICIAN [facility] 04/14/2024 10:3 4 PM GEOSPATIAL TECHNICIAN us Chris Gilmore MD,PHD LABORATORY Final Resu lt [facility] [address] [facility] [place] [address], * CULTURE BACTERIA, BLOOD (04/14/2024 10:34 PM GEOSPATIAL TECHNICIAN) SPEC DESCRIPTION BLOOD 04/14/2024 9:50 PM GEOSPATIAL TECHNICIAN [facility] SPECIAL REQUESTS NO SPECIAL REQUEST 04/14/2024 9:50 PM GEOSPATIAL TECHNICIAN [facility] CULTURE RESULT NO GROWTH 5 DAYS 04/19/2024 7:51 AM GEOSPATIAL TECHNICIAN [facility] BLOOD SPECIMEN OBTAINED FOR BLOOD CULTURE / Unknown 04/14/2024 10:34 PM GEOSPATIAL TECHNICIAN 04/14/2024 11:09 PM GEOSPATIAL TECHNICIAN Chris Gilmore MD,PHD MICROBIOLOGY - GENERAL ORD ERABLES Final Result [facility] [address] [place] [address], from Last 3 Months Insurance [employer] Advance Directives Documents on File Type Date Recorded Patient Newsstand Vendor Expl anation DNR (Do Not Resuscitate) Documentation 04/20/2024 2:47 PM Advance Directives and Livin g Will 04/20/2024 2:44 PM Power of Sand Cutting Machine Operator 04/15/2024 2:14 AM POA 1 06-16-2023 * DNR (Latest Code Status on File) Date Activated Date Inactivated Comments 04/15/2024 4:26 AM 04/19/2024 6:26 PM * DNR Date Activated Date Inactivated Comments 04/15/2024 2:44 AM 04/15/2024 2:08 PM Care Teams Water Pollution Scientist Relationship Specialty Start Date End Date Wlili Leiva MD [address] [place] [phone] PCP - General FAMILY PRACTICE 04/14/24
--- OUTSIDE RECORDS SUMMARY | 2024-06-26 10:02 | XMS_ITS | Clinical Summary ---
Author Organization [facility] Address [address] [place] [phone] Phone Care Team Providers Care Screw Machine Set Up Operator Tool Name Role Phone Teddy Alexis Primary Care Provider [phone] Allergies No known active allergies Medications Medication [...] 01/10/2020 Influenza Vaccine (#1) 2024 Care Teams Screw Machine Set Up Operator Tool Relationship Specialty Start Date End Date Teddy Aleixs DO [address] [place] [id number] PCP - General Internal Medicine 10/14/21
== END 2024-06-26 09:17 | disposition home or self-care (01) ==
LOC: ANHED 06:41 → ANH3MEDSUR 08:35
PROVIDERS: Admitting Provider Internal Medicine; Emergency Provider Emergency Medicine; PCP Family Medicine; Visit Provider Internal Medicine
DX: J10.1 Influenza due to other identified influenza virus with other respiratory manifestations (principal); F03.C0 Unspecified dementia, severe, without behavioral disturbance, psychotic disturbance, mood disturbance, and anxiety; I12.9 Hypertensive chronic kidney disease with stage 1 through stage 4 chronic kidney disease, or unspecified chronic kidney disease; N18.30 Chronic kidney disease, stage 3 unspecified; E78.5 Hyperlipidemia, unspecified; N40.1 Benign prostatic hyperplasia with lower urinary tract symptoms; K21.9 Gastro-esophageal reflux disease without esophagitis; E55.9 Vitamin D deficiency, unspecified; R25.1 Tremor, unspecified; Z20.822 Contact with and (suspected) exposure to COVID-19; Z66 Do not resuscitate; Z79.82 Long term (current) use of aspirin; Z79.899 Other long term (current) drug therapy; Z82.3 Family history of stroke
CPT/HCPCS: 36415; 70450; 71045; 80053; 81001; 83605; 83690; 83735; 84100; 84443; 84484; 85025; 85610; 85730; 87040; 87637; 93005; 99199; 99285; A9270; J7120

== ENCOUNTER 2024-06-27 02:36 | Inpatient (IN) | payer MEDICARE, SELFPAY ==
[2024-06-27] VITALS (8 sets, daily range): BP systolic 109–160; BP diastolic 53–60; PULSE 56–79; RESP 14–20; TEMP 36.6–36.7; O2SAT 88–97; BMI 26.7
--- NOTE | ~2024-06-27 | XR_ITS ---
Portable chest x-ray Comparison: 06/26/2024 Clinical History: Weakness Findings: Probable small left pleural effusion present with left basilar haziness. Right lung clear. Cardiomediastinal silhouette is stable. Bones and soft tissues are unremarkable. Impression: Small left pleural effusion with left basilar atelectasis/edema versus pneumonia. Correlate clinicall y. Reviewed, dictated and finalized at location . [facility] Impression: Small left pleural effusion with left basilar atelectasis/edema versus pneumoni a. Correlate clinically.
--- NOTE | 2024-06-27 02:48 | ECG_ITS ---
Test Date: 2024-06-27 03:01:16 Measurements Intervals [place] Rate: 78 P: 26 AK: 174 QRS: -18 QRSD: 89 T: 32 QT: 389 QTc: 445 Interpretive Statements SINUS RHYTHM LEFT VENTRICULAR HYPERTROPHY BORDERLINE R WAVE PROGRESSION, ANTERIOR LEADS MINIMAL Q WAVES- HIGH LATERAL LEADS BASELINE WANDER- II, III, V3 BORDERLINE ECG Compared to ECG 06/26/2024 07:04:39 No significant changes Electronically Signed On 06-27-2024 07:03:00 [employer] SALES REPRESENTATIVE by Pj Nolasco D.O.
[2024-06-27 02:55] LABS: Basophils Percent Auto 0.4 % (0.2-1.2); Eosinophils Percent Auto 0.1 % (0-4.4); Hematocrit 35.9 % (42.0-52.0); Hemoglobin 11.9 g/dL (14.0-18.0); Immature Granulocyte Absolute 0.02 K/mm3 (0.00-0.031); Immature Granulocyte Percent A 0.3 % (0-0.5); Lymphocytes Absolute Auto 1.05 K/mm3 (0.9-3.2); Lymphocytes Percent Auto 14.7 % (18.3-44.2); Mean Corpuscular HGB Conc 33.1 g/dl (32-36); Mean Corpuscular Hemoglobin 30.7 pg (26-34); Mean Corpuscular Volume 92.5 fl (80-100); Mean Platelet Volume 11.1 fl (7.4-10.4); Monocytes Absolute Auto 0.8 K/mm3 (0.1-0.6); Neutrophils Absolute Auto 5.3 K/mm3 (1.3-6.7); Neutrophils Percent Auto 73.5 % (45.5-73.1); Platelet Count Result 131 k/mm3 (150-375); Red Blood Count 3.88 M/mm3 (4.6-6.20); Red Cell Distribution Width 14.7 % (11.5-14.5); White Blood Count 7.2 K/mm3 (4.5-10.0)
[2024-06-27 03:12] LABS: Alanine Aminotransferase 24 U/L (6-50); Albumin Level 3.7 g/dL (3.5-5.1); Alkaline Phosphatase 64 U/L (38-126); Anion Gap 11 mmol/L (4-12); Aspartate Amino Transferase 35 U/L (17-59); Bilirubin,Total 0.7 mg/dL (0.2-1.3); Blood Urea Nitrogen 20 mg/dL (9-20); Calcium 8.4 mg/dL (8.4-10.2); Carbon Dioxide 24 mmol/L (22-30); Chloride 105 mmol/L (98-107); Estimated CRCL calculation 33 ml/min; Estimated Glomerular Filt Rate 46; Glucose 130 mg/dL (65-110); Potassium 3.9 mmol/L (3.4-5.0); Sodium 140 mmol/L (137-145)
--- OUTSIDE RECORDS SUMMARY | 2024-06-27 03:25 | XMS_ITS | Clinical Summary ---
Author Organization [facility] Address [address] [place] [phone] Phone Care Team Providers Care Planograph Operator Name Role Phone Teddy Alexis Primary Care Provider [phone] Allergies No known active allergies Medications Medication [...] 01/10/2020 Influenza Vaccine (#1) 2024 Care Teams Planograph Operator Relationship Specialty Start Date End Date Teddy Alexis DO [address] [place] [phone] PCP - General Internal Medicine 10/14/21
--- OUTSIDE RECORDS SUMMARY | 2024-06-27 03:25 | XMS_ITS | Clinical Summary ---
Author Organization [facility] Address [address] [place] [address] Care Team Providers Care Cessation Systems Outreach Specialist Name Role Phone Willi Leiva MD Primary Care Provider [phone] Allergies Active Allergy Reactions Criticality Noted Date [...] mouth as needed (Constipation). 4 Active B Ioraxes-M-Cihgr Acid Tab Take 1 tablet by mouth daily. 4 Active Calcium Carbonate-Vitami n D (CALCIUM 600 + D OR) Take 1 tablet by mouth daily. 4 Active Active Problems Problem Noted Date Diagnosed Date Sepsis ([facility]) 04/15/2024 Encounters Date Type Department Care Team Description 04/27/2024 11:23 AM [employer] - 04/27/2024 3:06 PM [employer] Emergency [facility] [place] [address] Tab Gonzalez PA-C Urinary Symptoms; Blood In Urine Discharge Disposition: Home or Self Care (Routine Discharge) 04/27/2024 Travel 04/15/2024 2:14 AM [employer] - 04/19/2024 4:16 PM [employer] Hospital Encounter [facility] Med/Surg 3rd [place] [address] Chris Gilmore MD,PHD Desiree Cannon MD Doan, Melissa K, PA Duenas, Vincent J, MD Urinary Symptoms Discharge Disposition: Detention Facility 04/15/2024 Travel 04/14/2024 9:27 PM [employer] - 04/15/2024 2:14 AM [employer] Hospital Encounter [facility] [place] [address] Chris Gilmore MD,PHD Desiree Cannon MD Non-Staff, [...] drink = 0.6 oz pur e alcohol) [facility] Utilities Answer Date Recorded In the past 12 months has th e electric, gas, oil, or water [employer] threatened to shut off services in [...] time in the past 12 m [facility], were you homeless or living in a fci (including now)? No 04/15/2024 Sex and Gender Information Value Date Recorded Sex Assigned at Not on file Legal Sex Male 1:53 AM [employer] Gender Identity Not on file Sexual Orientation Not on file Last Filed Vital Signs Vital Sign Reading Time Taken Comments Blood Pressure 162/93 04/27/2024 2:01 PM [employer] Pulse 60 04/27/2024 2:21 PM [employer] Temperature 36.6 C (97.9 F) 04/27/2024 11:03 AM [employer] Respiratory Rate 17 04/27/2024 2:21 PM [employer] Oxygen Saturation 92% 04/27/2024 2:21 PM [employer] Inhaled Oxygen Concentration - - Weight 72.6 kg (160 lb 0.9 oz) 04/18/2024 6:03 A M [employer] Height 172.7 cm (5' 8 ) 04/27/2024 11:03 AM [employer] Body Mass Index 24.34 04/15/2024 4:44 AM [employer] Plan of Treatment Health Maintenance Due Date [...] Comments URINE BACTERIA CULTURE STAT 11:36 AM [employer] HC URINALYSIS AUTO W/O MICRO STAT 04/27/2024 11:36 AM [employer] COMPREHENSIVE METABOLIC PANEL STAT 04/27/2024 11:36 AM [employer] CBC W/DIFF AUTOMATED STAT 04/27/2024 11:36 AM [employer] CBC W/DIFF AUTOMATED Routine 04/18/2024 5:55 AM [employer] BASIC METABOLIC PANEL Routine 04/18/2024 5:55 AM [employer] CBC W/DIFF AUTOMATED Routine 04/17/2024 5:00 AM [employer] BASIC METABOLIC PANEL Routine 04/17/2024 5:00 AM [employer] XR CHEST PORTABLE Today 04/16/2024 12: 00 PM [employer] CBC W/DIFF AUTOMATED Routine 04/16/2024 5:49 AM [employer] BASIC METABOLIC PANEL Routine 04/16/2024 5:49 AM [employer] FOLIC ACID SERUM Routine 04/15/2024 9:13 AM [employer] VITAMIN B-12 Routine 04/15/2024 9:13 AM [employer] BASIC METABOLIC PANEL Routine 04/15/2024 9:13 AM [employer] THYROID STIM HORMONE TSH Routine 04/15/2024 9:13 AM [employer] HEMOGLOBIN, GLYCOSYLATED Routine 04/15/2024 9:13 AM [employer] MAGNESIUM Routine 04/15/2024 9:13 AM [employer] PROTHROMBIN TIME, VENOUS Routine 04/15/2024 9:13 AM [employer] CBC W/DIFF AUTOMATED Routine 04/15/2024 9:[address] HEAD WO CON STAT 04/15/2024 2:21 AM [employer] URINE BACTERIA CULTURE STAT 11:02 PM [employer] HC URINALYSIS AUTO W/O MICRO STAT 04/14/2024 11:02 PM [employer] PHOSPHORUS, INORGANIC PHOSPHATE STAT 04/14/2024 10:51 PM [employer] MAGNESIUM STAT 04/14/2024 10:51 PM [employer] THYROXINE, FREE (FT4) STAT 04/14/2024 10:51 PM [employer] THYROID STIM HORMONE TSH STAT 04/14/2024 10:51 PM [employer] LACTIC ACID W REFLEX (SEPSIS) STAT 04/14/2024 10:51 PM [employer] COMPREHENSIVE METABOLIC PANEL STAT 04/14/2024 10:51 PM [employer] CBC W/DIFF AUTOMATED STAT 04/14/2024 10:51 PM [employer] INFLUENZA A & B STAT 04/14/2024 10:35 PM [employer] CORONAVIRUS (COVID 19) STAT 10:35 PM [employer] CULTURE, BACTERIA, BLOOD STAT 04/14/2024 10:34 PM [employer] PROCALCITONIN (PCT) STAT 04/14/2024 1 0:34 PM [employer] XR CHEST PORTABLE STAT 04/14/2024 10: 00 PM [employer] from Last 3 Months Results * URINALYSIS (04/27/2024 11:36 AM [employer]) Only the most recent of2 resultswithin the time period is included. SPECIMEN TYPE URINE CLEAN CATCH 04/27/2024 1:32 PM [employer] COLOR (U) YELLOW 04/27/2024 1:46 PM [employer] TRANSPARENCY CLEAR 04/27/2024 1:46 PM [employer] [facility] SPECIFIC GRAVITY (U) 1.019 1.001 - 1.030 04/27/2024 1:46 PM [employer] [facility] U PH 5.5 5.0 - 9.0 04/27/2024 1:46 PM [employer] [facility] LEUKOCYTES (U) NEGATIVE NEGATIVE 04/27/2024 1:46 PM [employer] [facility] NITRITES NEGATIVE NEGATIVE 04/27/2024 1:46 PM [employer] [facility] PROTEIN RANDOM (U) 20 <30 MG/DL 04/27/2024 1:46 PM [employer] [facility] GLUCOSE (U) NORMAL NORMAL MG/DL 04/27/2024 1:46 PM [employer] [facility] KETONES MG/DL (U) NEGATIVE NEGATIVE MG/DL 04/27/2024 1:46 PM [employer] [facility] UROBILINOGEN NORMAL NORMAL MG/DL 04/27/2024 1:46 PM [employer] BILIRUBIN (U) NEGATIVE NEGATIVE MG/DL 04/27/2024 1:46 PM [employer] [facility] BLOOD (U) NEGATIVE NEGATIVE 04/27/2024 1:46 PM [facility] URINE SPECIMEN OBTAINED BY CLEAN CATCH PROCEDURE / Unknown 04/27/2024 11:36 AM [employer] us Joel Hardin FINANCIAL SERVICE PROFESSIONAL URINE ORDERABLES Final Result [facility] [address] [place] [address], [place] [phone] * CULTURE URINE (04/27/2024 11:36 AM [employer]) Only the most recent of2 resultswithin the time period is included. SPEC DESCRIPTION URINE CLEAN CATCH 04/27/2024 1:32 PM [employer] [facility] SPECIAL REQUESTS NO SPECIAL REQUEST 04/27/2024 1:32 PM [employer] [facility] CULTURE RESULT NO GROWTH 2 DAYS 04/29/2024 9:07 AM [employer] [facility] URINE SPECIMEN OBTAINED BY CLEAN CATCH PROCEDURE / Unknown 04/27/2024 11:36 AM [employer] 04/27/2024 1:34 PM [employer] us Joel Hardin NP MICROBIOLOGY - GENERAL ORDERAB LES Final Result [facility] [address] [place] [address], * (ABNORMAL) COMPREHENSIVE METABOLIC PANEL (04/27/2024 11:36 AM [employer]) Only the most recent of2 resultswithin the time period is included. GLUCOSE 100(H) 70 - 99 MG/DL 04/27/2024 12:14 PM [facility] BUN 19(H) 7 - 18 MG/DL 04/27/2024 12:14 PM [facility] CREATININE S/P/B 1.54(H) 0.7 - 1.3 MG/DL 04/27/2024 12:14 PM [employer] [facility] SODIUM S/P/B 142 136 - 145 MMOL/L 04/27/2024 12:14 PM [facility] POTASSIUM S/P/B 3.8 3.5 - 5.1 MMOL/L 04/27/2024 12:14 PM [facility] CHLORIDE S/P/B 109 97 - 115 MMOL/L 04/27/2024 12:14 PM [facility] CO2 31.3 21 - 32 MMOL/L 04/27/2024 12:14 PM [facility] CALCIUM S/P/B 9.3 8.5 - 10.1 MG/DL 04/27/2024 12:14 PM [facility] BILIRUBIN TOTAL S/P/B 0.6 0.2 - 1.2 MG/DL 04/27/2024 12:14 PM [facility] Comment: THIS ASSAY IS NOT RECOMMENDED FOR PATIENTS UNDERGOING TREATMENT WITH ELTROMBOPAG DUE TO THE POTENTIAL FOR FALSELY ELEVATED RESULTS. TOTAL PROTEIN S/P/B 7.5 6.4 - 8.2 G/DL 04/27/2024 12:14 PM [facility] ALBUMIN S/P/B 3.3(L) 3.4 - 5.0 G/DL 04/27/2024 12:14 PM [facility] AST 20 15 - 37 U/L 04/27/2024 12:14 PM [facility] ALT 45 16 - 60 U/L 04/27/2024 12:14 PM [facility] ALKALINE PHOSPHATASE S/P/B 95 50 - 136 U/L 04/27/2024 12:14 PM [facility] ANION GAP 1.7(L) 2 - 10 MMOL/L 04/27/2024 12:14 PM [facility] BUN CREATININE RATIO 12.3 6 - 26 04/27/2024 12:14 PM [facility] A/G RATIO 0.8(L) 1.0 - 2.0 RATIO 04/27/2024 12:14 PM [facility] GFR ESTIMATE 44(L) >90 ML/MIN/1.7 3 M2 04/27/2024 12:14 PM [facility] Comment: NOTE: eGFR is not calculated for patients <18 years of age or gender unknown. This is an estimated GFR calculation using the new CKD EPI creatinine equation without race and so does not require a correction factor for race. This estimated GFR should not be used for calculating drug doses. 04/27/2024 11:3 6 AM [employer] us Joel Radha Hardin NP LABORATORY Final Result [facility] [address] [place] [address], * (ABNORMAL) CBC W/DIFF AUTOMATED (04/27/2024 11:36 AM [employer]) Only the most recent of6 resultswithin the time period is included. WBC 8.03 4.5 - 11.0 x10'3/uL 04/27/2024 12:10 PM [employer] [facility] RBC 4.74 4.70 - 6.10 x10'6/uL 04/27/2024 12:10 PM [employer] [facility] HGB 13.8(L) 14.0 - 18.0 G/DL 04/27/2024 12:10 PM [facility] HCT 42.6(L) 43.0 - 54.0 % 04/27/2024 12:10 PM [employer] [facility] MCV 89.9 80.0 - 94.0 FL 04/27/2024 12:10 PM [employer] [facility] MCH 29.1 27.0 - 31.0 PG 04/27/2024 12:10 PM [employer] [facility] MCHC 32.4 32.0 - 36.0 G/DL 04/27/2024 12:10 PM [facility] RDW 14.6(H) 11.5 - 14.5 % 04/27/2024 12:10 PM [facility] PLT 314 130 - 400 x10'3/uL 04/27/2024 12:10 PM [employer] [facility] MPV 10.7 9.3 - 12.2 FL 04/27/2024 12:10 PM [facility] DIFFERENTIAL TYPE AUTOMATED DIFFERENTIAL 04/27/2024 12:10 PM [employer] [facility] NEUTROPHILS % 51.9 % 04/27/2024 12:10 PM [employer] [facility] LYMPHOCYTES % 33.3 % 04/27/2024 12:10 PM [employer] [facility] MONOCYTES % 11.0 % 04/27/2024 12:10 PM [employer] [facility] EOSINOPHILS 2.7 % 04/27/2024 12:10 PM [employer] [facility] BASOPHILS 0.6 % 04/27/2024 12:10 PM [employer] [facility] IMMATURE GRANS % 0.5 % 04/27/20 12:10 PM [employer] [facility] ABS. NEUTROPHILS 4.17 1.80 - 7.70 x10'3/uL 04/27/2024 12:10 PM [employer] [facility] ABS. LYMPHOCYTES 2.67 1.00 - 4.80 x10'3/uL 04/27/2024 12:10 PM [employer] [facility] ABS. MONOCYTES 0.88(H) 0.30 - 0.82 x10'3/uL 04/27/2024 12:10 PM [employer] [facility] ABS. EOSINOPHILS 0.22 0.04 - 0.54 x10'3/uL 04/27/2024 12:10 PM [employer] [facility] ABS. BASOPHILS 0.05 0.01 - 0.08 x10'3/uL 04/27/2024 12:10 PM [facility] ABS. IMMATURE GRANULOCYTES 0.04 0.00 - 0.49 x10'3/uL 04/27/2024 12:10 PM [facility] 04/27/2024 11:3 6 AM [employer] Joel Radha Hardin FINANCIAL SERVICE PROFESSIONAL LABORATORY Final Result [facility] [address] [place] [address], [place] [phone] * (ABNORMAL) BASIC METABOLIC PANEL (04/18/2024 5:55 AM [employer]) Only the most recent of4 resultswithin the time period is included. GLUCOSE 111(H) 70 - 99 MG/DL 04/18/2024 6:34 AM [facility] BUN 14 7 - 18 MG/DL 04/18/2024 6:34 AM [facility] CREATININE S/P/B 1.16 0.7 - 1.3 MG/DL 04/18/2024 6:34 AM [facility] SODIUM S/P/B 141 136 - 145 MMOL/L 04/18/2024 6:34 AM [facility] POTASSIUM S/P/B 3.4(L) 3.5 - 5.1 MMOL/L 04/18/2024 6:34 AM [facility] CHLORIDE S/P/B 111 97 - 115 MMOL/L 04/18/2024 6:34 AM [facility] CO2 27.1 21 - 32 MMOL/L 04/18/2024 6:34 AM [facility] CALCIUM S/P/B 8.2(L) 8.5 - 10.1 MG/DL 04/18/2024 6:34 AM [facility] ANION GAP 2.9 2 - 10 MMOL/L 04/18/2024 6:34 AM [facility] BUN CREATININE RATIO 12.1 6 - 26 04/18/2024 6:34 AM [employer] [facility] GFR ESTIMATE 61(L) >90 ML/MIN/1.7 3 M2 04/18/2024 6:34 AM [employer] [facility] Comment: NOTE: eGFR is not calculated for patients <18 years of age or gender unknown. This is an estimated GFR calculation using the new CKD EPI creatinine equation without race and so does not require a correction factor for race. This estimated GFR should not be used for calculating drug doses. 04/18/2024 5:55 AM [employer] Kelly LEHMAN LABORATORY Final Result [facility] [address] [place] [address], * XR CHEST PORTABLE (04/16/2024 12:00 PM [employer]) Only the most recent of2 resultswithin the time period is included. Anatomical Region Laterality Modality Chest Radiographic Christy ging 04/16/2024 12:2 3 PM [employer] Impressions 04/16/2024 12:26 PM [employer] IMPRESSION: Low inspiratory volumes. Bibasilar opacities which may reflect atelectasis or infiltrate. Referred By: Interpreted By: Sang Cano MD, 04/16/2024 12:23 PM Narrative 04/16/2024 12:26 PM [employer] [facility] [address] [place], [place] [address] XR CHEST PORTABLE INDICATION: sepsis, increasing work of breathing TECHNIQUE: Portable AP view of the chest. COMPARISON: None available. FINDINGS: Low inspiratory volumes decreases sensitivity of this examination. Cardiac size is magnified. No pulmonary vascular congestion. Bibasilar opacities which may reflect atelectasis or infiltrate. No sizable pleural effusion or pneumothorax. Procedure Note Sang Cano MD - 04/16/2024 [facility] [address] [place], [place] [address] XR CHEST PORTABLE INDICATION: sepsis, increasing work [...] * (ABNORMAL) HEMOGLOBIN, GLYCATED (04/15/2024 9:13 AM [employer]) HGB A1C 6.5(H) <5.7 % 04/15/2024 10:17 AM [employer] [facility] Comment: ADA GUIDELINES 2010 5.7 TO 6.4% INCREASED RISK OF DIABETES > OR = 6.5% CONSISTENT WITH DIABETES ESTIMATED AVG GLUCOSE 140 mg/dL 04/15/2024 10:17 AM [employer] [facility] 04/15/2024 9:13 AM [employer] Desiree Cannon MD LABORATORY Final Resul t [facility] [address] [place] [address], [place] [phone] * VITAMIN B-12 (04/15/2024 9:13 AM [employer]) VITAMIN B12 S/P/B 321 254 - 1,320 PG/ML 04/15/2024 12:58 PM [employer] [facility] 04/15/2024 9:13 AM [employer] Kelly LEHMAN LABORATORY Final Result Performing Organization Address [facility] Co de Phone Number [facility] [address] [place] [phone], * (ABNORMAL) PROTHROMBIN TIME, VENOUS (04/15/2024 9:13 AM [employer]) PROTIME 14.1(H) 10.2 - 12.9 SEC 04/15/2024 9:50 AM [employer] [facility] INR 1.2 04/15/2024 9:50 AM [employer] [facility] Comment: Recommended INR Therapeutic Goals: 2.0-3.0 Routine Therapy 2.5-3.5 Mechanical Prosthetic Valves (High Risk) 04/15/2024 9:13 AM [employer] Desiree Cannon MD LABORATORY Final Resul t Performing Organization Address [facility] Co de Phone Number [facility] [address] [place] [phone], * (ABNORMAL) FOLIC ACID SERUM (04/15/2024 9:13 AM [employer]) FOLATE 23.0(H) 3.1 - 17.5 NG/ML 04/15/2024 12:58 PM [employer] [facility] 04/15/2024 9:13 AM [employer] Kelly LEHMAN LABORATORY Final Result Performing Organization Address City/[facility]/ZIP Co de Phone Number [facility] [address] [place] [address], * THYROID STIM HORMONE, TSH (04/15/2024 9:13 AM [employer]) Only the most recent of2 resultswithin the time period is included. TSH 1.540 0.358 - 3.74 uIU/ML 04/15/2024 10:12 AM [employer] [facility] Comment: HIGH DOSES OF BIOTIN MAY INTERFERE WITH THIS TEST RESULT. CORRELATION TO CLINICAL HISTORY AND PRESENTATION RECOMMENDED. 04/15/2024 9:13 AM [employer] Desiree Cannon MD LABORATORY Final Resul t [facility] [address] [place] [address], * MAGNESIUM (04/15/2024 9:13 AM [employer]) Only the most recent of2 resultswithin the time period is included. MAGNESIUM 1.8 1.8 - 2.4 MG/DL 04/15/2024 10:12 AM [employer] [facility] 04/15/2024 9:13 AM [employer] Desiree Cannon MD LABORATORY Final Resul t [facility] [address] [place] [phone], * CT HEAD WO CON (04/15/2024 2:21 AM [employer]) Anatomical Region Laterality Modality Head Computed Tomogra phy 04/15/2024 2:24 AM [employer] Impressions 04/15/2024 2:26 AM [employer] IMPRESSION: 1. No evidence of acute intracranial pathology. 2. Age-related atrophy and mild small vessel ischemic changes. Referred By: Interpreted By: Sugar Wang MD, 04/15/2024 2:24 AM Narrative 04/15/2024 2:26 AM [employer] [place] [address] EXAMINATION: CT Head without INDICATION: Altered mental [...] Procedure Note Sugar Wang MD - 04/15/2024 [facility] [address] [place], [place] [address] EXAMINATION: CT Head without INDICATION: Altered mental [...] ischemic changes. Referred By: Interpreted By: Sugar Wnag MD, 04/15/2024 2:24 AM Desiree Cannon MD CT Final Resul t * LACTIC ACID W REFLEX (SEPSIS) (04/14/2024 10:51 PM [employer]) LACTIC ACID VENOUS 1.4 0.4 - 2.0 MMOL/L 04/14/2024 11:32 PM [employer] [facility] 04/14/2024 10:5 1 PM [employer] Chris Gilmore MD,PHD LABORATORY Final Resu lt [facility] [address] [place] [address], * THYROXINE, FREE (FT4) (04/14/2024 10:51 PM [employer]) FREE T4 0.99 0.76 - 1.46 NG/DL 04/14/2024 11:42 PM [employer] [facility] 04/14/2024 10:5 1 PM [employer] Chris Gilmore MD,PHD LABORATORY Final Resu lt Performing Organization Address City/[facility] Co de Phone Number [facility] [address] [place] [address], [place] [phone] * (ABNORMAL) PHOSPHORUS, INORGANIC PHOSPHATE (04/14/2024 10:51 PM [employer]) PHOSPHORUS 2.1(L) 2.5 - 4.9 MG/DL 04/14/2024 11:42 PM [employer] [facility] 04/14/2024 10:5 1 PM [employer] us Chris Gilmore MD,PHD LABORATORY Final Resu lt Performing Organization Address [facility] Co de Phone Number [facility] [address] [place] [address], [place] [phone] * CORONAVIRUS (COVID 19) (04/14/2024 10:35 PM [employer]) CORONAVIRUS SARS COV 2 RNA NEGATIVE NEGATIVE 04/14/2024 11:39 PM [employer] [facility] Comment: NEGATIVE RESULTS DO [...] SARS-COV-2. SPECIMEN TYPE NASAL 04/14/2024 11:06 PM [employer] [facility] NASAL STRUCTURE / Unknown 04/14/2024 10:35 PM [employer] us Chris Gilmore MD,PHD MICROBIOLOGY - GENERAL ORD ERABLES Final Result Performing Organization Address City/[facility]/ZIP Co de Phone Number [facility] [address] [place] [address], [place] [phone] * INFLUENZA A & B, RAPID (04/14/2024 10:35 PM [employer]) SPECIMEN TYPE NASAL 04/14/2024 11:11 PM [employer] [facility] INFLUENZA A NEGATIVE NEGATIVE 04/14/2024 11:38 PM [employer] [facility] INFLUENZA B NEGATIVE NEGATIVE 04/14/2024 11:38 PM [employer] [facility] Comment: Interpretation: Negative for [...] NASOPHARYNGEAL SWAB / Unknown 04/14/2024 10:35 PM [employer] us Chris Gilmore MD,PHD MICROBIOLOGY - GENERAL ORD ERABLES Final Result [facility] [address] [place] [id number], [place] [phone] * PROCALCITONIN (PCT) (04/14/2024 10:34 PM [employer]) Procalcitonin 0.43 0.00 - 0.49 NG/ML 04/15/2024 12:13 AM [employer] [facility] 04/14/2024 10:3 4 PM [employer] us Chris Gilmore MD,PHD LABORATORY Final Resu lt [facility] [address] [place] [address], * CULTURE BACTERIA, BLOOD (04/14/2024 10:34 PM [employer]) SPEC DESCRIPTION BLOOD 04/14/2024 9:50 PM [employer] [facility] SPECIAL REQUESTS NO SPECIAL REQUEST 04/14/2024 9:50 PM [employer] [facility] CULTURE RESULT NO GROWTH 5 DAYS 04/19/2024 7:51 AM [employer] [facility] BLOOD SPECIMEN OBTAINED FOR BLOOD CULTURE / Unknown 04/14/2024 10:34 PM [employer] 04/14/2024 11:09 PM [employer] Chris Gilmore MD,PHD MICROBIOLOGY - GENERAL ORD ERABLES Final Result [facility] [address] [place] [address], from Last 3 Months Insurance [employer] Advance Directives Documents on File Type Date Recorded Patient Intervention Nurse Expl anation DNR (Do Not Resuscitate) Documentation 04/20/2024 2:47 PM Advance Directives and Livin g Will 04/20/2024 2:44 PM Power of [employer] Driver 04/15/2024 2:14 AM POA 1 06-16-2023 * DNR (Latest Code Status on File) Date Activated Date Inactivated Comments 04/15/2024 4:26 AM 04/19/2024 6:26 PM * DNR Date Activated Date Inactivated Comments 04/15/2024 2:44 AM 04/15/2024 2:08 PM Care Teams Cessation Systems Outreach Specialist Relationship Specialty Start Date End Date Willi Leiva MD [address] [place] [phone] PCP - General FAMILY PRACTICE 04/14/24
--- NOTE | 2024-06-27 03:59 | ED.GENADULT ---
HPI - General Adult General Chief complaint: Fever Stated complaint: FLU+, LETHARGIC, NAUSEA, FEVER Time Seen by Provider: 06/27/24 02:58 History of Present Illness HPI narrative: This is an 84-year-old male with severe dementia was recently been diagnosed with influenza bouncing back to the hospital after being discharged earlier this morning. Patient went back to the care home and is responsive to pain only. They and then sent him back to the ED for re-evaluation. Family is at bedside. I discussed goals of care with them about ayush father. He will remain DNR DNI/ medications ok. They would like to speak with care coordination about getting more information for hospice. Patient is responsive to pain only. Cannot provide any information guide an interview. Related Data Home Medications ?Medication ?Instructions ?Recorded ?Confirmed ?Last Taken ?Type aspirin 81 mg tablet,delayed 81 mg PO DAILY 05/25/19 11/08/22 11/08/22 09:00 History release (Adult Aspirin Regimen) cinnamon bark 500 mg capsule 500 mg PO DAILY 11/24/19 11/08/22 11/08/22 History (Cinnamon) multivitamin (Multiple Vitamins 1 tablet PO DAILY 11/24/19 11/08/22 11/08/22 History tablet) vitamin B complex (Super B-50 1 cap PO DAILY 11/24/19 11/08/22 11/08/22 History Complex capsule) melatonin 5 mg capsule 5 mg PO .qhs PRN Insomnia 06/18/20 11/08/22 11/07/22 History acetaminophen 650 mg 650 mg PO QID PRN Pain 08/29/22 11/08/22 Unknown History tablet,extended release (Arthritis Pain Relief (acetaminophen) ER) loratadine 10 mg tablet 10 mg PO DAILY PRN Allergy Symptoms 08/29/22 11/08/22 Unknown History polyethylene glycol 3350 17 17 g PO DAILY PRN Constipation 08/29/22 11/08/22 Unknown History gram/dose oral powder sodium chloride 0.65 % nasal spray 4 spray intranasal QID PRN Dry 08/29/22 11/08/22 Unknown History aerosol (Saline Nasal) Nasal Passages Calcium 600/Vit D 800 1 tab-cap PO DAILY 09/02/22 11/08/22 11/08/22 History omega-3 fatty acids-vitamin E 1 cap PO DAILY 11/08/22 11/08/22 11/08/22 History 1,000 mg capsule tamsulosin 0.4 mg capsule 0.4 mg PO DAILY 11/08/22 11/08/22 11/08/22 History Allergies Allergy/AdvReac Type Severity Reaction Status Date / Time primidone (From Mysoline) AdvReac Severe Dizziness Verified 09/10/22 14:42 [facility] Past Medical History Medical History Benign prostatic hyperplasia Gastroesophageal reflux disease Dementia Hyperlipemia Hypertension Surgical History Surgical History History of removal of skin mole Family History Family History Mother Family history of respiratory disorder, Onset Age: 56 Patient's mother is Father Cerebrovascular accident, Onset Age: 89 Patient's father is Sibling Family history of heart disease in male family member before age 55, Onset Age: 79 Patient's brother is Other Hypertension Social History Social History Smoking status: Never smoker Alcohol intake: never Substance use: never Substance use type: does not use Lack of Transportation: No Lack of Food: Never True Current Housing: I Have Housing Concerned About Future Housing: No Difficulty Paying Gas/Electric Bills: No Difficulty Paying for Meds: No Currently Unemployed: No Education: Trade/Vocational Certificate Difficulty w/ Childcare or Family Care: No Living arrangements: assisted living Spiritual care concerns: No Exam Narrative: APPEARANCE: Sitting in bed with his eyes closed, responsive to pain only Head: atraumatic. EYES: EOMI, NOSE: Atraumatic NECK: Trachea midline RESPIRATORY: Hypoxic on room air, clear to auscultation CARDIOVASCULAR: RRR, no no peripheral edema ABDOMINAL: Non-distended MUSCULOSKELETAl: No obvious deformities NEURO: Responsive to pain, moving for 4 extremities SKIN:: Warm, dry. Normal color PSYCHIATRIC: Responsive to pain Course Vital Signs Vital signs: Vital Signs Temperature 97.8 F 06/27/24 02:37 Pulse Rate 79 06/27/24 02:37 Respiratory Rate 18 06/27/24 02:37 Blood Pressure 112/57 L 06/27/24 02:37 Pulse Oximetry 88 L 06/27/24 02:37 Oxygen Delivery Room Air 06/27/24 02:37 Temperature 97.8 F 06/27/24 02:37 Pulse Rate 79 06/27/24 02:53 Respiratory Rate 20 06/27/24 02:53 Blood Pressure 119/54 L 06/27/24 02:53 Pulse Oximetry 97 06/27/24 02:56 Oxygen Delivery Nasal Cannula 06/27/24 02:56 Oxygen Flow Rate 3 06/27/24 02:56 Medical Decision Making MDM Narrative Medical decision making narrative: -Course: 84-year-old male with severe dementia influenza presenting for hypoxia. 88% on room air. Placed on 3 L nasal cannula. Otherwise vital signs and screening lab work within normal limits. Patient is responsive to pain only. He is DNR DNI. Patient will be admitted the hospital for further management. Care coordination consult placed for hospice referral. Vital Signs Vital Signs: Vital Signs Temperature 97.8 F 06/27/24 02:37 Pulse Rate 79 06/27/24 02:37 Respiratory Rate 18 06/27/24 02:37 Blood Pressure 112/57 L 06/27/24 02:37 Pulse Oximetry 88 L 06/27/24 02:37 Oxygen Delivery Room Air 06/27/24 02:37 Temperature 97.8 F 06/27/24 02:37 Pulse Rate 79 06/27/24 02:53 Respiratory Rate 20 06/27/24 02:53 Blood Pressure 119/54 L 06/27/24 02:53 Pulse Oximetry 97 06/27/24 02:56 Oxygen Delivery Nasal Cannula 06/27/24 02:56 Oxygen Flow Rate 3 06/27/24 02:56 Lab Data 06/27/24 02:49 06/27/24 02:49 Labs: Lab Results 06/27/24 Range/Units 02:49 WBC 7.2 (4.5-10.0) K/mm3 RBC 3.88 L (4.6-6.20) M/mm3 Hgb 11.9 L (14.0-18.0) g/dL Hct 35.9 L (42.0-52.0) % MCV 92.5 (80-100) fl MCH 30.7 (26-34) pg MCHC 33.1 (32-36) g/dl RDW 14.7 H (11.5-14.5) % Plt Count 131 L (150-375) k/mm3 MPV 11.1 H (7.4-10.4) fl Immature Gran % (Auto) 0.3 (0-0.5) % Neut % (Auto) 73.5 H (45.5-73.1) % Lymph % (Auto) 14.7 L (18.3-44.2) % Motley % (Auto) 11.0 H (2.6-8.5) % Eos % (Auto) 0.1 (0-4.4) % Baso % (Auto) 0.4 (0.2-1.2) % Lymph # (Auto) 1.05 (0.9-3.2) K/mm3 Motley # (Auto) 0.8 H (0.1-0.6) K/mm3 Eos # (Auto) 0.0 (0-0.3) K/mm3 Baso # (Auto) 0.0 (0.0-0.1) K/mm3 Abs Immat Gran (auto) 0.02 (0.00-0.031) K/mm3 Absolute Neuts (auto) 5.3 (1.3-6.7) K/mm3 Absolute Nucleated RBC 0.000 (0.0-0.012) K/mm3 Nucleated RBC % 0.0 (0.0-0.2) % Sodium 140 (137-145) mmol/L Potassium 3.9 (3.4-5.0) mmol/L Chloride 105 (98-107) mmol/L Carbon Dioxide 24 (22-30) mmol/L Anion Gap 11 (4-12) mmol/L BUN 20 (9-20) mg/dL Creatinine 1.46 H (0.7-1.3) mg/dL Estim Creat Clear Calc 33 ml/min Estimated GFR 46 L (59 - ) Glucose 130 H (65-110) mg/dL Calcium 8.4 (8.4-10.2) mg/dL Total Bilirubin 0.7 (0.2-1.3) mg/dL AST 35 (17-59) U/L ALT 24 (6-50) U/L Alkaline Phosphatase 64 (38-126) U/L Total Protein 7.0 (6.3-8.2) g/dL Albumin 3.7 (3.5-5.1) g/dL Discharge Plan Discharge Clinical Impression: Influenza A, AMS (altered mental status), Hypoxic respiratory failure Patient Disposition: Still a Patient Condition: Stable Patient Language: Occitan Prescriptions: No Action multivitamin [Multiple Vitamins] Tablet 1 tablet PO DAILY cinnamon bark [Cinnamon] 500 mg capsule 500 mg PO DAILY vitamin B complex [Super B-50 Complex] Capsule 1 cap PO DAILY aspirin [Adult Aspirin Regimen] 81 mg tablet,delayed release (DR/EC) 81 mg PO DAILY melatonin 5 mg capsule 5 mg PO .qhs PRN (Reason: Insomnia) acetaminophen [Arthritis Pain Relief (acetam)] 650 mg tablet extended release 650 mg PO QID PRN (Reason: Pain) polyethylene glycol 3350 17 gram/dose powder 17 g PO DAILY PRN (Reason: Constipation) loratadine 10 mg tablet 10 mg PO DAILY PRN (Reason: Allergy Symptoms) Saline Nasal 0.65 % aerosol,spray 4 spray INTRANASAL QID PRN (Reason: Dry Nasal Passages) Calcium 600/Vit D 800 1 tab-cap PO DAILY omega-3 fatty acids-vitamin E 1,000 mg Capsule 1 cap PO DAILY tamsulosin 0.4 mg capsule 0.4 mg PO DAILY Robitussin Cough and Cold CF 2.5-5-50 mg/5 mL liquid 15 ml PO Q4H PRN (Reason: cold symptoms) Qty: 118 0RF Rx Instructions: take 15 ml po q4hr prn for cough oseltamivir [Tamiflu] 30 mg capsule 30 mg PO DAILY 5 Days Qty: 5 0RF mirtazapine 15 mg tablet 15 mg PO QHS Qty: 30 3RF finasteride 5 mg tablet 5 mg PO DAILY Qty: 90 1RF fluticasone propionate 50 mcg/actuation spray,suspension 1 spray INTRANASAL BID Qty: 16 0RF verapamil 240 mg capsule,ext rel. pellets 24 hr 240 mg PO DAILY Qty: 90 1RF donepezil [Aricept] 5 mg tablet 5 mg PO QHS Qty: 90 1RF pravastatin 20 mg tablet 20 mg PO DAILY Qty: 90 0RF Rx Instructions: TAKE 1 TABLET BY MOUTH EVERY DAY propranolol 20 mg tablet 20 mg PO Q12H Qty: 180 1RF Rx Instructions: TAKE 1 TABLET BY MOUTH EVERY 12 HOURS Follow-up/Referrals: Willi Leiva MD [Primary Care Provider] -
--- NOTE | 2024-06-27 12:09 | PM.IMHP ---
H&P: HPI History of Present Illness Date/Time: 06/27/24 12:09 Chief Complaint: ams Narrative: Erik Her is a 84 year old male with medical History of severe dementia, GERD, hyperlipidemia, vit d deficiency, HTN, CKD stage III, BPH with LUTS, tremors was brought back to ed after being discharge from [facility] yesterday for increased ams. He was here yesterday for flu. Based on discharge summary, pt was already confused- oriented to self only- but it was his baseline. Per ed documentation, family wants to proceed with hospice/palliative care. Care coordination was consulted. Unable to complete assessment as family not present and pt is drowsy but unable to answer any questions. Review of Systems Review of Systems: All systems reviewed & are unremarkable except as noted in HPI and below PMFSH Past Medical History Medical History Benign prostatic hyperplasia Gastroesophageal reflux disease Dementia Hyperlipemia Hypertension Surgical History Surgical History History of removal of skin mole Family History Family History Mother Family history of respiratory disorder, Onset Age: 56 Patient's mother is Father Cerebrovascular accident, Onset Age: 89 Patient's father is Sibling Family history of heart disease in male family member before age 55, Onset Age: 79 Patient's brother is Other Hypertension Social History Social History Smoking status: Never smoker Alcohol intake: never Substance use: never Substance use type: does not use Lack of Transportation: No Lack of Food: Never True Current Housing: I Have Housing Concerned About Future Housing: No Difficulty Paying Gas/Electric Bills: No Difficulty Paying for Meds: No Currently Unemployed: No Education: Trade/Vocational Certificate Difficulty w/ Childcare or Family Care: No Living arrangements: assisted living Spiritual care concerns: No Meds Home Medications and Allergies Home Medications ?Medication ?Instructions ?Recorded ?Confirmed ?Type aspirin 81 mg tablet,delayed 81 mg PO DAILY 05/25/19 11/08/22 History release (Adult Aspirin Regimen) cinnamon bark 500 mg capsule 500 mg PO DAILY 11/24/19 11/08/22 History (Cinnamon) multivitamin (Multiple Vitamins 1 tablet PO DAILY 11/24/19 11/08/22 History tablet) vitamin B complex (Super B-50 1 cap PO DAILY 11/24/19 11/08/22 History Complex capsule) melatonin 5 mg capsule 5 mg PO .qhs PRN Insomnia 06/18/20 11/08/22 History acetaminophen 650 mg 650 mg PO QID PRN Pain 08/29/22 11/08/22 History tablet,extended release (Arthritis Pain Relief (acetaminophen) ER) loratadine 10 mg tablet 10 mg PO DAILY PRN Allergy Symptoms 08/29/22 11/08/22 History polyethylene glycol 3350 17 17 g PO DAILY PRN Constipation 08/29/22 11/08/22 History gram/dose oral powder sodium chloride 0.65 % nasal spray 4 spray intranasal QID PRN Dry 08/29/22 11/08/22 History aerosol (Saline Nasal) Nasal Passages Calcium 600/Vit D 800 1 tab-cap PO DAILY 09/02/22 11/08/22 History mirtazapine 15 mg tablet 15 mg PO QHS #30 tabs 10/08/22 11/08/22 Rx finasteride 5 mg tablet 5 mg PO DAILY #90 tabs 10/31/22 11/08/22 Rx fluticasone propionate 50 1 spray intranasal BID #16 grams 11/03/22 11/08/22 Rx mcg/actuation nasal spray,suspension omega-3 fatty acids-vitamin E 1 cap PO DAILY 11/08/22 11/08/22 History 1,000 mg capsule tamsulosin 0.4 mg capsule 0.4 mg PO DAILY 11/08/22 11/08/22 History donepezil 5 mg tablet (Aricept) 5 mg PO QHS #90 tabs 12/01/22 Rx pravastatin 20 mg tablet 20 mg PO DAILY #90 tabs 12/01/22 Rx propranolol 20 mg tablet 20 mg PO Q12H #180 tabs 12/01/22 Rx verapamil 240 mg 24 hr 240 mg PO DAILY #90 caps 12/01/22 Rx capsule,extended release oseltamivir 30 mg capsule (Tamiflu) 30 mg PO DAILY 5 days #5 caps 06/26/24 Rx buwgbeqmmeiun-FR-kapyqvexvyb 2.5 15 ml PO Q4H PRN cold symptoms 06/26/24 Rx mg-5 mg-50 mg/5 mL oral liquid #118 mL (Robitussin Cough and Cold CF) Allergies Allergy/AdvReac Type Severity Reaction Status Date / Time primidone (From Mysoline) AdvReac Severe Dizziness Verified 09/10/22 14:42 Vital Signs Vital Signs - 24 hr 06/27/24 02:37 06/27/24 02:53 06/27/24 02:53 Temperature 97.8 F Pulse Rate 79 79 Respiratory Rate 18 20 20 Blood Pressure 112/57 L 119/54 L Pulse Oximetry 88 L 96 96 Oxygen Delivery Room Air Oxygen Flow Rate 3 06/27/24 02:56 06/27/24 05:48 06/27/24 07:28 Temperature Pulse Rate 65 70 Respiratory Rate 18 18 Blood Pressure 120/56 L Pulse Oximetry 97 97 Oxygen Delivery Nasal Cannula Oxygen Flow Rate 3 06/27/24 07:30 Temperature Pulse Rate 62 Respiratory Rate 17 Blood Pressure 109/53 L Pulse Oximetry Oxygen Delivery Oxygen Flow Rate Exam Narrative: appears comfortable Const: General: comfortable Resp: Effort & Inspection: normal respiratory effort Auscultation: crackles and diminished lung sounds Cardio: Rate: regular rate GI: GI Palp: Yes Soft to palpation Auscultation: normal bowel sounds Neuro: Other: drowsy, respond to painful stimuli H&P: Results Labs Labs: Short CBC 06/27/24 Range/Units 02:49 WBC 7.2 (4.5-10.0) K/mm3 Hgb 11.9 L (14.0-18.0) g/dL Hct 35.9 L (42.0-52.0) % Plt Count 131 L (150-375) k/mm3 BMP 06/27/24 02:49 Sodium 140 Potassium 3.9 Chloride 105 Carbon Dioxide 24 BUN 20 Creatinine 1.46 H Glucose 130 H Calcium 8.4 Liver Function 06/27/24 Range/Units 02:49 Total Bilirubin 0.7 (0.2-1.3) mg/dL AST 35 (17-59) U/L ALT 24 (6-50) U/L Alkaline Phosphatase 64 (38-126) U/L Albumin 3.7 (3.5-5.1) g/dL Assessment and Plan Assessment and plan (1) Mixed hyperlipidemia: Code(s): E78.2 - Mixed hyperlipidemia Status: Acute (2) Vitamin D deficiency: Code(s): E55.9 - Vitamin D deficiency, unspecified Status: Acute (3) Gastroesophageal reflux disease: Code(s): K21.9 - Gastro-esophageal reflux disease without esophagitis Status: Acute (4) Chronic kidney disease, stage III (moderate): Code(s): N18.3 - Chronic kidney disease, stage 3 (moderate) Status: Acute (5) Influenza A: Code(s): J10.1 - Influenza due to other identified influenza virus with other respiratory manifestations Status: Acute (6) Altered mental status: Code(s): R41.82 - Altered mental status, unspecified Status: Acute Plan Erik Her is a 84 year old male with medical History of severe dementia, GERD, hyperlipidemia, vit d deficiency, HTN, CKD stage III, BPH with LUTS, tremors here for AMS. Palliative care/hospice consult. Unable to restart home meds as too drowsy to take any pop meds. Care coordination is following. Quality If No VTE Prophylaxis Answer both mechanical and pharmacologic: Reason no mechanical VTE proph: patient/caregiver refusal
--- NOTE | 2024-06-27 13:40 | ADMGEN ---
This patient, Erik Her, was admitted to [facility] Surg Room 319-01. Patient/family oriented to hospital policies and general routines including ID bracelet, bed and alarms, visiting hours, pain management, procedures, bathroom and other care routines, personal items, smoking policy, room service/diet, and visiting hours. Information on how to activate the Rapid Response Team has been discussed. Patient/Family are encouraged to report perceived risks to care and to ask questions if they do not understand what they are told or what they should do.
[2024-06-28 05:44] VITALS: BP 159/60; PULSE 58; RESP 16; TEMP 36.6; O2SAT 94
--- NOTE | 2024-06-28 08:35 | P.CDI_ITS ---
CDI Query Clarification Request Altered mental status has been documented in progress note. Please clarify acuity of alteration in mental status: * Acute * Chronic * Acute and chronic * Unable to determine * Other, please specify Please clarify the underlying possible/probable/suspected cause for the altered mental status in the progress notes: * Encephalopathy * Neurologic condition * Electrolyte/metabolic imbalance/dehydration * Infectious process (ie meningitis/encephalitis * Psychiatric condition * Respiratory condition * Dementia * Other, please specify * Unknown/unable to determine The medical record reflects the following: (6) Altered mental status: Code(s): R41.82 - Altered mental status, unspecified Status: Acute Plan Erik Her is a 84 year old male with medical History of severe dementia, GERD, hyperlipidemia, vit d deficiency, HTN, CKD stage III, BPH with LUTS, tremors here for AMS.
--- NOTE | 2024-06-28 08:35 | WPDCDIQUERY2 ---
CDI Query Clarification Request Altered mental status has been documented in progress note. Please clarify acuity of alteration in mental status: Acute Chronic Acute and chronic Unable to determine Other, please specify Please clarify the underlying possible/probable/suspected cause for the altered mental status in the progress notes: Encephalopathy Neurologic condition Electrolyte/metabolic imbalance/dehydration Infectious process (ie meningitis/encephalitis Psychiatric condition Respiratory condition Dementia Other, please specify Unknown/unable to determine The medical record reflects the following: (6) Altered mental status: Code(s): R41.82 - Altered mental status, unspecified Status: Acute Plan Erik Her is a 84 year old male with medical History of severe dementia, GERD, hyperlipidemia, vit d deficiency, HTN, CKD stage III, BPH with LUTS, tremors here for AMS.
[2024-06-28 09:49] VITALS: O2SAT 95
--- NOTE | 2024-06-28 11:01 | PM.DS ---
DS: Admitting Diagnosis Discharge Date 06/28 Admitting Diagnosis influenza, ams DS: Discharge Diagnosis Discharge Diagnosis (1) Mixed hyperlipidemia: Code(s): E78.2 - Mixed hyperlipidemia Status: Acute (2) Vitamin D deficiency: Code(s): E55.9 - Vitamin D deficiency, unspecified Status: Acute (3) Gastroesophageal reflux disease: Code(s): K21.9 - Gastro-esophageal reflux disease without esophagitis Status: Acute (4) Chronic kidney disease, stage III (moderate): Code(s): N18.3 - Chronic kidney disease, stage 3 (moderate) Status: Acute (5) Influenza A: Code(s): J10.1 - Influenza due to other identified influenza virus with other respiratory manifestations Status: Acute (6) Altered mental status: Code(s): R41.82 - Altered mental status, unspecified Status: Acute DS: Summary Hospital Course Hospital Course: ams Erik Her is a 84 year old male with medical History of severe dementia, GERD, hyperlipidemia, vit d deficiency, HTN, CKD stage III, BPH with LUTS, tremors was brought back to ed after being discharge from this facility yesterday for increased ams. He was here yesterday for flu. Based on discharge summary, pt was already confused- oriented to self only- but it was his baseline. Per ed documentation, family wants to proceed with hospice/palliative care. Care coordination was consulted- arrangements are being made to set up and discharge for hospice care. Status at Discharge Functional status at discharge: bed bound Overall status at discharge: other (ams- oriented to self but that is his baseline) Time Spent with Patient Time attestation: Total time spent providing and/or coordinating discharge services: Time spent: Greater than 30 minutes Exam Narrative: appears comfortable Const: General: comfortable Resp: Effort & Inspection: normal respiratory effort Auscultation: crackles and diminished lung sounds Cardio: Rate: regular rate GI: Auscultation: normal bowel sounds Psych: Affect: normal affect Discharge Plan Discharge Attending physician on discharge: Kenji Apple Discharging Clinician: Marika Umana Patient Disposition: Other Activity: may shower Diet: as tolerated and regular Discharge Instructions: further meds management per Hospice team Patient Instructions: Antibiotic Form Patient Language: Grenadian Stand Alone Forms: General Discharge Information Discharge Medications: Continued multivitamin [Multiple Vitamins] Tablet 1 tablet PO DAILY cinnamon bark [Cinnamon] 500 mg capsule 500 mg PO DAILY vitamin B complex [Super B-50 Complex] Capsule 1 cap PO DAILY aspirin [Adult Aspirin Regimen] 81 mg tablet,delayed release (DR/EC) 81 mg PO DAILY melatonin 5 mg capsule 5 mg PO .qhs PRN (Reason: Insomnia) acetaminophen [Arthritis Pain Relief (acetam)] 650 mg tablet extended release 650 mg PO QID PRN (Reason: Pain) polyethylene glycol 3350 17 gram/dose powder 17 g PO DAILY PRN (Reason: Constipation) loratadine 10 mg tablet 10 mg PO DAILY PRN (Reason: Allergy Symptoms) Saline Nasal 0.65 % aerosol,spray 4 spray INTRANASAL QID PRN (Reason: Dry Nasal Passages) Calcium 600/Vit D 800 1 tab-cap PO DAILY omega-3 fatty acids-vitamin E 1,000 mg Capsule 1 cap PO DAILY tamsulosin 0.4 mg capsule 0.4 mg PO DAILY Robitussin Cough and Cold CF 2.5-5-50 mg/5 mL liquid 15 ml PO Q4H PRN (Reason: cold symptoms) Qty: 118 0RF Rx Instructions: take 15 ml po q4hr prn for cough oseltamivir [Tamiflu] 30 mg capsule 30 mg PO DAILY 5 Days Qty: 5 0RF mirtazapine 15 mg tablet 15 mg PO QHS Qty: 30 3RF finasteride 5 mg tablet 5 mg PO DAILY Qty: 90 1RF fluticasone propionate 50 mcg/actuation spray,suspension 1 spray INTRANASAL BID Qty: 16 0RF verapamil 240 mg capsule,ext rel. pellets 24 hr 240 mg PO DAILY Qty: 90 1RF donepezil [Aricept] 5 mg tablet 5 mg PO QHS Qty: 90 1RF pravastatin 20 mg tablet 20 mg PO DAILY Qty: 90 0RF Rx Instructions: TAKE 1 TABLET BY MOUTH EVERY DAY propranolol 20 mg tablet 20 mg PO Q12H Qty: 180 1RF Rx Instructions: TAKE 1 TABLET BY MOUTH EVERY 12 HOURS Date of admission: 06/27/24 05:19 Primary Care Provider: Willi Leiva Admitting Provider: Karrie Hale Attending physician on admission: Karrie Hale Condition: Stable Hospitalist MIPS Heart Failure (Exclusion) Patient has history of Heart Transplant or Left Ventricular Assistive Device?: No IF YES, STOP HERE Heart Failure (Qualifier) Patient has current or prior documentation of LVEF less than or equal to 40%, or mod/servere depressed LVSF?: No IF NO, STOP HERE
[2024-06-28 12:13] VITALS: O2SAT 95
[2024-06-28] MEDS: CYCLOBENZAPRINE HCL 5 MG TABLET PO (13:26)
[2024-06-28 13:40] VITALS: BP 150/66; PULSE 69; RESP 16; TEMP 36.8; O2SAT 95
== END 2024-06-28 14:18 | disposition hospice, home (50) | DRG 948 ==
LOC: ANHED 04:02 → ANH3MEDSUR 06-28 11:04
PROVIDERS: Admitting Provider Internal Medicine; Emergency Provider Emergency Medicine; PCP Family Medicine; Visit Provider Nurse Practitioner
DX: R41.82 Altered mental status, unspecified (principal); J10.1 Influenza due to other identified influenza virus with other respiratory manifestations; F03.90 Unspecified dementia, unspecified severity, without behavioral disturbance, psychotic disturbance, mood disturbance, and anxiety; K21.9 Gastro-esophageal reflux disease without esophagitis; E55.9 Vitamin D deficiency, unspecified; I12.9 Hypertensive chronic kidney disease with stage 1 through stage 4 chronic kidney disease, or unspecified chronic kidney disease; N18.30 Chronic kidney disease, stage 3 unspecified; N40.1 Benign prostatic hyperplasia with lower urinary tract symptoms; Z51.5 Encounter for palliative care; E78.2 Mixed hyperlipidemia
CPT/HCPCS: 36415; 71045; 80053; 85025; 93005; 99285; A9270